=== PATIENT | male | born 1960 | race Caucasian/White ===

== ENCOUNTER 2018-10-03 16:18 | Inpatient (IN) ==
[2018-10-03] MEDS ORDERED: OXYCODONE Oral CONC 10 MG/0.5 ML ORAL.SYG SL PRN (22:08)
[2018-10-03] MEDS ORDERED: Naloxone 0.4 MG/ML INJ IVP PRN (22:08)
[2018-10-03] MEDS ORDERED: Ondansetron 4 MG/2 ML VIAL IVP PRN (22:08)
[2018-10-03] MEDS ORDERED: Dextrose Gel 15 GM/37.5 ML TUBE PO PRN ×2 (22:10)
[2018-10-03] MEDS ORDERED: D5% in Water 1,000 ML IVC PRN (22:10)
[2018-10-03] MEDS ORDERED: *HR* Dextrose 50 % in Water (Syg) 50 ML SYRINGE IVP PRN (22:10)
[2018-10-03] MEDS ORDERED: Nicotine 21 MG PATCH.TD24 TD SCH (22:15)
[2018-10-03] MEDS: 0.9 % Sodium Chloride 1,000 ML IVC SCH (22:49)
[2018-10-03] MEDS: OXYCODONE Oral CONC 10 MG/0.5 ML ORAL.SYG SL PRN (22:49)
[2018-10-03] MEDS: Insulin LISPRO 300 UNITS/3 ML VIAL SQ SCH (23:11)
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
[2018-10-04 01:14] LABS: Hematocrit 33.6 % (37.5-50.1); Hemoglobin 11.2 g/dL (12.9-16.9); Mean Corpuscular HGB Conc 33.3 g/dL (31.6-35.5); Mean Corpuscular Hemoglobin 30.9 pg (28.0-33.3); Mean Corpuscular Volume 92.8 fL (83.0-100.0); Mean Platelet Volume 9.4 fL (9.4-12.4); Platelet Count 268 K/mcL (140-400); Red Blood Count 3.62 M/mcL (4.19-5.50); Red Cell Distribution Width 11.6 % (11.5-14.5)
[2018-10-04 01:24] LABS: INR 1.3; Prothrombin Time 14.6 Seconds (9.4-12.1)
[2018-10-04 01:27] LABS: Activated Partial Thrombo Time 29.3 Seconds (26.0-36.0)
[2018-10-04 01:34] LABS: BUN/Creatinine Ratio 26 (6-26); Blood Urea Nitrogen 30 mg/dL (6-20); Calcium 8.1 mg/dL (8.6-10.3); Carbon Dioxide 26 mEq/L (23-29); Chloride 101 mEq/L (98-107); Glucose 173 mg/dL (70-105); Osmolality,Calculated 286 (280-300); Potassium 3.8 mEq/L (3.5-5.1); Sodium 133 mEq/L (136-145); eGFR For Non-African Americans > 60 (> 60)
[2018-10-04] MEDS: OXYCODONE Oral CONC 10 MG/0.5 ML ORAL.SYG SL PRN ×3 (02:49→20:27)
[2018-10-04] MEDS: Insulin LISPRO 300 UNITS/3 ML VIAL SQ SCH ×2 (05:31→12:10)
[2018-10-04] MEDS ORDERED: cefTRIAXone 1,000 MG in Water for inj. (sterile) 20 ML 10 ML IVP SCH (09:00)
[2018-10-04] MEDS: 0.9 % Sodium Chloride 1,000 ML IVC SCH (11:04)
[2018-10-04] MEDS: Cefepime HCl 2,000 MG in Water for inj. (sterile) 20 ML 20 ML IVP SCH (11:32)
[2018-10-04] MEDS: MetroNIDAZOLE 500 MG/100 ML 500 MG/100 ML BAG IVPB SCH ×3 (11:33→23:40)
[2018-10-04] MEDS ORDERED: Insulin LISPRO 300 UNITS/3 ML VIAL SQ SCH (12:42)
--- NOTE | 2018-10-04 12:43 | Internal Med Progress Note ---
Hospitalist Progress Note - Encounter Date of Encounter: 10/04/18 Time of Encounter: 12:40 - Subjective Interval History: Patient seen and examined at bedside. Patient reports significant pain in his right hand. He states he did have some redness previously traveling up his arm but this is resolved. Denies any fevers or chills. - Exam Vitals: Temp Pulse Resp BP Pulse Ox 98.2 F 77 15 102/57 92 10/04/18 11:07 10/04/18 11:07 10/04/18 11:07 10/04/18 11:07 10/04/18 11:07 Exam: Gen.: Alert and oriented 3, no acute distress Heart: Regular in rhythm, no murmurs, rubs, gallops Musculoskeletal: Right hand with large wound with underlying fluctuance and purulent drainage at the hyperthenar eminence. Mild erythema extending up to the fourth and fifth digits. Pain with active and passive range of motion. No erythema proximal to the wrist joint. - Assessment and Plan (1) Cellulitis of right hand Current Visit: Yes Status: Acute Assessment and Plan: Patient has significant cellulitis of the right hand with possible underlying abscess. I am concerned about tendon involvement. Secondary to penetrating wound with pieces of metal. Patient reports that his tetanus is up-to-date with the last 5 years. Currently on vancomycin and Rocephin, will discontinue Rocephin and add cefepime and metronidazole for pseudomonal and anaerobic coverage. Orthopedic consult pending, patient may or surgical intervention. (2) Diabetes Current Visit: Yes Status: Acute Assessment and Plan: Blood sugar mildly elevated above goal. Increase to monitor dose sliding scale every 6 hours while nothing by mouth. We will restart home but once the patient is eating. (3) DVT prophylaxis Current Visit: Yes Status: Acute Assessment and Plan: EPCDs - Time Spent with Patient Total time spent is greater than 50% in coordination of care (as documented) at patient's floor/unit and/or counseling patient: Internal Medicine: Result - Labs CBC & Chem 7: 10/04/18 00:52 10/04/18 00:52 Labs: Short CBC 10/04/18 Range/Units 00:52 WBC 11.4 H (4.3-11.1) K/mcL Hgb 11.2 L (12.9-16.9) g/dL Hct 33.6 L (37.5-50.1) % Plt Count 268 (140-400) K/mcL BMP 10/04/18 00:52 Sodium 133 L Potassium 3.8 Chloride 101 Carbon Dioxide 26 BUN 30 H Creatinine 1.14 Glucose 173 H Calcium 8.1 L - ABG Interpretation ABG results: PT/INR, D-dimer PT 14.6 Seconds (9.4-12.1) H 10/04/18 00:52 - Impressions Impressions Hand X-Ray 10/03/18 22:14 IMPRESSION: Soft tissue swelling and gas along the dorsal and ulnar aspect of the hand. No evidence of osteomyelitis involving the underlying 5th metacarpal which demonstrates evidence of prior (healed) injury. Radiopaque structure obscures the distal pinky and proximal ring finger. Mild osteoarthrosis. 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
[2018-10-04] MEDS ORDERED: Isovue-370 500 ML BOTTLE IVP ONE (14:58)
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
[2018-10-04] MEDS ORDERED: *HR* LORazepam 2 MG/ML VIAL IVP ONE (16:59)
[2018-10-04] MEDS ORDERED: *HR* Midazolam HCl 2 MG/2 ML VIAL ONE (17:33)
[2018-10-04] MEDS ORDERED: *HR* Propofol 200 MG/20 ML VIAL IVP ONE ×2 (17:33→17:39)
[2018-10-04] MEDS ORDERED: Lidocaine -MPF 2% 2 ML VIAL ONE ×2 (17:33→17:34)
[2018-10-04] MEDS ORDERED: *HR* FentaNYL (PF) 100 MCG/2 ML VIAL ONE (17:33)
[2018-10-04] MEDS ORDERED: Bupivacaine/EPI 1:200k 0.5%PF 10 ML VIAL ONE (17:38)
--- NOTE | 2018-10-04 17:48 | Anesthesia Evaluation PreOp ---
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: Other (hx drug abuse (most cocaine)) Other Medical History: Diabetes Type I Anesthesia History: No Prior Anesthetic Complications (except waking up in the middle of surgery) Alcohol Use: occasionally Drug use: cocaine, marijuana Medications and Allergies Acetaminophen [Tylenol] 650 mg PO QID PRN 10/04/18 [History] Albuterol Neb [Proventil Neb] 2.5 mg IH TID PRN 10/04/18 [History] Albuterol Sulfate [Ventolin Hfa] 2 puff IH QID PRN 10/04/18 [History] Amitriptyline HCl 100 mg PO HS 10/04/18 [History] Aspirin [Lo-Dose Aspirin EC] 81 mg PO DAILY 10/04/18 [History] Clindamycin [Cleocin] 300 mg PO QID 10/04/18 [History] Dapagliflozin Propanediol [Farxiga] 10 mg PO DAILY 10/04/18 [History] Gabapentin 800 mg PO TID 10/04/18 [History] Insulin Glargine [Lantus] 20 unit SQ BID 10/04/18 [History] Naproxen [Naprosyn] 250 mg PO TID PRN 10/04/18 [History] Tamsulosin HCl [Flomax] 0.4 mg PO HS 10/04/18 [History] Allergy/AdvReac Type Severity Reaction Status Date / Time Penicillins Allergy Anaphylaxis Verified 10/04/18 10:28 - Meds/Allergy Pre-op Review Medications Reviewed: Yes Allergies Reviewed: Yes Beta Blockers on Current Med List: No Anesthesia Results - Labs 10/04/18 00:52 10/04/18 00:52 Anesthesia Exam Weight: 70 kg NPO (# of Hours): > 8 hrs - HEENT Pupil (Motor): Pupils equal, EOMI Oral Opening: Greater than 3 - PIT FURNACE MELTER LOC: Oriented - Cardiac Rhythm: Regular - Pulmonary Breath Sounds: bilateral Clear Respiratory Effort: Symmetrical Anesthesia Assess/Plan ASA Score: 3 Level of consciousness: Cooperative Anesthetic Plan: General Monitoring Plan: Standard Monitors Recovery Plan: PACU
[2018-10-04] MEDS ORDERED: *HR* PHENYLEPHRINE 1,000 MCG/10 ML SYRINGE IVP ONE (17:57)
[2018-10-04] MEDS ORDERED: EPHEDrine 50 MG/ML VIAL ONE (18:06)
--- NOTE | 2018-10-04 18:35 | Orthopedic Operative Note ---
Date of procedure: 10/04/18 Procedure: OPERATIVE REPORT SURGEON: Henry Tate MD PREOPERATIVE DIAGNOSIS: Right hand abscess POSTOPERATIVE DIAGNOSIS: Right hand abscess PROCEDURE: Incision, drainage, irrigation, and debridement of the right hand ANESTHESIA: Gen. anesthesia SPECIMENS: Deep swabs taken for culture; soft tissue taken for culture PREOPERATIVE NOTE The surgical plan was reviewed with the patient. The risks, benefits, alternatives, and potential complications of this procedure were discussed with the patient including injury to veins, arteries, nerves, tendons, ligaments, and bone. Also discussed were the risks of infection, bleeding, pain, blood clots, the possible need for a blood transfusion, the possible need for further procedures, heart attack, stroke, and . Additional risks include the need for further debridements. All of this was explained in simple terms, and the patient verbalized understanding and wished to proceed. Consent was given to proceed with surgery. PROCEDURE: The patient was seen in the preoperative holding area where the identify and the consent were confirmed. The right hand was marked. Final questions were answered. The patient was brought back to the operating room and placed supine on the operating room table. A huddle was performed with the patient and all vital surgical team members confirming patient identity, the correct procedure, and the correct operative site. Gen. anesthesia was administered. The operative extremity was prepped and draped in the usual sterile fashion. A surgical time out was performed immediately preceding the incision with all personnel in the operating room to confirm patient identity, the correct operative site and extremity, correct radiographic studies, availability of appropriate surgical equipment, and agreement on the planned procedure. The tourniquet was inflated without exsanguination. Attention was first directed to the hyperthenar eminence region where there was the old puncture wound which was spread open decompressing grossly purulent material. This was swabbed for cultures. The wound was then opened proximally and distally by several centimeters and spread open. There was a significant amount of surrounding necrotic fat which was sharply debrided and sent for culture. The infection tracked down to the hyperthenar eminence which was opened but there was no further purulent material and relatively healthy-appearing musculature. Necrotic skin edges were debrided. Attention was then directed to the dorsum of the hand were a longitudinal incision was made over the fourth ray dorsally and the skin and subcutaneous tissue spread open decompressing a second pocket of grossly purulent material as indicated on the CT scan. Surrounding necrotic fat was also sharply debrided. Both wounds were irrigated with a total of 6 L of saline. The wound beds looked clean after debridement and irrigation. There packed open with quarter-inch iodoform packing. A soft, sterile dressing was applied. The instrument, sponge, and needle counts were correct after wound closure. POST OPERATIVE PLAN: Daily local wound care with dressing changes and possible second look I&D on Tuesday if not improving clinically. Was there an mobile unit assistant present: No Estimated blood loss (cc): 2
[2018-10-04] MEDS ORDERED: D5% in Water 1,000 ML IVC PRN (19:20)
[2018-10-04] MEDS ORDERED: Ondansetron 4 MG/2 ML VIAL IVP PRN (19:20)
[2018-10-04] MEDS ORDERED: Dextrose Gel 15 GM/37.5 ML TUBE PO PRN ×2 (19:20)
[2018-10-04] MEDS ORDERED: OXYCODONE Oral CONC 10 MG/0.5 ML ORAL.SYG SL PRN (19:20)
[2018-10-04] MEDS ORDERED: *HR* Dextrose 50 % in Water (Syg) 50 ML SYRINGE IVP PRN (19:20)
[2018-10-04] MEDS ORDERED: Naloxone 0.4 MG/ML INJ IVP PRN (19:20)
[2018-10-04] MEDS: Gabapentin 400 MG CAPSULE PO SCH (20:27)
[2018-10-04] MEDS: Nicotine 21 MG PATCH.TD24 TD SCH (20:28)
[2018-10-04] MEDS ORDERED: Gabapentin 400 MG CAPSULE PO SCH (21:00)
--- NOTE | 2018-10-04 23:26 | Anesthesia Evaluation Post Op ---
Date of Encounter: 10/04/18 Time of Encounter: 19:00 - Vital Signs Vital Signs: Vital Signs Temp Pulse Resp BP Pulse Ox 10/04/18 18:58 98.7 F 92 18 104/61 98 10/04/18 18:48 91 17 100/59 93 10/04/18 18:38 90 18 91/54 94 10/04/18 18:28 100.2 F H 87 18 96/54 98 10/04/18 14:32 98.9 F 89 15 136/83 98 10/04/18 11:07 98.2 F 77 15 102/57 92 10/04/18 06:51 98.8 F 90 15 102/64 91 10/04/18 05:27 99.9 F H 96 15 109/64 93 10/03/18 23:30 99.3 F 86 15 141/74 93 Intake and Output 10/04/18 10/04/18 10/04/18 07:59 15:59 23:59 Intake Total 1000 / 1100 100 / 1100 Output Total 0 / 2 0 / 2 2 / 2 Balance 1000 / 1098 100 / 1098 -2 / 1098 Intake: IV Fluids 1000 / 1100 100 / 1100 0.9 % Sodium Chloride 1,000 ML 1000 / 1000 @ 125 mls/hr IVC .Q8H [facility] Rx#: [id number] Flagyl Premix 500 MG/100 ML 500 100 / 100 mg In 100 ml @ 100 mls/hr IVPB Q8HR [facility] Rx#:[id number] Oral 0 / 0 0 / 0 Output: Urine 0 / 0 0 / 0 Estimated Blood Loss 2 / 2 Other: Meal BREAKFAST NPO NPO Percent of Meal Consumed 0% Weight 70.3 kg Blood Glucose* 228 237 102 Patient Weight 10/04/18 23:59 Weight 70.3 kg - Lungs Lungs: Clear Ascult./Percussion - Airway Airway: Non-obstructed - Cardiovascular Regular Rate - Mental Status Mental Status: Alert & Oriented, Answers Appropriately - Nausea Vomiting Nausea Vomiting: Not Present - Hydration Hydration: Tolerates oral liquids, Has not voided - Discharge PostOp Status: Transfer Patient to floor Anes Supervising Prov Stmt: Pt seen/evaluated, VSS And has met criteria for discharge to floor. - MD Irena
[2018-10-05] MEDS: Insulin LISPRO 300 UNITS/3 ML VIAL SQ SCH ×4 (04:00→18:29)
[2018-10-05] MEDS: Cefepime HCl 2,000 MG in Water for inj. (sterile) 20 ML 20 ML IVP SCH ×3 (05:05→18:43)
[2018-10-05] MEDS: OXYCODONE Oral CONC 10 MG/0.5 ML ORAL.SYG SL PRN ×3 (05:06→21:05)
--- NOTE | 2018-10-05 07:46 | Orthopedics Progress Note ---
Date of Encounter: 10/05/18 Time of Encounter: 07:43 - Assessment and Plan (1) Cellulitis of right hand Current Visit: Yes Status: Acute Subjective Interval history: S: Patient resting in bed comfortably. Says his hand on the right feels significantly better than yesterday after decompression of the abscess O: Low-grade temps overnight but currently afebrile on the vital signs are stable Wound beds look good without any purulent drainage. They are repacked open Slight improvement of the swelling Improved erythema Decreased motion of the digits due to pain inhibition and swelling Sensation is at his baseline Cultures pending AM labs pending A: I&D of the right hand, postoperative day 1 P: Twice daily dressing and packing changes Antibiotics per the primary team Follow cultures Elevation Objective Vital signs: Vital Signs Temp Pulse Resp BP Pulse Ox 10/05/18 06:42 99.0 F 84 15 102/65 96 10/05/18 03:57 100.4 F H 87 15 140/71 94 10/04/18 23:00 82 109/68 10/04/18 22:00 81 108/66 10/04/18 21:00 81 110/69 10/04/18 20:30 85 101/64 10/04/18 20:00 86 103/65 10/04/18 19:45 88 104/68 10/04/18 19:25 88 18 102/66 100 10/04/18 18:58 98.7 F 92 18 104/61 98 10/04/18 18:48 91 17 100/59 93 10/04/18 18:38 90 18 91/54 94 10/04/18 18:28 100.2 F H 87 18 96/54 98 10/04/18 14:32 98.9 F 89 15 136/83 98 10/04/18 11:07 98.2 F 77 15 102/57 92 Intake and Output 10/04/18 10/04/18 10/05/18 15:59 23:59 07:59 Intake Total 100 / 1100 0 / 0 Output Total 0 / 2 2 / 2 900 / 900 Balance 100 / 1098 -2 / 1098 -900 / -900 Intake: IV Fluids 100 / 1100 Flagyl Premix 500 MG/100 ML 500 100 / 100 mg In 100 ml @ 100 mls/hr IVPB Q8HR [facility] Rx#:[id number] Oral 0 / 0 0 / 0 Output: Urine 0 / 0 900 / 900 Estimated Blood Loss 2 / 2 Other: Meal BREAKFAST NPO NPO Percent of Meal Consumed 0% Blood Glucose* 237 102 128 - Labs CBC & BMP: 10/04/18 00:52 10/04/18 00:52 Labs: Abnormal lab results WBC 11.4 K/mcL (4.3-11.1) H 10/04/18 00:52 RBC 3.62 M/mcL (4.19-5.50) L 10/04/18 00:52 Hgb 11.2 g/dL (12.9-16.9) L 10/04/18 00:52 Hct 33.6 % (37.5-50.1) L 10/04/18 00:52 PT 14.6 Seconds (9.4-12.1) H 10/04/18 00:52 Sodium 133 mEq/L (136-145) L 10/04/18 00:52 BUN 30 mg/dL (6-20) H 10/04/18 00:52 Glucose 173 mg/dL (70-105) H 10/04/18 00:52 POC Glucose 102 mg/dL (70-99) H 10/04/18 18:38 Calcium 8.1 mg/dL (8.6-10.3) L 10/04/18 00:52 Consult Discharge Plan - Plan Referrals: NONE,PCP [Primary Care Provider] -
[2018-10-05 08:58] LABS: Basophils % 0.4 %; Eosinophils # 0.1 K/mcL (0.0-0.6); Eosinophils % 1.1 %; Hematocrit 34.2 % (37.5-50.1); Hemoglobin 11.2 g/dL (12.9-16.9); Immature Granulocytes % 0.4 % (0-4); Lymphocytes # 1.3 K/mcL (0.6-4.6); Lymphocytes % 12.6 %; Mean Corpuscular HGB Conc 32.7 g/dL (31.6-35.5); Mean Corpuscular Hemoglobin 31.2 pg (28.0-33.3); Mean Corpuscular Volume 95.3 fL (83.0-100.0); Mean Platelet Volume 9.2 fL (9.4-12.4); Monocytes # 0.7 K/mcL (0.0-1.3); Monocytes % 6.5 %; Neutrophils # 8.2 K/mcL (1.6-8.9); Platelet Count 258 K/mcL (140-400); Red Blood Count 3.59 M/mcL (4.19-5.50); Red Cell Distribution Width 11.8 % (11.5-14.5)
[2018-10-05 09:09] LABS: BUN/Creatinine Ratio 18 (6-26); Blood Urea Nitrogen 13 mg/dL (6-20); Calcium 8.3 mg/dL (8.6-10.3); Carbon Dioxide 23 mEq/L (23-29); Chloride 102 mEq/L (98-107); Glucose 105 mg/dL (70-105); Magnesium 1.9 mg/dL (1.6-2.6); Osmolality,Calculated 276 (280-300); Potassium 4.4 mEq/L (3.5-5.1); Sodium 133 mEq/L (136-145); eGFR For Non-African Americans > 60 (> 60)
[2018-10-05] MEDS: MetroNIDAZOLE 500 MG/100 ML 500 MG/100 ML BAG IVPB SCH ×3 (10:24→23:26)
[2018-10-05] MEDS: Gabapentin 400 MG CAPSULE PO SCH ×3 (10:24→21:05)
--- NOTE | 2018-10-05 11:16 | Internal Med Progress Note ---
Hospitalist Progress Note - Encounter Date of Encounter: 10/05/18 Time of Encounter: 11:13 - Subjective Interval History: Patient seen and examined at bedside. Patient states he feels slightly better today. He still reports significant pain in his right hand but feels like this is improved after surgery. Denies any fevers or chills. - Exam Vitals: Temp Pulse Resp BP Pulse Ox 98.0 F 82 15 96/54 93 10/05/18 10:32 10/05/18 10:32 10/05/18 10:32 10/05/18 10:32 10/05/18 10:32 Exam: Gen.: Alert and oriented 3, no acute distress Heart: Regular in rhythm, no murmurs, rubs, gallops Musculoskeletal: Right hand has large bulky dressing in place that is clean dry and intact. He has tenderness with active and passive range of motion of the fourth and fifth digit of the right hand. - Assessment and Plan (1) Cellulitis of right hand Current Visit: Yes Status: Acute Assessment and Plan: Postop day 1 status post surgical debridement of right hand cellulitis/abscess. Cultures are pending. Continue broad-spectrum antibiotics with vancomycin, cefepime, metronidazole. We will await culture results and de-escalate antibiotics based on culture results. Appreciate orthopedics assistance and patient may require further surgical debridement this hospitalization. (2) Diabetes Current Visit: Yes Status: Acute Assessment and Plan: Blood sugars under good control. The patient is eating we will transition to Lantus with mealtime sliding scale coverage. Continue monitor blood sugars. (3) DVT prophylaxis Current Visit: Yes Status: Acute Assessment and Plan: EPCDs - Time Spent with Patient Total time spent is greater than 50% in coordination of care (as documented) at patient's floor/unit and/or counseling patient: Internal Medicine: Result - Labs CBC & Chem 7: 10/05/18 08:02 10/05/18 08:02 Labs: Short CBC 10/05/18 Range/Units 08:02 WBC 10.4 (4.3-11.1) K/mcL Hgb 11.2 L (12.9-16.9) g/dL Hct 34.2 L (37.5-50.1) % Plt Count 258 (140-400) K/mcL Neutrophils # 8.2 (1.6-8.9) K/mcL BMP 10/05/18 08:02 Sodium 133 L Potassium 4.4 Chloride 102 Carbon Dioxide 23 BUN 13 Creatinine 0.72 Glucose 105 Calcium 8.3 L - ABG Interpretation ABG results: PT/INR, D-dimer PT 14.6 Seconds (9.4-12.1) H 10/04/18 00:52 - Impressions Impressions Hand CT 10/04/18 14:58 IMPRESSION: 1. Large rim enhancing fluid collection centered along the ulnar aspect of the hand along the length of the 5th metacarpal and extending along the dorsal aspect of the 5th MCP joint which contains a large amount of gas and is consistent with abscess. This extends to the volar skin surface and measures 1.5 x 3.0 x 4.8 cm. A 2nd small circumscribed collection dorsal to the 4th metacarpal head is also present measuring 0.5 x 0.6 x 1.0 cm compatible with 2nd small abscess. Extensive soft tissue edema. 2. No acute fracture identified and no CT evidence for osteomyelitis at this time. D/ / Barry Pina MD / Barry Pina MD Interpreting Provider: Barry Pina MD Consult Discharge Plan - Plan Referrals: NONE,PCP [Primary Care Provider] - ___ (2) Diabetes Qualifiers: Diabetes mellitus type: type 2 Diabetes mellitus detention insulin use: without adjunct faculty for medical terminology use Diabetes mellitus complication status: with hyperglycemia Qualified Code(s): E11.65 - Type 2 diabetes mellitus with hyperglycemia
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
[2018-10-05] MEDS ORDERED: Insulin DETEMIR 100 UNIT/ML X5UNITS SQ SCH (21:00)
[2018-10-05] MEDS ORDERED: Insulin LISPRO 300 UNITS/3 ML VIAL SQ SCH (21:00)
[2018-10-05] MEDS: Nicotine 21 MG PATCH.TD24 TD SCH (21:06)
[2018-10-06] MEDS: Cefepime HCl 2,000 MG in Water for inj. (sterile) 20 ML 20 ML IVP SCH (05:55)
--- NOTE | 2018-10-06 07:41 | Orthopedics Progress Note ---
Date of Encounter: 10/06/18 Time of Encounter: 07:37 - Assessment and Plan (1) Cellulitis of right hand Current Visit: Yes Status: Acute Subjective Interval history: S: Patient resting in bed comfortably. Continued pain on the ulnar side of the right hand, at this point more focused on the webspace volarly and dorsally between the ring and small fingers O: Afebrile on the vital signs are stable I&D site wounds look good without any purulence Persistent significant swelling and erythema Significant tenderness over the volar and dorsal webspace between the ring and small fingers Grossly flexes and extends the digits with limitation due to pain Fingertips are sensate at his baseline and well-perfused Labs pending Preliminary culture results show gram-negative species A: Hand infection, right, postoperative day 2 after I&D P: At this point my recommendation is second look I&D, particularly focused on the webspace between the ring and small fingers given the significant tenderness and swelling in this area. We will proceed today to the operating room for washout. Continue elevation of the right upper extremity Continue IV antibiotics per the primary team and the infectious disease teams. Objective Vital signs: Vital Signs Temp Pulse Resp BP Pulse Ox 10/06/18 04:44 98.9 F 88 19 122/74 90 10/06/18 00:19 99.3 F 86 16 120/74 90 10/05/18 21:09 93 10/05/18 20:30 99.2 F 89 18 109/68 93 10/05/18 14:03 98.1 F 89 15 106/69 93 10/05/18 10:32 98.0 F 82 15 96/54 93 10/05/18 09:00 93 Intake and Output 10/05/18 10/05/18 10/06/18 15:59 23:59 07:59 Intake Total 580 / 1950 1000 / 1950 370 / 370 Output Total 500 / 1400 0 / 1400 Balance 80 / 550 1000 / 550 370 / 370 Intake: IV Fluids 100 / 1470 1000 / 1470 370 / 370 Maxipime 2,000 MG In Water for 40 / 60 20 / 20 inj. (sterile) 20 ML @ 300 mls/ hr IVP Q12HR [facility] Rx#:[id number] Rocephin 1,000 MG In Water for 10 / 10 inj. (sterile) 10 ML @ 600 mls/ hr IVP DAILY [facility] Rx#:[id number] Flagyl Premix 500 MG/100 ML 500 100 / 400 200 / 400 100 / 100 mg In 100 ml @ 100 mls/hr IVPB Q8HR [facility] Rx#:[id number] Vancocin 1,000 MG In 0.9 % 500 / 750 250 / 250 Sodium Chloride 250 ML @ 167 mls/hr IVPB Q12H [facility] Rx#: [id number] Vancocin 1,500 MG In 0.9 % 250 / 250 Sodium Chloride 250 ML @ 166.67 mls/hr IVPB ONCE ONE Rx#: [id number] Oral 480 / 480 0 / 480 Output: Urine 500 / 1400 0 / 1400 Other: Meal Breakfast Percent of Meal Consumed 100% Blood Glucose* 208 187 - Labs CBC & BMP: 10/05/18 08:02 10/05/18 08:02 Labs: Abnormal lab results WBC 11.4 K/mcL (4.3-11.1) H 10/04/18 00:52 RBC 3.59 M/mcL (4.19-5.50) L 10/05/18 08:02 Hgb 11.2 g/dL (12.9-16.9) L 10/05/18 08:02 Hct 34.2 % (37.5-50.1) L 10/05/18 08:02 MPV 9.2 fL (9.4-12.4) L 10/05/18 08:02 PT 14.6 Seconds (9.4-12.1) H 10/04/18 00:52 Sodium 133 mEq/L (136-145) L 10/05/18 08:02 BUN 30 mg/dL (6-20) H 10/04/18 00:52 Glucose 173 mg/dL (70-105) H 10/04/18 00:52 POC Glucose 187 mg/dL (70-99) H 10/05/18 20:27 276 (280-300) L 10/05/18 08:02 Calcium 8.3 mg/dL (8.6-10.3) L 10/05/18 08:02 Vancomycin Trough 11 mcg/mL (5-10) H 10/05/18 11:13 Consult Discharge Plan - Plan Referrals: NONE,PCP [Primary Care Provider] -
[2018-10-06 08:16] LABS: Basophils % 0.5 %; Eosinophils # 0.1 K/mcL (0.0-0.6); Eosinophils % 1.7 %; Hematocrit 35.8 % (37.5-50.1); Hemoglobin 11.8 g/dL (12.9-16.9); Immature Granulocytes % 0.5 % (0-4); Lymphocytes # 1.4 K/mcL (0.6-4.6); Lymphocytes % 22.7 %; Mean Corpuscular Hemoglobin 31.2 pg (28.0-33.3); Mean Corpuscular Volume 94.7 fL (83.0-100.0); Mean Platelet Volume 8.9 fL (9.4-12.4); Monocytes # 0.5 K/mcL (0.0-1.3); Monocytes % 7.9 %; Neutrophils # 4.2 K/mcL (1.6-8.9); Platelet Count 302 K/mcL (140-400); Red Blood Count 3.78 M/mcL (4.19-5.50); Red Cell Distribution Width 11.6 % (11.5-14.5); Segmented Neutrophils % 66.7 %
[2018-10-06] MEDS: Insulin LISPRO 300 UNITS/3 ML VIAL SQ SCH ×2 (08:30→18:14)
[2018-10-06 08:31] LABS: Blood Urea Nitrogen 16 mg/dL (6-20); Calcium 8.8 mg/dL (8.6-10.3); Carbon Dioxide 28 mEq/L (23-29); Chloride 98 mEq/L (98-107); Glucose 228 mg/dL (70-105); Magnesium 1.9 mg/dL (1.6-2.6); Osmolality,Calculated 282 (280-300); Potassium 4.3 mEq/L (3.5-5.1); Sodium 132 mEq/L (136-145)
[2018-10-06 09:08] LABS: BUN/Creatinine Ratio 20 (6-26); eGFR For Non-African Americans > 60 (> 60)
[2018-10-06] MEDS: Gabapentin 400 MG CAPSULE PO SCH ×3 (10:12→21:05)
--- NOTE | 2018-10-06 10:22 | Anesthesia Evaluation PreOp ---
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 Any Significant HX Other Medical History: Diabetes Type I Anesthesia History: No Prior Anesthetic Complications, Past Anesthesia (I &D R hand) Alcohol Use: occasionally Drug use: cocaine, marijuana Medications and Allergies Acetaminophen [Tylenol] 650 mg PO QID PRN 10/04/18 [History] Albuterol Neb [Proventil Neb] 2.5 mg IH TID PRN 10/04/18 [History] Albuterol Sulfate [Ventolin Hfa] 2 puff IH QID PRN 10/04/18 [History] Amitriptyline HCl 100 mg PO HS 10/04/18 [History] Aspirin [Lo-Dose Aspirin EC] 81 mg PO DAILY 10/04/18 [History] Clindamycin [Cleocin] 300 mg PO QID 10/04/18 [History] Dapagliflozin Propanediol [Farxiga] 10 mg PO DAILY 10/04/18 [History] Gabapentin 800 mg PO TID 10/04/18 [History] Insulin Glargine [Lantus] 20 unit SQ BID 10/04/18 [History] Naproxen [Naprosyn] 250 mg PO TID PRN 10/04/18 [History] Tamsulosin HCl [Flomax] 0.4 mg PO HS 10/04/18 [History] Allergy/AdvReac Type Severity Reaction Status Date / Time Penicillins Allergy Anaphylaxis Verified 10/04/18 10:28 - Meds/Allergy Pre-op Review Medications Reviewed: Yes Allergies Reviewed: Yes Beta Blockers on Current Med List: No Anesthesia Results - Labs 10/06/18 07:59 10/06/18 07:59 Anesthesia Exam Vital Signs/O2 Sat, Most Current Temp Pulse Resp BP Pulse Ox 98.6 F 89 16 107/61 90 10/06/18 08:22 10/06/18 08:22 10/06/18 08:22 10/06/18 08:22 10/06/18 08:22 Weight: 70kg NPO (# of Hours): >8 - HEENT Pupil (Motor): Pupils equal, EOMI Mallampati: II Teeth: Edentulous Oral Opening: Greater than 3 - SHOT PEEN OPERATOR LOC: Oriented SHOT PEEN OPERATOR Motor: Normal RUE, Normal LUE, Normal RLE, Normal LLE, Normal Face SHOT PEEN OPERATOR Sensory: Normal: RUE, LUE, RLE, LLE, Face - Cardiac Rhythm: Regular - Pulmonary Breath Sounds: bilateral Clear Respiratory Effort: Symmetrical Anesthesia Assess/Plan ASA Score: 3 Level of consciousness: Cooperative Anesthetic Plan: General Monitoring Plan: Standard Monitors Recovery Plan: PACU
[2018-10-06] MEDS ORDERED: Lidocaine/EPI 1:200k 1% PF 10 ML VIAL ONE (10:38)
[2018-10-06] MEDS ORDERED: *HR* Midazolam HCl 2 MG/2 ML VIAL ONE (10:43)
[2018-10-06] MEDS ORDERED: *HR* Propofol 200 MG/20 ML VIAL IVP ONE (10:43)
[2018-10-06] MEDS ORDERED: *HR* FentaNYL (PF) 100 MCG/2 ML VIAL ONE (10:43)
[2018-10-06] MEDS ORDERED: Lidocaine -MPF 2% 2 ML VIAL ONE (10:43)
[2018-10-06] MEDS ORDERED: KETAMINE HCL 50 MG/ML SYRINGE ONE (10:47)
[2018-10-06] MEDS ORDERED: Ondansetron 4 MG/2 ML VIAL ONE (10:51)
[2018-10-06] MEDS ORDERED: *HR* Meperidine 25 MG/ML SYRINGE IVP PRN ×2 (10:57→13:02)
[2018-10-06] MEDS ORDERED: Ondansetron 4 MG/2 ML VIAL IVP ONE ×2 (10:57→13:02)
[2018-10-06] MEDS ORDERED: *HR* OxyCODONE Immed Rel 5 MG TABLET PO PRN ×2 (10:57→13:02)
[2018-10-06] MEDS ORDERED: *HR* Promethazine 25 MG/ML VIAL IVP PRN ×2 (10:57→13:02)
[2018-10-06] MEDS ORDERED: Ringers Solution, Lactated 1,000 ML IVC SCH ×2 (11:00→13:02)
[2018-10-06] MEDS ORDERED: Albuterol 2.5 MG/3 ML NEBULIZER ONE (11:10)
[2018-10-06] MEDS: MetroNIDAZOLE 500 MG/100 ML 500 MG/100 ML BAG IVPB SCH (11:16)
[2018-10-06] MEDS: Albuterol 2.5 MG/3 ML NEBULIZER IH ONE ×2 (11:17→17:46)
[2018-10-06] MEDS ORDERED: *HR* PHENYLEPHRINE 1,000 MCG/10 ML SYRINGE IVP ONE (11:45)
--- NOTE | 2018-10-06 12:11 | Internal Med Progress Note ---
Hospitalist Progress Note - Encounter Date of Encounter: 10/06/18 Time of Encounter: 12:09 - Subjective Interval History: Patient seen and examined at bedside. Patient states that he feels okay today. He reports continued pain in his right hand but feels like it slightly better. Denies fevers or chills. - Exam Vitals: Temp Pulse Resp BP Pulse Ox 98.6 F 89 16 107/61 93 10/06/18 08:22 10/06/18 08:22 10/06/18 11:18 10/06/18 08:22 10/06/18 11:18 Exam: Gen.: Alert and oriented 3, no acute distress Heart: Regular in rhythm, no murmurs, rubs, gallops Musculoskeletal: Right hand has large bulky dressing in place that is clean dry and intact. He has tenderness with active and passive range of motion of the fourth and fifth digit of the right hand, slightly improved from yesterday. - Assessment and Plan (1) Cellulitis of right hand Current Visit: Yes Status: Acute Assessment and Plan: Postop day 2 status post initial surgical debridement of right hand cellulitis/abscess. Patient is going back to the ER today for further debridement. Initial wound cultures are positive for Klebsiella oxytoca and Citrobacter braakii, initial surgical cultures were also positive for 2 gram- negative rods however final ID is pending. Continue broad-spectrum antibiotics with vancomycin, cefepime, metronidazole for now. Have consulted infectious disease for further antibiotic recommendations. Appreciate orthopedics assistance. (2) Diabetes Current Visit: Yes Status: Acute Assessment and Plan: Blood sugars mildly elevated. Will not adjust insulin at this time as the patient is nothing by mouth for surgical intervention. Continue monitor blood sugars. (3) DVT prophylaxis Current Visit: Yes Status: Acute Assessment and Plan: EPCDs - Time Spent with Patient Total time spent is greater than 50% in coordination of care (as documented) at patient's floor/unit and/or counseling patient: Internal Medicine: Result - Labs CBC & Chem 7: 10/06/18 07:59 10/06/18 07:59 Labs: Short CBC 10/06/18 Range/Units 07:59 WBC 6.3 (4.3-11.1) K/mcL Hgb 11.8 L (12.9-16.9) g/dL Hct 35.8 L (37.5-50.1) % Plt Count 302 (140-400) K/mcL Neutrophils # 4.2 (1.6-8.9) K/mcL BMP 10/06/18 07:59 Sodium 132 L Potassium 4.3 Chloride 98 Carbon Dioxide 28 BUN 16 Creatinine 0.82 Glucose 228 H Calcium 8.8 - ABG Interpretation ABG results: PT/INR, D-dimer PT 14.6 Seconds (9.4-12.1) H 10/04/18 00:52 Consult Discharge Plan - Plan Referrals: NONE,PCP [Primary Care Provider] - (2) Diabetes Qualifiers: Diabetes mellitus type: type 2 Diabetes mellitus long winder tender insulin use: without long winder tender use Diabetes mellitus complication status: with hyperglycemia Qualified Code(s): E11.65 - Type 2 diabetes mellitus with hyperglycemia
--- NOTE | 2018-10-06 12:54 | Anesthesia Evaluation Post Op ---
Date of Encounter: 10/06/18 Time of Encounter: 12:53 - Vital Signs Vital Signs: Vital Signs/O2 Sat, Most Current Temp Pulse Resp BP Pulse Ox 98.4 F 82 16 116/66 95 10/06/18 12:36 10/06/18 12:46 10/06/18 12:46 10/06/18 12:46 10/06/18 12:46 - Lungs Lungs: Clear Ascult./Percussion - Airway Airway: Non-obstructed - Cardiovascular Regular Rate - Mental Status Mental Status: Alert & Oriented, Answers Appropriately - Pain Pain Scale: 0 Pain Scale used: Numeric (1 - 10) - Nausea Vomiting Nausea Vomiting: Not Present - Hydration Hydration: Ice chips, Has not voided - Discharge PostOp Status: Transfer Patient to floor
[2018-10-06] MEDS ORDERED: *HR* Dextrose 50 % in Water (Syg) 50 ML SYRINGE IVP PRN (13:02)
[2018-10-06] MEDS ORDERED: OXYCODONE Oral CONC 10 MG/0.5 ML ORAL.SYG SL PRN (13:02)
[2018-10-06] MEDS ORDERED: Dextrose Gel 15 GM/37.5 ML TUBE PO PRN ×2 (13:02)
[2018-10-06] MEDS ORDERED: Ondansetron 4 MG/2 ML VIAL IVP PRN (13:02)
[2018-10-06] MEDS ORDERED: D5% in Water 1,000 ML IVC PRN (13:02)
[2018-10-06] MEDS ORDERED: Naloxone 0.4 MG/ML INJ IVP PRN (13:02)
--- NOTE | 2018-10-06 13:58 | Infectious Disease Progress No ---
ID Progress Note Date of Encounter: 10/06/18 Time of Encounter: 13:55 - Subjective Subjective: Patient seen and examined. No acute events noted overnight. Status post repeat I & D and washout this morning. Remains very drowsy and ROS unobtainable. No new issues per nursing. - Objective CBC & Chem 7: 10/09/18 03:49 10/09/18 03:49 - Exam Vitals: Temp Pulse Resp BP Pulse Ox 98.4 F 82 16 116/66 95 10/06/18 12:36 10/06/18 12:46 10/06/18 12:46 10/06/18 12:46 10/06/18 12:46 Exam: Head: Atraumatic, normal inspection, normocephalic. Eye: EOMI, PERRLA, no scleral icterus noted. ENT: Mucous membranes moist. No odontogenic infection noted. Neck: Normal inspection, no meningismus. Respiratory: Clear to auscultation. No rales, respiratory distress, rhonchi, or wheezes noted. Cardiovascular: Regular rate and rhythm, S1 and S2 audible. No murmurs, rubs, or gallops. GI: Soft, nondistended, normal bowel sounds. Extremities:No joint swelling, pedal edema, or tenderness noted. Post-op dressing noted to the right hand. Edema of the exposed fingers noted Cap refill brisk. Neurological: Drowsy, awakens to verbal stimuli but falls back to sleep. Follows commands. Psychiatric: normal affect, normal mood. Skin: Dry, intact, warm. Normal color. No rashes. - Assessment and Plan (1) Sepsis Current Visit: Yes Status: Acute The patient had two SIRS criteria on admission. Likely secondary to right hand cellulitis and abscess. Improved. WBC normal. Afebrile. No tachycardia or tachypnea. Blood cultures drawn 10/04/18 are NGTD x 2 sets. Qualifiers: Sepsis type: sepsis due to unspecified organism Qualified Code(s): A41.9 - Sepsis, unspecified organism SNOMED Code(s): 63632845 (2) Abscess of right hand Current Visit: Yes Status: Acute Location: Right hand. Causative organism: K. oxytoca and C. braakii. Secondary to puncture wound after a fall. Failed outpatient oral antibiotics (Clindamycin). Tetanus vaccine UTD per patient report. CT hand revealed a large rim-enhancing fluid collection centered along the ulnar aspect of the hand along the length of the fifth metacarpal and extending along the dorsal aspect of the fifth MCP joint which contained a large amount of gas and is consistent with abscess. This extends to the volar skin surface and measures 1.5 x 3 x 4.8 cm. A second small circumscribed collection dorsal to the fourth metacarpal head is also present compatible with a second small abscess. Status post I&D by Dr. Collado 10/04/2018; Intra-Op purulence, necrotic tissue was noted Pre-op swab cultures and intra-op cultures positive as above. Currently on Vanc, cefepime, and flagyl. SNOMED Code(s): 31171618391813065 (3) Cellulitis of right hand Current Visit: Yes Status: Acute Location: Right hand. Causative organism: K. oxytoca and C. braakii. Secondary to puncture injury. Currently on Vanc, cefepime, and flagyl. SNOMED Code(s): 31997224 (4) Fall Current Visit: Yes Status: Acute Qualifiers: Encounter type: subsequent encounter Qualified Code(s): W19.XXXD - Unspecified fall, subsequent encounter SNOMED Code(s): 0449769, 036617951 (5) PTSD (post-traumatic stress disorder) Current Visit: Yes Status: Acute SNOMED Code(s): 74625426 (6) Tobacco abuse Current Visit: Yes Status: Acute Patient smokes 3-4 packs a day. Declined nicotine patch. SNOMED Code(s): 120729001 (7) Allergy to multiple antibiotics Current Visit: Yes Status: Acute Allergy to penicillin. Patient told me when his very young/a young child he had anaphylaxis. Tolerating cefepime just fine. SNOMED Code(s): 670279692681458 (8) Diabetes Current Visit: Yes Status: Acute Recommend aggressive glucose monitoring and control to promote wound healing and prevent re-infection. 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 Wound care and activity per the ortho team. Discontinue Vanc and Cefepime. Start Rocephin 2 grams IV daily. Continue flagyl 500mg TID, but transition to PO. Duration of treatment depends on the clinical picture. Monitor renal function and dose-adjust antibiotics. Consult Discharge Plan - Plan Referrals: NONE,PCP [Primary Care Provider] - - Attending Attestation I have personally performed a face to face evaluation on this patient. I have reviewed and agree with the care plan. History and Exam by me shows: Assessment and Plan: 1. Sepsis 2. Abscess of the R hand; Cx + K oxytoca and Citrobacter 3. PTSD 4. Tobacco abuse Recommendations: Await intra-op cultures to finalize. Wound care and activity per the ortho team. Discontinue Vanc and Cefepime. Start Rocephin 2 grams IV daily. Continue flagyl 500mg TID, but transition to PO. Duration of treatment depends on the clinical picture. Monitor renal function and dose-adjust antibiotics.
--- NOTE | 2018-10-06 14:43 | Orthopedic Operative Note ---
Date of procedure: 10/06/18 Procedure: OPERATIVE REPORT SURGEON: Henry Tate MD PREOPERATIVE DIAGNOSIS: Right hand infection POSTOPERATIVE DIAGNOSIS: Right hand infection with collar-button abscess between the ring and small finger rays PROCEDURE: Second look incision, drainage, irrigation, and debridement of the right hand with drainage of collar-button abscess ANESTHESIA: Gen. anesthesia SPECIMENS: Cultures were obtained PREOPERATIVE NOTE The surgical plan was reviewed with the patient. The risks, benefits, al ternatives, and potential complications of this procedure were discussed with the patient including injury to veins, arteries, nerves, tendons, ligaments, and bone. Also discussed were the risks of infection, bleeding, pain, blood clots, the possible need for a blood transfusion, the possible need for further procedures, heart attack, stroke, and . Additional risks include persistent symptoms and the need for further debridements. All of this was explained in simple terms, and the patient verbalized understanding and wished to proceed. Consent was given to proceed with surgery. PROCEDURE: The patient was seen in the preoperative holding area where the identify and the consent were confirmed. The right hand was marked. Final questions were answered. The patient was brought back to the operating room and placed supine on the operating room table. A huddle was performed with the patient and all vital surgical team members confirming patient identity, the correct procedure, and the correct operative site. Gen. anesthesia was administered. The operative extremity was prepped and draped in the usual sterile fashion. A surgical time out was performed immediately preceding the incision with all personnel in the operating room to confirm patient identity, the correct operative site and extremity, correct radiographic studies, availability of appropriate surgical equipment, and agreement on the planned procedure. Tourniquet was inflated without exsanguination. The areas of previous I&D were explored. The volar wound had tenderness exudate in the wound bed which was sharply debrided. More distally the wound was spread open and a small amount of grossly purulent material was obtained. The incision was carried distally in Dilcia fashion over the volar webspace between the ring and small fingers and into the proximal portion of the small finger. This did decompress new purulent material within the webspace. This was copiously irrigated after cultures were obtained. The flexor tendon sheath of the small finger was identified, taking care to protect the neurovascular bundles and there is no purulence within the tendon sheath. There was a moderate amount of necrotic fat within this area of the wound bed which was sharply excised. After copious irrigation and attention was directed dorsally where the wound was spread open. Dissection proceeded de eper between the dorsal, distal ring and small finger metacarpals in the area of the webspace to communicate volarly. This area was also further irrigated. No significant purulence. Moderate amount of necrotic fat was sharply debrided. A total of 6 L of saline was used for the irrigation portion and the center portion of the volar wound was closed with nylon stitches allowing the proximal portion to be left open for drainage and the distal portion of the left open for drainage. A Anselmo drain was placed from volar to dorsal through the collar- button abscess. A soft, sterile dressing was applied. The instrument, sponge, and needle counts were correct after wound closure. POST OPERATIVE PLAN: Continue IV antibiotics through the weekend. Elevation and daily dressing changes. Was there an energy assistant present: No Estimated blood loss (cc): 5
[2018-10-06] MEDS ORDERED: MetroNIDAZOLE 500 MG/100 ML 500 MG/100 ML BAG IVPB SCH (16:00)
[2018-10-06] MEDS: cefTRIAXone 2,000 MG in Water for inj. (sterile) 20 ML 20 ML IVP SCH (17:45)
[2018-10-06] MEDS ORDERED: Cefepime HCl 2,000 MG in Water for inj. (sterile) 20 ML 20 ML IVP SCH (18:00)
[2018-10-06] MEDS: metroNIDAZOLE 500 MG TABLET PO SCH ×2 (18:13→21:05)
[2018-10-06] MEDS ORDERED: Insulin LISPRO 300 UNITS/3 ML VIAL SQ SCH (21:00)
[2018-10-06] MEDS ORDERED: Insulin DETEMIR 100 UNIT/ML X5UNITS SQ SCH (21:00)
[2018-10-06] MEDS: Nicotine 21 MG PATCH.TD24 TD SCH (21:06)
[2018-10-07 02:45] LABS: Basophils % 0.5 %; Eosinophils # 0.1 K/mcL (0.0-0.6); Eosinophils % 1.8 %; Hematocrit 35.8 % (37.5-50.1); Hemoglobin 11.9 g/dL (12.9-16.9); Immature Granulocytes % 0.5 % (0-4); Lymphocytes # 1.5 K/mcL (0.6-4.6); Lymphocytes % 22.7 %; Mean Corpuscular HGB Conc 33.2 g/dL (31.6-35.5); Mean Corpuscular Hemoglobin 31.3 pg (28.0-33.3); Mean Corpuscular Volume 94.2 fL (83.0-100.0); Mean Platelet Volume 9.1 fL (9.4-12.4); Monocytes # 0.6 K/mcL (0.0-1.3); Monocytes % 8.5 %; Neutrophils # 4.3 K/mcL (1.6-8.9); Platelet Count 332 K/mcL (140-400); Red Cell Distribution Width 11.7 % (11.5-14.5)
[2018-10-07 03:03] LABS: BUN/Creatinine Ratio 16 (6-26); Blood Urea Nitrogen 15 mg/dL (6-20); Calcium 8.9 mg/dL (8.6-10.3); Carbon Dioxide 27 mEq/L (23-29); Chloride 98 mEq/L (98-107); Glucose 149 mg/dL (70-105); Magnesium 1.9 mg/dL (1.6-2.6); Osmolality,Calculated 280 (280-300); Potassium 4.3 mEq/L (3.5-5.1); Sodium 133 mEq/L (136-145); eGFR For Non-African Americans > 60 (> 60)
[2018-10-07] MEDS: metroNIDAZOLE 500 MG TABLET PO SCH ×3 (08:34→20:38)
[2018-10-07] MEDS: Gabapentin 400 MG CAPSULE PO SCH ×3 (08:34→20:38)
[2018-10-07] MEDS: Insulin LISPRO 300 UNITS/3 ML VIAL SQ SCH ×3 (08:34→20:38)
--- NOTE | 2018-10-07 11:14 | Orthopedics Progress Note ---
Date of Encounter: 10/07/18 Time of Encounter: 11:12 Subjective Interval history: S: Patient resting in bed comfortably. Pain tolerable O: Afebrile on the vital signs are stable I&D site wounds look good without any purulence Fingertips are sensate at his baseline and well-perfused A: Hand infection, right, s/p multiple I&D P: Continue elevation of the right upper extremity with daily dressing changes. Will pull mary tomorrow. Continue IV antibiotics per the primary team and the infectious disease teams. Objective Vital signs: Vital Signs Temp Pulse Resp BP Pulse Ox 10/07/18 07:12 98.1 F 86 16 115/67 97 10/07/18 03:32 98.6 F 91 15 124/79 95 10/06/18 23:03 99.3 F 86 16 138/75 97 10/06/18 18:27 98.2 F 89 16 150/90 93 10/06/18 15:50 98.3 F 76 15 130/73 98 10/06/18 14:50 98.7 F 79 15 132/80 96 10/06/18 13:50 98.3 F 78 15 126/82 95 10/06/18 13:20 98.1 F 77 14 122/74 95 10/06/18 12:46 82 16 116/66 95 10/06/18 12:36 98.4 F 80 14 115/70 98 10/06/18 12:26 84 18 112/66 95 10/06/18 12:16 80 16 95/55 100 10/06/18 12:06 99.5 F 85 16 92/49 100 10/06/18 11:18 16 93 Intake and Output 10/06/18 10/07/18 10/07/18 23:59 07:59 15:59 Output Total 800 / 805 700 / 700 Balance -800 / -335 -700 / -700 Output: Urine 800 / 800 700 / 700 Other: # Voids 1 Weight 78.6 kg Blood Glucose* 240 144 Patient Weight 10/07/18 23:59 Weight 78.6 kg - Labs CBC & BMP: 10/07/18 00:59 10/07/18 00:59 Labs: Abnormal lab results WBC 11.4 K/mcL (4.3-11.1) H 10/04/18 00:52 RBC 3.80 M/mcL (4.19-5.50) L 10/07/18 00:59 Hgb 11.9 g/dL (12.9-16.9) L 10/07/18 00:59 Hct 35.8 % (37.5-50.1) L 10/07/18 00:59 MPV 9.1 fL (9.4-12.4) L 10/07/18 00:59 PT 14.6 Seconds (9.4-12.1) H 10/04/18 00:52 Sodium 133 mEq/L (136-145) L 10/07/18 00:59 BUN 30 mg/dL (6-20) H 10/04/18 00:52 Glucose 149 mg/dL (70-105) H 10/07/18 00:59 POC Glucose 144 mg/dL (70-99) H 10/07/18 07:09 276 (280-300) L 10/05/18 08:02 Calcium 8.3 mg/dL (8.6-10.3) L 10/05/18 08:02 Vancomycin Trough 11 mcg/mL (5-10) H 10/05/18 11:13 Consult Discharge Plan - Plan Referrals: NONE,PCP [Primary Care Provider] -
--- NOTE | 2018-10-07 14:51 | Internal Med Progress Note ---
Hospitalist Progress Note - Encounter Date of Encounter: 10/07/18 Time of Encounter: 14:48 - Subjective Interval History: right hand pain consitpaiton no chest pain but heartache due to losing his dog no dyspnea, abd pain, nausea, vomiting - Exam Vitals: Temp Pulse Resp BP Pulse Ox 98.6 F 95 17 132/73 94 10/07/18 11:27 10/07/18 11:27 10/07/18 11:27 10/07/18 11:27 10/07/18 11:27 Exam: Gen.: Alert and oriented 3, no acute distress no scleral icterus Heart: Regular in rhythm, no murmurs, rubs, gallops CTABL, no wheezes or rales Musculoskeletal: Right hand has large bulky dressing in place that is clean dry and intact. He has tenderness with active and passive range of motion of fingers no ankle edema alert, oriented, no dysarhtria or gross motor deficits - Assessment and Plan (1) Cellulitis of right hand Current Visit: Yes Status: Acute (2) DVT prophylaxis Current Visit: Yes Status: Acute (3) Diabetes Current Visit: Yes Status: Acute - Summary of Assessment and Plan Summary of Assessment and Plan: Per H&P: """Mr. Beaulieu is a 57 year old male Patient presented to the [facility] with swelling and redness of his right hand. He says that he fell while he was walking his dog, his dog's leash wrapped around his legs while he was coming down a set of stairs, and his feet were pulled out from under him and he fell hitting his head. He says he did lose consciousness at that time, and awoke to his dog licking his face. This episode was 3 days ago. He did go to the [facility], was evaluated including labs and CT scan. Patient says that his workup was normal. During this fall his right hand also landed on a sharp piece of metal. When he woke up he noticed this metal in his hand and he pulled it out. At the [facility], they discussed with the patient possibility of tetanus shot, but since he has had a recent tetanus shot he did not need another one. He was started on clindamycin and sent home. Since that time, the patient says that his right hand has become more swollen, and he has had redness that is stretched to his armpit. He has attempted to see multiple other providers, including the [place] [facility] and multiple urgent cares. Because of long wait times he has left these establishments prior to being evaluated. He eventually went to his PCP at the [facility] who is he says lanced the lesion on the palmar aspect of his right hand and change his antibiotics to Bactrim. He has not started this antibiotic yet however. They advised him to go to the hospital where he needs to see a hand surgeon. He presented to the [facility] but they do not have hand surgery. He was then referred to [facility], Dr. Chisholm of orthopedic surgery was notified and will consult on the patient in the morning. He was started on ceftriaxone prior to transfer. Upon my evaluation, patient is resting comfortably in hospital bed in no acute distress. He says that the pain in his hand has improved, and the redness is also improved. He has a headache which she has had since he fell. He says that he is a pack a day smoker, which is improved from 4 packs per day. He denies history of alcohol use but does smoke marijuana. He denies chest pain, abdominal pain, shortness of breath, diarrhea, constipation, nausea and vomiti ng. He did vomit a few days ago after he hit his head. He also had blurry vision at that time but this is improved. He has a history of diabetes, and has neuropathy in his hands and feet. He has also been told that he has a narrowing in his upper spine which causes pain and numbness as well. He has a history of drop foot on his right leg secondary to an injury many years ago. He uses a walker to ambulate usually. He also may have a new diagnosis of multiple sclerosis, and he has been seeing a doctor for this outpatient. He has a lumbar puncture scheduled for October 24. He has a family history of Hodgkin's lymphoma, heart disease and diabetes on his mother's side of the family. He does not know his father or his medical history. Patient is a full code. """" (1) Cellulitis / abscess of right hand with SIRS - Orthopedics appreciated: s/p I&D 10/04 and 10/06 - Wound and OR cultures: K. oxytoca and C. braakii., ID appreciated: cont ceftriaxone and metronidazole (2) Diabetes increase basal + sliding scale insulin by 20-25% total daily dose to optimize glycemic control (3) Constipation bowel regimen (4) DVT prophylaxis SCDs Lab draw hol tomorrow - Time Spent with Patient Total time spent is greater than 50% in coordination of care (as documented) at patient's floor/unit and/or counseling patient: Internal Medicine: Result - Labs CBC & Chem 7: 10/07/18 00:59 10/07/18 00:59 Labs: Short CBC 10/07/18 Range/Units 00:59 WBC 6.6 (4.3-11.1) K/mcL Hgb 11.9 L (12.9-16.9) g/dL Hct 35.8 L (37.5-50.1) % Plt Count 332 (140-400) K/mcL Neutrophils # 4.3 (1.6-8.9) K/mcL BMP 10/07/18 00:59 Sodium 133 L Potassium 4.3 Chloride 98 Carbon Dioxide 27 BUN 15 Creatinine 0.93 Glucose 149 H Calcium 8.9 - ABG Interpretation ABG results: PT/INR, D-dimer PT 14.6 Seconds (9.4-12.1) H 10/04/18 00:52 Consult Discharge Plan - Plan Referrals: NONE,PCP [Primary Care Provider] - (3) Diabetes Qualifiers: Diabetes mellitus type: type 2 Diabetes mellitus snf insulin use: without emt intermediate use Diabetes mellitus complication status: with hyperglycemia Qualified Code(s): E11.65 - Type 2 diabetes mellitus with hyperglycemia
[2018-10-07] MEDS: cefTRIAXone 2,000 MG in Water for inj. (sterile) 20 ML 20 ML IVP SCH (15:34)
[2018-10-07] MEDS: OXYCODONE Oral CONC 10 MG/0.5 ML ORAL.SYG SL PRN (18:33)
[2018-10-07] MEDS: Sennosides/Docusate Sodium TABLET PO SCH (20:38)
[2018-10-07] MEDS: Insulin DETEMIR 100 UNIT/ML X5UNITS SQ SCH (20:38)
[2018-10-07] MEDS: Nicotine 21 MG PATCH.TD24 TD SCH (21:18)
--- NOTE | 2018-10-08 08:30 | Orthopedics Progress Note ---
Date of Encounter: 10/08/18 Time of Encounter: 08:29 Subjective Interval history: S: Patient resting in bed comfortably. Pain tolerable O: Afebrile on the vital signs are stable I&D site wounds look good without any purulence Fingertips are sensate at his baseline and well-perfused A: Hand infection, right, s/p multiple I&D P: Continue elevation of the right upper extremity with daily dressing changes. Anselmo pulled today Continue IV antibiotics per the primary team and the infectious disease teams. Objective Vital signs: Vital Signs Temp Pulse Resp BP Pulse Ox 10/08/18 03:41 98.2 F 83 16 124/77 93 10/07/18 19:13 98.9 F 95 16 115/67 96 10/07/18 15:09 98.5 F 78 17 108/75 95 10/07/18 11:27 98.6 F 95 17 132/73 94 Intake and Output 10/07/18 10/08/18 10/08/18 23:59 07:59 15:59 Intake Total 240 / 480 Output Total 0 / 0 Balance 240 / -1070 0 / 0 Intake: Oral 240 / 480 Output: Urine 0 / 0 Other: # Voids 1 Weight 77.9 kg Blood Glucose* 258 Patient Weight 10/08/18 23:59 Weight 77.9 kg - Labs CBC & BMP: 10/07/18 00:59 10/07/18 00:59 Labs: Abnormal lab results WBC 11.4 K/mcL (4.3-11.1) H 10/04/18 00:52 RBC 3.80 M/mcL (4.19-5.50) L 10/07/18 00:59 Hgb 11.9 g/dL (12.9-16.9) L 10/07/18 00:59 Hct 35.8 % (37.5-50.1) L 10/07/18 00:59 MPV 9.1 fL (9.4-12.4) L 10/07/18 00:59 PT 14.6 Seconds (9.4-12.1) H 10/04/18 00:52 Sodium 133 mEq/L (136-145) L 10/07/18 00:59 BUN 30 mg/dL (6-20) H 10/04/18 00:52 Glucose 149 mg/dL (70-105) H 10/07/18 00:59 POC Glucose 258 mg/dL (70-99) H 10/07/18 20:33 276 (280-300) L 10/05/18 08:02 Calcium 8.3 mg/dL (8.6-10.3) L 10/05/18 08:02 Vancomycin Trough 4 mcg/mL (5-10) L 10/07/18 13:16 Consult Discharge Plan - Plan Referrals: NONE,PCP [Primary Care Provider] -
[2018-10-08] MEDS: Insulin LISPRO 300 UNITS/3 ML VIAL SQ SCH ×4 (08:38→22:07)
[2018-10-08] MEDS: metroNIDAZOLE 500 MG TABLET PO SCH ×3 (08:39→22:06)
[2018-10-08] MEDS: Sennosides/Docusate Sodium TABLET PO SCH ×2 (08:39→22:06)
[2018-10-08] MEDS: Gabapentin 400 MG CAPSULE PO SCH ×3 (08:39→22:06)
[2018-10-08] MEDS: OXYCODONE Oral CONC 10 MG/0.5 ML ORAL.SYG SL PRN ×4 (08:40→23:46)
--- NOTE | 2018-10-08 12:59 | Internal Med Progress Note ---
Hospitalist Progress Note - Encounter Date of Encounter: 10/08/18 Time of Encounter: 12:57 - Subjective Interval History: right hand pain congestion, cough with some phlegm no chest pain but heartache due to losing his dog no dyspnea, abd pain, nausea, vomiting - Exam Vitals: Temp Pulse Resp BP Pulse Ox 98.4 F 89 17 99/64 93 10/08/18 12:26 10/08/18 12:26 10/08/18 12:26 10/08/18 12:10/08/18 12:26 Exam: Gen.: Alert and oriented 3, no acute distress no scleral icterus Heart: Regular in rhythm, no murmurs, rubs, gallops decreased breath sounds diffusely today, no wheezes or rales Musculoskeletal: Right hand has large bulky dressing in place that is clean dry and intact no ankle edema alert, oriented, no dysarhtria or gross motor deficits - Assessment and Plan (1) Cellulitis of right hand Current Visit: Yes Status: Acute (2) DVT prophylaxis Current Visit: Yes Status: Acute (3) Diabetes Current Visit: Yes Status: Acute - Summary of Assessment and Plan Summary of Assessment and Plan: Per H&P: """Mr. Beaulieu is a 57 year old male Patient presented to the [facility] with swelling and redness of his right hand. He says that he fell while he was walking his dog, his dog's leash wrapped around his legs while he was coming down a set of stairs, and his feet were pulled out from under him and he fell hitting his head. He says he did lose consciousness at that time, and awoke to his dog licking his face. This episode was 3 days ago. He did go to the [facility], was evaluated including labs and CT scan. Patient says that his workup was normal. During this fall his right hand also landed on a sharp piece of metal. When he woke up he noticed this metal in his hand and he pulled it out. At the [facility], they discussed with the patient possibility of tetanus shot, but since he has had a recent tetanus shot he did not need another one. He was started on clindamycin and sent home. Since that time, the patient says that his right hand has become more swollen, and he has had redness that is stretched to his armpit. He has attempted to see multiple other providers, including the [place] [facility] and multiple urgent cares. Because of long wait times he has left these establishments prior to being evaluated. He eventually went to his PCP at the [facility] who is he says lanced the lesion on the palmar aspect of his right hand and change his antibiotics to Bactrim. He has not started this antibiotic yet however. They advised him to go to the hospital where he needs to see a hand surgeon. He presented to the [facility] but they do not have hand surgery. He was then referred to [facility], Dr. Chisholm of orthopedic surgery was notified and will consult on the patient in the morning. He was started on ceftriaxone prior to transfer. Upon my evaluation, patient is resting comfortably in hospital bed in no acute d istress. He says that the pain in his hand has improved, and the redness is also improved. He has a headache which she has had since he fell. He says that he is a pack a day smoker, which is improved from 4 packs per day. He denies history of alcohol use but does smoke marijuana. He denies chest pain, abdominal pain, shortness of breath, diarrhea, constipation, nausea and vomiting. He did vomit a few days ago after he hit his head. He also had blurry vision at that time but this is improved. He has a history of diabetes, and has neuropathy in his hands and feet. He has also been told that he has a narrowing in his upper spine which causes pain and numbness as well. He has a history of drop foot on his right leg secondary to an injury many years ago. He uses a walker to ambulate usually. He also may have a new diagnosis of multiple sclerosis, and he has been seeing a doctor for this outpatient. He has a lumbar puncture scheduled for October 24. He has a family history of Hodgkin's lymphoma, heart disease and diabetes on his mother's side of the family. He does not know his father or his medical history. Patient is a full code. """" (1) SSTI / abscess of right hand with SIRS - Orthopedics appreciated: s/p I&D 10/04 and 10/06 - Wound and OR cultures: K. oxytoca and C. braakii., ID appreciated: cont ceftriaxone and metronidazole - Ortho appreciated: Continue elevation of the right upper extremity with daily dressing changes. (2) Diabetes - basal + sliding scale insulin increased by by 20% of total daily dose on 10/07 to optimize glycemic control in the setting of hand threatening infection - FS glucose = 133 this afternoon - Continue same dose, check 0200 glucose level to ensure no hypoglycemia - closely monitor (3) Constipation bowel regimen (4) COPD/congestion - prn duonebs and antitussives (4) DVT prophylaxis SCDs - Time Spent with Patient Total time spent is greater than 50% in coordination of care (as documented) at patient's floor/unit and/or counseling patient: Internal Medicine: Result - Labs CBC & Chem 7: 10/07/18 00:59 10/07/18 00:59 - ABG Interpretation ABG results: PT/INR, D-dimer PT 14.6 Seconds (9.4-12.1) H 10/04/18 00:52 Consult Discharge Plan - Plan Referrals: NONE,PCP [Primary Care Provider] - (3) Diabetes Qualifiers: Diabetes mellitus type: type 2 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
[2018-10-08] MEDS ORDERED: Albuterol 2.5 MG/3 ML NEBULIZER IH PRN (14:07)
[2018-10-08] MEDS ORDERED: GuaiFENesin Liq 200 MG/10 ML UDC PO PRN (14:09)
[2018-10-08] MEDS: cefTRIAXone 2,000 MG in Water for inj. (sterile) 20 ML 20 ML IVP SCH (14:59)
[2018-10-08] MEDS: Insulin DETEMIR 100 UNIT/ML X5UNITS SQ SCH (22:06)
[2018-10-08] MEDS: Nicotine 21 MG PATCH.TD24 TD SCH (22:20)
[2018-10-08] MEDS ORDERED: Ketorolac 15 MG/ML VIAL IVP ONE ×2 (22:41→22:55)
[2018-10-09 04:31] LABS: Hematocrit 36.4 % (37.5-50.1); Mean Corpuscular Hemoglobin 31.6 pg (28.0-33.3); Mean Corpuscular Volume 95.8 fL (83.0-100.0); Mean Platelet Volume 8.8 fL (9.4-12.4); Platelet Count 371 K/mcL (140-400); Red Cell Distribution Width 11.7 % (11.5-14.5)
[2018-10-09 04:47] LABS: BUN/Creatinine Ratio 27 (6-26); Blood Urea Nitrogen 28 mg/dL (6-20); Calcium 9.5 mg/dL (8.6-10.3); Carbon Dioxide 33 mEq/L (23-29); Chloride 95 mEq/L (98-107); Glucose 205 mg/dL (70-105); Osmolality,Calculated 289 (280-300); Potassium 4.3 mEq/L (3.5-5.1); Sodium 134 mEq/L (136-145); eGFR For Non-African Americans > 60 (> 60)
[2018-10-09] MEDS: OXYCODONE Oral CONC 10 MG/0.5 ML ORAL.SYG SL PRN ×3 (06:50→21:20)
--- NOTE | 2018-10-09 08:06 | Orthopedics Progress Note ---
Date of Encounter: 10/09/18 Time of Encounter: 08:04 - Assessment and Plan (1) Cellulitis of right hand Current Visit: Yes Status: Acute Subjective Interval history: S: Patient resting in bed comfortably. Expected but improving postoperative pain of the right hand O: Afebrile on the vital signs are stable Right hand evaluated and the swelling is significantly improved since Tuesday. Near complete resolution of the erythema Improved motion of the digits that they are stiff as expected He can grossly flex and extend them. The wound bases are granulating nicely without any purulence The fingertips are all sensate and well-perfused. Cultures show polymicrobial infection A: Right hand infection post I&D 2 P: Antibiotics per infectious disease. The patient has improved clinically and is stable orthopedically No plans for further operative debridement Daily local wound care with wet-to-dry dressings at this point. I did instruct this to the patient who says he will be able to do the changes himself. Follow-up in one week for clinical reevaluation or sooner if needed. Objective Vital signs: Vital Signs Temp Pulse Resp BP Pulse Ox 10/09/18 05:02 97.5 F L 94 16 111/73 90 10/08/18 23:51 98.5 F 90 15 93/53 91 10/08/18 21:07 18 90 10/08/18 19:29 98.7 F 97 16 110/77 92 10/08/18 15:30 98.6 F 93 16 113/70 90 10/08/18 12:26 98.4 F 89 17 99/64 93 10/08/18 08:26 98.3 F 94 17 119/75 92 Intake and Output 10/08/18 10/09/18 10/09/18 23:59 07:59 15:59 Intake Total 680 / 1880 Balance 680 / 1880 Intake: Oral 680 / 1880 Other: Meal Dinner Percent of Meal Consumed 100% # Voids 1 Weight 68 kg Blood Glucose* 199 Patient Weight 10/09/18 23:59 Weight 68 kg - Labs CBC & BMP: 10/09/18 03:49 10/09/18 03:49 Labs: Abnormal lab results WBC 11.4 K/mcL (4.3-11.1) H 10/04/18 00:52 RBC 3.80 M/mcL (4.19-5.50) L 10/09/18 03:49 Hgb 12.0 g/dL (12.9-16.9) L 10/09/18 03:49 Hct 36.4 % (37.5-50.1) L 10/09/18 03:49 MPV 8.8 fL (9.4-12.4) L 10/09/18 03:49 PT 14.6 Seconds (9.4-12.1) H 10/04/18 00:52 Sodium 134 mEq/L (136-145) L 10/09/18 03:49 Chloride 95 mEq/L (98-107) L 10/09/18 03:49 Carbon Dioxide 33 mEq/L (23-29) H 10/09/18 03:49 BUN 28 mg/dL (6-20) H 10/09/18 03:49 27 (6-26) H 10/09/18 03:49 Glucose 205 mg/dL (70-105) H 10/09/18 03:49 POC Glucose 199 mg/dL (70-99) H 10/08/18 20:19 276 (280-300) L 10/05/18 08:02 Calcium 8.3 mg/dL (8.6-10.3) L 10/05/18 08:02 Vancomycin Trough 4 mcg/mL (5-10) L 10/07/18 13:16 Consult Discharge Plan - Plan Referrals: NONE,PCP [Primary Care Provider] -
[2018-10-09] MEDS: Sennosides/Docusate Sodium TABLET PO SCH ×2 (08:40→21:13)
[2018-10-09] MEDS: Gabapentin 400 MG CAPSULE PO SCH ×3 (08:40→21:12)
[2018-10-09] MEDS: metroNIDAZOLE 500 MG TABLET PO SCH ×3 (08:40→21:13)
[2018-10-09] MEDS: Insulin LISPRO 300 UNITS/3 ML VIAL SQ SCH ×4 (08:41→21:14)
--- NOTE | 2018-10-09 13:29 | Infectious Disease Progress No ---
ID Progress Note Date of Encounter: 10/09/18 Time of Encounter: 13:27 - Subjective Subjective: Patient seen and examined. No acute events noted overnight. Patient is a little flustered and somewhat angry as he had MRSA and he wants to know where he got his MRSA from. Denies any headache no chest pain no shortness of breath no nausea no vomiting or diarrhea and no urinary symptoms Vital signs noted Labs reviewed Cultures noted - Objective CBC & Chem 7: 10/09/18 03:49 10/09/18 03:49 - Exam Vitals: Temp Pulse Resp BP Pulse Ox 98.2 F 82 18 117/78 93 10/09/18 12:25 10/09/18 12:25 10/09/18 12:25 10/09/18 12:25 10/09/18 12:25 Exam: GENERAL: Comfortable. Laying in bed NAD HEENT: EREN, EOMI LUNGS: Chest expanding symmetrically, diminished breath sounds at the bases some fine expiratory wheezing CV: RRR, S1 S2 ABDOMEN: Soft, nontender, + bowel sounds EXT: Adequate perfusion. No edema, right hand surgically wrapped NEURO: A&OX3; no focal deficit - Assessment and Plan (1) Sepsis Current Visit: Yes Status: Acute The patient had two SIRS criteria on admission. Likely secondary to right hand cellulitis and abscess. Improved. WBC normal. Afebrile. No tachycardia or tachypnea. Blood cultures drawn 10/04/18 are NGTD x 2 sets. Qualifiers: Sepsis type: sepsis due to unspecified organism Qualified Code(s): A41.9 - Sepsis, unspecified organism SNOMED Code(s): 60724015 (2) Abscess of right hand Current Visit: Yes Status: Acute Location: Right hand. Causative organism: K. oxytoca and C. braakii. Morganella Morgagni R Augmentin, Unasyn and imipenem, Enterococcus faecalis ampicillin sensitive, MRSA S: Bactrim , doxycycline Secondary to puncture wound after a fall. Failed outpatient oral antibiotics (Clindamycin). Tetanus vaccine UTD per patient report. CT hand revealed a large rim-enhancing fluid collection centered along the ulnar aspect of the hand along the length of the fifth metacarpal and extending along the dorsal aspect of the fifth MCP joint which contained a large amount of gas and is consistent with abscess. This extends to the volar skin surface and measures 1.5 x 3 x 4.8 cm. A second small circumscribed collection dorsal to the fourth metacarpal head is also present compatible with a second small abscess. Status post I&D by Dr. Collado 10/04/2018; Intra-Op purulence, necrotic tissue was noted Pre-op swab cultures and intra-op cultures positive as above. Currently on Vanc, cefepime, and flagyl. SNOMED Code(s): 47917197003384992 (3) Cellulitis of right hand Current Visit: Yes Status: Acute Location: Right hand. Causative organism: K. oxytoca and C. braakii. Secondary to puncture injury. Currently on Vanc, cefepime, and flagyl. SNOMED Code(s): 25588745 (4) Fall Current Visit: Yes Status: Acute With a wound on the right hand and a wound in the back of his head. Qualifiers: Encounter type: subsequent encounter Qualified Code(s): W19.XXXD - Unspecified fall, subsequent encounter SNOMED Code(s): 2408509, 703339539 (5) PTSD (post-traumatic stress disorder) Current Visit: Yes Status: Acute SNOMED Code(s): 87666143 (6) Tobacco abuse Current Visit: Yes Status: Acute Patient smokes 3-4 packs a day. Declined nicotine patch. SNOMED Code(s): 831057197 (7) Allergy to multiple antibiotics Current Visit: Yes Status: Acute Allergy to penicillin. Patient told me when his very young/a young child he had anaphylaxis. Tolerating cefepime just fine. SNOMED Code(s): 903699837207363 (8) Diabetes Current Visit: Yes Status: Acute Recommend aggressive glucose monitoring and control to promote wound healing and prevent re-infection. Qualifiers: Diabetes mellitus type: type 2 Diabetes mellitus mcfp insulin use: without mcfp use Diabetes mellitus complication status: with hyperglycemia Qualified Code(s): E11.65 - Type 2 diabetes mellitus with hyperglycemia SNOMED Code(s): 57149358 - Recommendations Recommendations: Continue vancomycin Continue ceftriaxone Continue Flagyl Duration of treatment depends on the clinical picture; need to discuss with the orthopedic team Might be difficult to find an oral antibiotic that would cover all the following organisms. Especially with the fact that the patient has a penicillin allergy. We might have to do IV antibiotics. Monitor labs and for drug toxicity Goal vancomycin trough 10-15 We will need to check weekly CBC, BMP, ESR, CRP and vancomycin trough Patient will need a PICC line placement Patient will need to follow-up with us in clinic in 2 weeks Consult Discharge Plan - Plan Referrals: NONE,PCP [Primary Care Provider] -
[2018-10-09] MEDS: cefTRIAXone 2,000 MG in Water for inj. (sterile) 20 ML 20 ML IVP SCH (16:02)
--- NOTE | 2018-10-09 16:20 | Internal Med Progress Note ---
Hospitalist Progress Note - Encounter Date of Encounter: 10/09/18 Time of Encounter: 12:50 - Subjective Interval History: No acute event overnight. Resting comfortably on bed slight pain and hand. Denies fever chills vomiting headache chest pain short of breath abdominal pain diarrhea - Exam Vitals: Temp Pulse Resp BP Pulse Ox 98.2 F 82 18 117/78 93 10/09/18 12:25 10/09/18 12:25 10/09/18 12:25 10/09/18 12:25 10/09/18 12:25 Exam: Gen.: Alert and oriented 3, no acute distress Heart: Regular in rhythm, no murmurs, rubs, gallops Lung decreased breath sounds diffusely today, no wheezes or rales Musculoskeletal: Right hand has dressing in place that is clean dry and intact. Grossly flex and extend digits of affected hand. No visible erythema or purulence. Fingertips with preserved sensation Neuro alert, oriented, no dysarhtria or gross motor deficits - Assessment and Plan (1) Cellulitis of right hand Current Visit: Yes Status: Acute Assessment and Plan: Postop day 3 status post initial surgical debridement of right hand cellulitis/abscess. Initial wound cultures are positive for Klebsiella oxytoca and Citrobacter braakii, but eventually grew MRSA. Therefore restarted vancomycin today along with Rocephin and metronidazole. Updated ID team for further plan about continuation of antibiotic. Will discharge patient after getting recommendations from ID team. Patient may need IV antibiotic therefore will require PICC line. ID team will also discuss with ortho to make discharge plan. Possible discharge tomorrow after getting clearance from ortho and ID. (2) Diabetes Current Visit: Yes Status: Acute Assessment and Plan: Accu-Chek, SSI, diabetic diet. Will increase insulin 20 unit daily at bedtime as high blood glucose level. (3) DVT prophylaxis Current Visit: Yes Status: Acute Assessment and Plan: EPCDs - Time Spent with Patient Total time spent is greater than 50% in coordination of care (as documented) at patient's floor/unit and/or counseling patient: Internal Medicine: Result - Labs CBC & Chem 7: 10/09/18 03:49 10/09/18 03:49 Labs: Short CBC 10/09/18 Range/Units 03:49 WBC 5.8 (4.3-11.1) K/mcL Hgb 12.0 L (12.9-16.9) g/dL Hct 36.4 L (37.5-50.1) % Plt Count 371 (140-400) K/mcL BMP 10/09/18 03:49 Sodium 134 L Potassium 4.3 Chloride 95 L Carbon Dioxide 33 H BUN 28 H Creatinine 1.05 Glucose 205 H Calcium 9.5 - ABG Interpretation ABG results: PT/INR, D-dimer PT 14.6 Seconds (9.4-12.1) H 10/04/18 00:52 Consult Discharge Plan - Plan Referrals: NONE,PCP [Primary Care Provider] - (2) Diabetes Qualifiers: Diabetes mellitus type: type 2 Diabetes mellitus oysterman insulin use: without snf use Diabetes mellitus complication status: with hyperglycemia Qualified Code(s): E11.65 - Type 2 diabetes mellitus with hyperglycemia
[2018-10-09] MEDS: Insulin DETEMIR 100 UNIT/ML X5UNITS SQ SCH (21:12)
[2018-10-09] MEDS: Nicotine 21 MG PATCH.TD24 TD SCH (21:13)
[2018-10-10] MEDS: OXYCODONE Oral CONC 10 MG/0.5 ML ORAL.SYG SL PRN ×3 (01:35→20:45)
--- NOTE | 2018-10-10 08:26 | Discharge Summary ---
- NOTES TO OUTPATIENT PROVIDER Notes to Outpatient Provider: f/u with PCP in 3-5 days-check weekly CBC, BMP, ESR, CRP and vancomycin trough. Follow final culture report. Follow with ID in 2 weeks. Follow with ortho 1 week-Daily local wound care with wet-to-dry dressings at this point. Home health care-PICC line care and IV antibiotic Orders not resulted at time of discharge: Pending orders 10/04/18 18:05 AFB Culture, Tissue [TB] Routine AFB Smear [TB] Routine Culture,Anaerobic [RM] Routine Culture,Anaerobic [RM] Routine Fungal Culture [MYC] Routine Fungal Culture [MYC] Routine 10/06/18 11:57 Culture,Anaerobic [RM] Routine Fungal Culture [MYC] Routine Date of Encounter: 10/10/18 Time of Encounter: 08:22 - Discharge Diagnosis (1) Cellulitis of right hand Priority: Primary Status: Acute Assessment and Plan: Postop day 3 status post initial surgical debridement of right hand cellulitis/abscess. Initial wound cultures are positive for Klebsiella oxytoca and Citrobacter braakii, but eventually grew MRSA. Therefore restarted vancomycin today along with Rocephin and metronidazole. Patient is okay to discharge from [id number] appointment in 1 week Okay to discharge from ID specialist on Rocephin, vancomycin, Flagyl for 2 [id number] outpatient. Needs to be seen by ID before running out of antibiotic supply (2) Diabetes Priority: Primary Status: Acute Assessment and Plan: Continue home medicine Qualifiers: Diabetes mellitus type: type 2 Diabetes mellitus mcfp insulin use: without long term acute care registered nurse use Diabetes mellitus complication status: with hyperglycemia Qualified Code(s): E11.65 - Type 2 diabetes mellitus with hyperglycemia (3) Tobacco abuse Priority: Primary Status: Acute Assessment and Plan: nicotine patch ordered (4) Sepsis Priority: Primary Status: Acute Assessment and Plan: Most likely secondary to abscess with cellulitis and right hand. Improved. Qualifiers: Sepsis type: sepsis due to unspecified organism Qualified Code(s): A41.9 - Sepsis, unspecified organism (5) Abscess of right hand Priority: Primary Status: Acute Assessment and Plan: Secondary to puncture wound after a fall. Failed outpatient oral antibiotics (Clindamycin). Tetanus vaccine UTD per patient report. CT hand revealed a large rim-enhancing fluid collection centered along the ulnar aspect of the hand along the length of the fifth metacarpal and extending along the dorsal aspect of the fifth MCP joint which contained a large amount of gas and is consistent with abscess. This extends to the volar skin surface and measures 1.5 x 3 x 4.8 cm. A second small circumscribed collection dorsal to the fourth metacarpal head is also present compatible with a second small abscess. Status post I&D by Dr. Collado 10/04/2018; Intra-Op purulence, necrotic tissue was noted Hospital course: Mr. Beaulieu is a 57 year old male got admitted with right hand cellulitis. Wound culture positive for multiple organisms. Also and ID was consulted. Please see detail in diagnosis section of discharge summary. At the time of discharge patient clinically hemodynamically stable ambulating tolerating oral diet. Pain is well controlled on current medication. Will discharge patient on Percocet 5/325 12 tablets given and further management as per PCP. Follow-up instruction as mentioned. PICC line insertion before discharge Discharge discussed with: patient, nurse, social work Time spent discussing smoking cessation with patient: 3 to 10 minutes - Time Spent with Patient Total time spent providing and/or coordinating discharge services: Time spent: Less than 30 minutes - Discharge Medications Prescriptions: New metroNIDAZOLE [Flagyl] 500 mg PO TID #42 tablet Nicotine Patch [Nicoderm] 21 mg TD Q24H #30 patch.td24 cefTRIAXone [Rocephin] 2,000 mg IVPB Q12HR #14 vial Vancomycin/0.9 % Sod Chloride [Vancomycin 1 G/100Ml-0.9% NaCl] 1 gm IV Q12HR #28 plast..bag Oxycodone HCl/Acetaminophen [Percocet 5-325 mg Tablet] 1 each PO Q8HR PRN 4 Days #12 tablet PRN Reason: Pain Continued Naproxen [Naprosyn] 250 mg PO TID PRN PRN Reason: Pain Insulin Glargine [Lantus] 20 unit SQ BID Gabapentin 800 mg PO TID Dapagliflozin Propanediol [Farxiga] 10 mg PO DAILY Aspirin [Lo-Dose Aspirin EC] 81 mg PO DAILY Albuterol Sulfate [Ventolin Hfa] 2 puff IH QID PRN PRN Reason: Shortness Of Breath Albuterol Neb [Proventil Neb] 2.5 mg IH TID PRN PRN Reason: Shortness Of Breath Acetaminophen [Tylenol] 650 mg PO QID PRN PRN Reason: Pain Tamsulosin HCl [Flomax] 0.4 mg PO HS Amitriptyline HCl 100 mg PO HS Discontinued Clindamycin [Cleocin] 300 mg PO QID Home Medications: Acetaminophen [Tylenol] 650 mg PO QID PRN 10/04/18 [History] Albuterol Neb [Proventil Neb] 2.5 mg IH TID PRN 10/04/18 [History] Albuterol Sulfate [Ventolin Hfa] 2 puff IH QID PRN 10/04/18 [History] Amitriptyline HCl 100 mg PO HS 10/04/18 [History] Aspirin [Lo-Dose Aspirin EC] 81 mg PO DAILY 10/04/18 [History] Dapagliflozin Propanediol [Farxiga] 10 mg PO DAILY 10/04/18 [History] Gabapentin 800 mg PO TID 10/04/18 [History] Insulin Glargine [Lantus] 20 unit SQ BID 10/04/18 [History] Naproxen [Naprosyn] 250 mg PO TID PRN 10/04/18 [History] Tamsulosin HCl [Flomax] 0.4 mg PO HS 10/04/18 [History] Nicotine Patch [Nicoderm] 21 mg TD Q24H #30 patch.td24 10/10/18 [Rx] Oxycodone HCl/Acetaminophen [Percocet 5-325 mg Tablet] 1 each PO Q8HR PRN 4 Days #12 tablet 10/10/18 [Rx] Vancomycin/0.9 % Sod Chloride [Vancomycin 1 G/100Ml-0.9% NaCl] 1 gm IV Q12HR #28 plast..bag 10/10/18 [Rx] cefTRIAXone [Rocephin] 2,000 mg IVPB Q12HR #14 vial 10/10/18 [Rx] metroNIDAZOLE [Flagyl] 500 mg PO TID #42 tablet 10/10/18 [Rx] Allergies/Adverse Reactions: Allergy/AdvReac Type Severity Reaction Status Date / Time Penicillins Allergy Anaphylaxis Verified 10/04/18 10:28 Date of admission: 10/04/18 15:17 Primary care physician: PCP NONE Consults: 10/04/18 00:12 Consult to Orthopedic Surgery [CONS] Routine Consulting Provider: Kavon Chisholm Reason for Consult: Cellulitis right hand, called from [facility] prior to transfer Call Completed: Yes 10/05/18 13:40 Consult to Infectious Diseases [CONS] Routine Consulting Provider: Infectious Disease [place] Reason for Consult: hand cellulitis/abcess Call Completed: Yes - Constitutional Vitals: Temp Pulse Resp BP Pulse Ox 98.9 F 88 16 117/76 94 10/10/18 04:09 10/10/18 04:09 10/10/18 04:09 10/10/18 04:09 10/10/18 04:09 General appearance: Present: cooperative, A&O X 3, pleasant, no acute distress, answers questions appropriately Exam: GENERAL: Comfortable. Laying in bed NAD HEENT: EREN, EOMI LUNGS: Chest expanding symmetrically, diminished breath sounds at the bases some fine expiratory wheezing CV: RRR, S1 S2 ABDOMEN: Soft, nontender, + bowel sounds EXT: Adequate perfusion. No edema, right hand surgically wrapped NEURO: A&OX3; no focal deficit - Patient Status Disposition: Home Health Service Condition: Fair Overall status at discharge: patient is progressing back to baseline - Discharge Instructions Follow Up With: Glenna Maier INFORMATION SECURITY ARCHITECT [Advanced Practice Nurse] - 10/26/18 1:45 pm NONE,PCP [Primary Care Provider] - - Diet and Activity Activity: increase activity as tolerated Diet: diabetic diet, low fat, low cholesterol, low salt diet
[2018-10-10] MEDS ORDERED: Insulin DETEMIR 100 UNIT/ML X5UNITS SQ ONE (08:41)
[2018-10-10] MEDS: metroNIDAZOLE 500 MG TABLET PO SCH ×3 (09:13→20:43)
[2018-10-10] MEDS: Gabapentin 400 MG CAPSULE PO SCH ×3 (09:13→20:43)
[2018-10-10] MEDS: Insulin LISPRO 300 UNITS/3 ML VIAL SQ SCH ×4 (09:13→20:40)
[2018-10-10] MEDS: Sennosides/Docusate Sodium TABLET PO SCH ×2 (09:13→20:43)
--- NOTE | 2018-10-10 11:16 | Infectious Disease Progress No ---
ID Progress Note Date of Encounter: 10/10/18 Time of Encounter: 10:25 - Subjective Subjective: Patient seen and examined. No acute events noted overnight. Per nursing, patient is declining placement of PICC line until he speaks with multiple members of his care team. During my exam today, the patient complains of pain and swelling in the right hand. He denies any fevers or chills or rigors. Denies headache or neck pain. Reports shortness of breath and a dry cough. Denies chest pain. Denies nausea, vomiting, diarrhea. He states he has not had a bowel movement in 3 weeks initially, but then tells me that he did have a bowel movement on the day of admission some not sure how reliable of a historian he is. Denies abdominal pain or urinary complaints. Complains of chronic pain in the right leg. Denies oral thrush or skin rashes. - Objective CBC & Chem 7: 10/11/18 08:46 10/11/18 08:46 - Exam Vitals: Temp Pulse Resp BP Pulse Ox 97.7 F 86 16 116/74 92 10/10/18 08:23 10/10/18 08:23 10/10/18 08:23 10/10/18 08:23 10/10/18 08:23 Exam: Head: Atraumatic, normal inspection, normocephalic. Eye: EOMI, PERRLA, no scleral icterus noted. ENT: Mucous membranes moist. No odontogenic infection noted. Neck: Normal inspection, no meningismus. Respiratory: Clear to auscultation. No rales, respiratory distress, rhonchi, or wheezes noted. Cardiovascular: Regular rate and rhythm, S1 and S2 audible. No murmurs, rubs, or gallops. GI: Soft, nondistended, normal bowel sounds. Extremities:No joint swelling, pedal edema, or tenderness noted. Post-op dressing noted to the right hand. Edema of the exposed fingers noted. Cap refill brisk. Range of motion intact. Neurological: Awake, alert, oriented 3. Moves all extremities 4. Psychiatric: normal affect, normal mood. Appears anxious. Skin: Dry, intact, warm. Normal color. No rashes. - Assessment and Plan (1) Sepsis Status: Acute The patient had two SIRS criteria on admission. Likely secondary to right hand cellulitis and abscess. Improved. WBC normal. Afebrile. No tachycardia or tachypnea. Blood cultures drawn 10/04/18 are negative x 2 sets. Qualifiers: Sepsis type: sepsis due to unspecified organism Qualified Code(s): A41.9 - Sepsis, unspecified organism SNOMED Code(s): 78935260 (2) Abscess of right hand Status: Acute Location: Right hand. Causative organism: K. oxytoca, C. braakii, Morganella Morgagni (R: Augmentin, Unasyn and imipenem), Enterococcus faecalis (ampicillin sensitive), MRSA (S: Bactrim, doxycycline). Secondary to puncture wound after a fall. Failed outpatient oral antibiotics (Clindamycin). Tetanus vaccine UTD per patient report. CT hand revealed a large rim-enhancing fluid collection centered along the ulnar aspect of the hand along the length of the fifth metacarpal and extending along the dorsal aspect of the fifth MCP joint which contained a large amount of gas and is consistent with abscess. This extends to the volar skin surface and measures 1.5 x 3 x 4.8 cm. A second small circumscribed collection dorsal to the fourth metacarpal head is also present compatible with a second small abscess. Status post I&D by Dr. Collado 10/04/2018; Intra-Op purulence, necrotic tissue was noted. Pre-op swab cultures and intra-op cultures positive as above. Status post second look incision, drainage, irrigation, and debridement of the right hand with drainage of collar button abscess 10/06/[address] Collado. Currently on Vanc, Rocephin, and flagyl. SNOMED Code(s): 40188453409308560 (3) Cellulitis of right hand Status: Acute Location: Right hand. Causative organism: Polymicrobial. Secondary to puncture injury. Currently on Vanc, Rocephin, and flagyl. SNOMED Code(s): 27968763 (4) Fall Status: Acute With a wound on the right hand and a wound in the back of his head. Qualifiers: Encounter type: subsequent encounter Qualified Code(s): W19.XXXD - Unspecified fall, subsequent encounter SNOMED Code(s): 7943942, 758152090 (5) PTSD (post-traumatic stress disorder) Status: Acute SNOMED Code(s): 37897838 (6) Tobacco abuse Status: Acute Patient smokes 3-4 packs a day. Declined nicotine patch. SNOMED Code(s): 623495748 (7) Allergy to multiple antibiotics Status: Acute Allergy to penicillin. Patient told me when his very young/a young child he had anaphylaxis. Tolerating cefepime and Rocephin just fine. SNOMED Code(s): 637382194702970 (8) Diabetes Status: Acute Recommend aggressive glucose monitoring and control to promote wound healing and prevent re-infection. Qualifiers: Diabetes mellitus type: type 2 Diabetes mellitus penitentiary insulin use: without rn long term care use Diabetes mellitus complication status: with hyperglycemia Qualified Code(s): E11.65 - Type 2 diabetes mellitus with hyperglycemia SNOMED Code(s): 32949620 (9) Constipation Status: Acute No bowel movement documented since admission. Bowel regimen per the primary team. Qualifiers: Constipation type: unspecified constipation type Qualified Code(s): K59.00 - Constipation, unspecified SNOMED Code(s): 49686164 - Recommendations Recommendations: Wound care and activity per the ortho team. Continue vancomycin IV. Pharmacy to dose. Goal trough approximately 15. Continue Rocephin 2 grams IV daily. Continue flagyl 500mg by mouth 3 times a day. Continue until and anaerobic cultures finalize. Duration of treatment depends on the clinical picture. Will likely need 2-4 weeks of IV antibiotics. Due to the patient's penicillin allergy, we will need to use IV vancomycin to cover for the enterococcus. Monitor renal function and dose-adjust antibiotics. Consult vascular access team for PICC line placement prior to discharge. The patient is refusing placement of his PICC line until he talks to the server administrator on-call. Will need weekly CBC, BUN/creatinine, ESR, CRP, and Vanco trough. We will need weekly PICC line care per protocol. Follow up with ID 10/26/18 at 1345. Consult Discharge Plan - Plan Instructions: Cellulitis (GEN) Referrals: Glenna Maier CNP [Advanced Practice Nurse] - 10/26/18 1:45 pm Henry Tate MD [Partnered Physician] - 10/18/18 1:30 pm Prescriptions: metroNIDAZOLE [Flagyl] 500 mg PO TID #42 tablet Nicotine Patch [Nicoderm] 21 mg TD Q24H #30 patch.td24 Oxycodone HCl/Acetaminophen [Percocet 5-325 mg Tablet] 1 each PO Q8HR PRN 4 Days #12 tablet PRN Reason: Pain cefTRIAXone [Rocephin] 2,000 mg IVPB Q12HR #14 vial Vancomycin/0.9 % Sod Chloride [Vancomycin 1 G/100Ml-0.9% NaCl] 1 gm IV Q12HR #28 plast..bag - Attending Attestation I have personally performed a face to face evaluation on this patient. I have reviewed and agree with the care plan. History and Exam by me shows: Assessment and Plan: 1. Sepsis 2. Abscess of the R hand; Cx + K oxytoca and Citrobacter 3. PTSD 4. Tobacco abuse Recommendations Continue vancomycin Continue ceftriaxone Continue Flagyl Duration of treatment depends on the clinical picture; need to discuss with the orthopedic team Might be difficult to find an oral antibiotic that would cover all the following organisms. Especially with the fact that the patient has a penicillin allergy. We might have to do IV antibiotics. Monitor labs and for drug toxicity Goal vancomycin trough 10-15 We will need to check weekly CBC, BMP, ESR, CRP and vancomycin trough Patient will need a PICC line placement Patient will need to follow-up with us in clinic in 2 weeks
--- NOTE | 2018-10-10 11:26 | Physician Discharge Referral ---
Home Health/Hosp Referral Info Transfer to: Home Health - Diagnosis (1) Cellulitis of right hand Priority: Primary Status: Acute (2) Diabetes Priority: Secondary Status: Acute (3) Tobacco abuse Priority: Primary Status: Acute (4) Sepsis Priority: Primary Status: Acute (5) Abscess of right hand Priority: Primary Status: Acute - Respiratory Orders Smoking Cessation: Smoking cessation has been advised. For more information, call the [place] Tobacco Quit Line at 1-793-WNOD-NOW. - Services Needed Following services are medically necessary services: Nursing, Home Infusion Other Treatments: Cleanse wound with warm soapy water and rinse with clean water. Place wet to dry dressing in both the volar and dorsal wounds. Re-wrap with gauze and an edilma wrap - Transfer Medications Prescriptions: metroNIDAZOLE [Flagyl] 500 mg PO TID #42 tablet Nicotine Patch [Nicoderm] 21 mg TD Q24H #30 patch.td24 Oxycodone HCl/Acetaminophen [Percocet 5-325 mg Tablet] 1 each PO Q8HR PRN 4 Days #12 tablet PRN Reason: Pain cefTRIAXone [Rocephin] 2,000 mg IVPB Q12HR #14 vial Vancomycin/0.9 % Sod Chloride [Vancomycin 1 G/100Ml-0.9% NaCl] 1 gm IV Q12HR #28 plast..bag Home Medications: Acetaminophen [Tylenol] 650 mg PO QID PRN 10/04/18 [History] Albuterol Neb [Proventil Neb] 2.5 mg IH TID PRN 10/04/18 [History] Albuterol Sulfate [Ventolin Hfa] 2 puff IH QID PRN 10/04/18 [History] Amitriptyline HCl 100 mg PO HS 10/04/18 [History] Aspirin [Lo-Dose Aspirin EC] 81 mg PO DAILY 10/04/18 [History] Dapagliflozin Propanediol [Farxiga] 10 mg PO DAILY 10/04/18 [History] Gabapentin 800 mg PO TID 10/04/18 [History] Insulin Glargine [Lantus] 20 unit SQ BID 10/04/18 [History] Naproxen [Naprosyn] 250 mg PO TID PRN 10/04/18 [History] Tamsulosin HCl [Flomax] 0.4 mg PO HS 10/04/18 [History] Nicotine Patch [Nicoderm] 21 mg TD Q24H #30 patch.td24 10/10/18 [Rx] Oxycodone HCl/Acetaminophen [Percocet 5-325 mg Tablet] 1 each PO Q8HR PRN 4 Days #12 tablet 10/10/18 [Rx] Vancomycin/0.9 % Sod Chloride [Vancomycin 1 G/100Ml-0.9% NaCl] 1 gm IV Q12HR #28 plast..bag 10/10/18 [Rx] cefTRIAXone [Rocephin] 2,000 mg IVPB Q12HR #14 vial 10/10/18 [Rx] metroNIDAZOLE [Flagyl] 500 mg PO TID #42 tablet 10/10/18 [Rx] Allergies/Adverse Reactions: Allergy/AdvReac Type Severity Reaction Status Date / Time Penicillins Allergy Anaphylaxis Verified 10/04/18 10:28 Certification: Further, I certify that my clinical findings support that this patient is homebound (i.e. absences from home require considerable and taxing effort and are for medical reasons or restoration services or infrequently or short duration when for other reasons) because: Homebound Reason: Patient requires assistance of a person or device to safely leave home Attestation: My signature below is to certify that this patient is under my care and that I, or nurse practitioner, or a physician's teachers' assistant working with me, has a [id number] encounter with this patient.
[2018-10-10] MEDS ORDERED: Lidocaine -MPF 1% 5 ML AMPUL INFILT ONE (14:12)
[2018-10-10] MEDS: cefTRIAXone 2,000 MG in Water for inj. (sterile) 20 ML 20 ML IVP SCH (17:17)
--- NOTE | 2018-10-10 18:03 | Event Note ---
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 process worker is working on a referral therefore possible discharge tomorrow.
[2018-10-10] MEDS: Insulin DETEMIR 100 UNIT/ML X5UNITS SQ SCH (20:39)
[2018-10-10] MEDS: Nicotine 21 MG PATCH.TD24 TD SCH (20:44)
--- NOTE | 2018-10-11 08:40 | Orthopedics Progress Note ---
Date of Encounter: 10/11/18 Time of Encounter: 07:00 - Assessment and Plan (1) Cellulitis of right hand Current Visit: Yes Status: Acute Subjective Interval history: S: Patient resting in bed comfortably. Expected but improving postoperative pain of the right hand O: Afebrile on the vital signs are stable Right hand evaluated and the swelling is significantly improved Improved motion of the digits that they are stiff as expected He can grossly flex and extend them. The wound bases are granulating nicely without any purulence The fingertips are all sensate and well-perfused. Cultures show polymicrobial infection A: Right hand infection post I&D 2 P: Antibiotics per infectious disease. The patient has improved clinically and is stable orthopedically No plans for further operative debridement Daily local wound care with wet-to-dry dressings at this point. Follow-up in one week for clinical reevaluation or sooner if needed. Objective Vital signs: Vital Signs Temp Pulse Resp BP Pulse Ox 10/11/18 06:46 97.6 F 81 16 138/82 93 10/11/18 02:00 98.4 F 90 16 112/68 96 10/10/18 20:29 98.6 F 94 16 101/68 94 10/10/18 11:18 98.7 F 64 16 106/69 98 Intake and Output 10/10/18 10/11/18 10/11/18 23:59 07:59 15:59 Intake Total 510 / 1240 Output Total 0 / 350 Balance 510 / 890 Intake: IV Fluids 270 / 520 Rocephin 2,000 MG In Water for inj. (sterile) 20 ML @ 600 mls/ hr IVP Q24H [facility] Rx#:[id number] Vancocin 1,000 MG In 0.9 % 250 / 500 Sodium Chloride 250 ML @ 167 mls/hr IVPB Q12H [facility] Rx#: [id number] Oral 240 / 720 Output: Urine 0 / 350 Other: Meal Dinner Percent of Meal Consumed 80% # Voids 1 1 Blood Glucose* 187 219 - Labs CBC & BMP: 10/09/18 03:49 10/09/18 03:49 Labs: Abnormal lab results WBC 11.4 K/mcL (4.3-11.1) H 10/04/18 00:52 RBC 3.80 M/mcL (4.19-5.50) L 10/09/18 03:49 Hgb 12.0 g/dL (12.9-16.9) L 10/09/18 03:49 Hct 36.4 % (37.5-50.1) L 10/09/18 03:49 MPV 8.8 fL (9.4-12.4) L 10/09/18 03:49 PT 14.6 Seconds (9.4-12.1) H 10/04/18 00:52 Sodium 134 mEq/L (136-145) L 10/09/18 03:49 Chloride 95 mEq/L (98-107) L 10/09/18 03:49 Carbon Dioxide 33 mEq/L (23-29) H 10/09/18 03:49 BUN 28 mg/dL (6-20) H 10/09/18 03:49 27 (6-26) H 10/09/18 03:49 Glucose 205 mg/dL (70-105) H 10/09/18 03:49 POC Glucose 219 mg/dL (70-99) H 10/11/18 07:53 276 (280-300) L 10/05/18 08:02 Calcium 8.3 mg/dL (8.6-10.3) L 10/05/18 08:02 Vancomycin Trough 12 mcg/mL (5-10) H 10/10/18 22:30 Consult Discharge Plan - Plan Referrals: Glenna Maier, CUST[facility] MILLER [Advanced Practice Nurse] - 10/26/18 1:45 pm NONE,PCP [Primary Care Provider] - Prescriptions: metroNIDAZOLE [Flagyl] 500 mg PO TID #42 tablet Nicotine Patch [Nicoderm] 21 mg TD Q24H #30 patch.td24 Oxycodone HCl/Acetaminophen [Percocet 5-325 mg Tablet] 1 each PO Q8HR PRN 4 Days #12 tablet PRN Reason: Pain cefTRIAXone [Rocephin] 2,000 mg IVPB Q12HR #14 vial Vancomycin/0.9 % Sod Chloride [Vancomycin 1 G/100Ml-0.9% NaCl] 1 gm IV Q12HR #28 plast..bag
[2018-10-11 08:59] LABS: Basophils # 0.1 K/mcL (0.0-0.2); Basophils % 1.2 %; Eosinophils # 0.1 K/mcL (0.0-0.6); Eosinophils % 2.8 %; Hematocrit 39.1 % (37.5-50.1); Hemoglobin 12.9 g/dL (12.9-16.9); Immature Granulocytes % 0.6 % (0-4); Lymphocytes # 1.4 K/mcL (0.6-4.6); Lymphocytes % 28.6 %; Mean Corpuscular Hemoglobin 31.2 pg (28.0-33.3); Mean Corpuscular Volume 94.7 fL (83.0-100.0); Mean Platelet Volume 8.5 fL (9.4-12.4); Monocytes # 0.5 K/mcL (0.0-1.3); Monocytes % 9.3 %; Neutrophils # 2.9 K/mcL (1.6-8.9); Platelet Count 377 K/mcL (140-400); Red Blood Count 4.13 M/mcL (4.19-5.50); Red Cell Distribution Width 11.7 % (11.5-14.5); Segmented Neutrophils % 57.5 %
[2018-10-11 09:17] LABS: BUN/Creatinine Ratio 21 (6-26); Blood Urea Nitrogen 15 mg/dL (6-20); C-Reactive Protein 27 mg/L (Less than 10); Carbon Dioxide 29 mEq/L (23-29); Chloride 99 mEq/L (98-107); Glucose 263 mg/dL (70-105); Osmolality,Calculated 288 (280-300); Potassium 4.4 mEq/L (3.5-5.1); Sodium 134 mEq/L (136-145); eGFR For Non-African Americans > 60 (> 60)
[2018-10-11] MEDS: Sennosides/Docusate Sodium TABLET PO SCH (09:40)
[2018-10-11] MEDS: Gabapentin 400 MG CAPSULE PO SCH ×2 (09:40→14:55)
[2018-10-11] MEDS: metroNIDAZOLE 500 MG TABLET PO SCH ×2 (09:40→14:55)
[2018-10-11] MEDS: Insulin LISPRO 300 UNITS/3 ML VIAL SQ SCH ×2 (09:41→14:55)
--- NOTE | 2018-10-11 09:57 | Infectious Disease Progress No ---
ID Progress Note Date of Encounter: 10/11/18 Time of Encounter: 09:10 - Subjective Subjective: Patient seen and examined. No acute events noted overnight. During my exam today, the patient complains of pain and swelling in the right hand and multiple other sites that is chronic and at baseline. He denies any fevers or chills or rigors. Denies headache or neck pain. Denies shortness of breath or cough this morning. Denies chest pain. Denies nausea, vomiting, diarrhea. He states he has not had a bowel movement in 2 weeks. Last BM documented was 09/28/18. Denies abdominal pain or urinary complaints. Denies oral thrush or skin rashes. Pending ECF placement. - Objective CBC & Chem 7: 10/11/18 08:46 10/11/18 08:46 - Exam Vitals: Temp Pulse Resp BP Pulse Ox 97.6 F 81 16 138/82 93 10/11/18 06:46 10/11/18 06:46 10/11/18 06:46 10/11/18 06:46 10/11/18 06:46 Exam: Head: Atraumatic, normal inspection, normocephalic. Eye: EOMI, PERRLA, no scleral icterus noted. ENT: Mucous membranes moist. No odontogenic infection noted. Neck: Normal inspection, no meningismus. Respiratory: Clear to auscultation. No rales, respiratory distress, rhonchi, or wheezes noted. Cardiovascular: Regular rate and rhythm, S1 and S2 audible. No murmurs, rubs, or gallops. GI: Soft, nondistended, normal bowel sounds. Extremities:No joint swelling, pedal edema, or tenderness noted. Post-op dressing noted to the right hand. Edema of the exposed fingers noted, but improved. Cap refill brisk. Range of motion intact. Neurological: Awake, alert, oriented 3. Moves all extremities 4. Psychiatric: normal affect, normal mood. Skin: Dry, intact, warm. Normal color. No rashes. - Assessment and Plan (1) Sepsis Status: Acute The patient had two SIRS criteria on admission. Likely secondary to right hand cellulitis and abscess. Improved. WBC normal. Afebrile. No tachycardia or tachypnea. Blood cultures drawn 10/04/18 are negative x 2 sets. Qualifiers: Sepsis type: sepsis due to unspecified organism Qualified Code(s): A41.9 - Sepsis, unspecified organism SNOMED Code(s): 52313218 (2) Abscess of right hand Status: Acute Location: Right hand. Causative organism: K. oxytoca, C. braakii, Morganella Morgagni (R: Augmentin, Unasyn and imipenem), Enterococcus faecalis (ampicillin sensitive), MRSA (S: Bactrim, doxycycline). Secondary to puncture wound after a fall. Failed outpatient oral antibiotics (Clindamycin). Tetanus vaccine UTD per patient report. CT hand revealed a large rim-enhancing fluid collection centered along the ulnar aspect of the hand along the length of the fifth metacarpal and extending along the dorsal aspect of the fifth MCP joint which contained a large amount of gas and is consistent with abscess. This extends to the volar skin surface and measures 1.5 x 3 x 4.8 cm. A second small circumscribed collection dorsal to the fourth metacarpal head is also present compatible with a second small abscess. Status post I&D by Dr. Collado 10/04/2018; Intra-Op purulence, necrotic tissue was noted. Pre-op swab cultures and intra-op cultures positive as above. Status post second look incision, drainage, irrigation, and debridement of the right hand with drainage of collar button abscess 10/06/[address] Collado. Currently on Vanc, Rocephin, and flagyl. SNOMED Code(s): 27213185719550200 (3) Cellulitis of right hand Status: Acute Location: Right hand. Causative organism: Polymicrobial. Secondary to puncture injury. Currently on Vanc, Rocephin, and flagyl. SNOMED Code(s): 53724635 (4) Fall Status: Acute With a wound on the right hand and a wound in the back of his head. Qualifiers: Encounter type: subsequent encounter Qualified Code(s): W19.XXXD - Unspecified fall, subsequent encounter SNOMED Code(s): 2763958, 455397729 (5) PTSD (post-traumatic stress disorder) Status: Acute SNOMED Code(s): 18050157 (6) Tobacco abuse Status: Acute Patient smokes 3-4 packs a day. Declined nicotine patch. SNOMED Code(s): 385071882 (7) Allergy to multiple antibiotics Status: Acute Allergy to penicillin. Patient told me when his very young/a young child he had anaphylaxis. Tolerating cefepime and Rocephin just fine. SNOMED Code(s): 955530164138827 (8) Diabetes Status: Acute Recommend aggressive glucose monitoring and control to promote wound healing and prevent re-infection. Qualifiers: Diabetes mellitus type: type 2 Diabetes mellitus fpc insulin use: without fpc use Diabetes mellitus complication status: with hyperglycemia Qualified Code(s): E11.65 - Type 2 diabetes mellitus with hyperglycemia SNOMED Code(s): 99434064 (9) Constipation Status: Acute No bowel movement documented since admission. Bowel regimen per the primary team. Qualifiers: Constipation type: unspecified constipation type Qualified Code(s): K59.00 - Constipation, unspecified SNOMED Code(s): 14597169 - Recommendations Recommendations: Wound care and activity per the ortho team. Continue vancomycin IV. Pharmacy to dose. Goal trough approximately 15. Continue Rocephin 2 grams IV daily. Continue flagyl 500mg by mouth 3 times a day. Continue until anaerobic cultures finalize. Duration of treatment depends on the clinical picture. Will likely need 2-4 weeks of IV antibiotics. Due to the patient's penicillin allergy, we will need to use IV vancomycin to cover for the enterococcus. Monitor renal function and dose-adjust antibiotics. Will need weekly CBC, BUN/creatinine, ESR, CRP, and Vanco trough. We will need weekly PICC line care per protocol. Follow up with ID 10/26/18 at 1345. Consult Discharge Plan - Plan Instructions: Cellulitis (GEN) Referrals: Glenna Maier CNP [Advanced Practice Nurse] - 10/26/18 1:45 pm Henry Tate MD [Partnered Physician] - 10/18/18 1:30 pm Prescriptions: metroNIDAZOLE [Flagyl] 500 mg PO TID #42 tablet Nicotine Patch [Nicoderm] 21 mg TD Q24H #30 patch.td24 Oxycodone HCl/Acetaminophen [Percocet 5-325 mg Tablet] 1 each PO Q8HR PRN 4 Days #12 tablet PRN Reason: Pain cefTRIAXone [Rocephin] 2,000 mg IVPB Q12HR #14 vial Vancomycin/0.9 % Sod Chloride [Vancomycin 1 G/100Ml-0.9% NaCl] 1 gm IV Q12HR #28 plast..bag - Attending Attestation I have personally performed a face to face evaluation on this patient. I have reviewed and agree with the care plan. History and Exam by me shows: Assessment and Plan: 1. Sepsis 2. Abscess of the R hand; Cx + K oxytoca and Citrobacter, MRSA, AmpS enterococus and Morganella 3. PTSD 4. Tobacco abuse Recommendations: Continue vancomycin IV. Pharmacy to dose. Goal trough approximately 15. Continue Rocephin 2 grams IV daily. Continue flagyl 500mg by mouth 3 times a day. Continue until anaerobic cultures finalize. Duration of treatment depends on the clinical picture. Will likely need 2-4 weeks of IV antibiotics. Due to the patient's penicillin allergy, we will need to use IV vancomycin to cover for the enterococcus. Monitor renal function and dose-adjust antibiotics. Will need weekly CBC, BUN/creatinine, ESR, CRP, and Vanco trough. We will need weekly PICC line care per protocol. Follow up with ID 10/26/18 at 1345.
--- NOTE | 2018-10-11 12:19 | Internal Med Progress Note ---
Hospitalist Progress Note - Encounter Date of Encounter: 10/11/18 Time of Encounter: 17:00 - Subjective Interval History: No acute events overnight - Exam Vitals: Temp Pulse Resp BP Pulse Ox 97.6 F 81 16 138/82 93 10/11/18 06:46 10/11/18 06:46 10/11/18 06:46 10/11/18 06:46 10/11/18 06:46 Exam: GENERAL: Comfortable. Laying in bed NAD HEENT: EREN, EOMI LUNGS: Chest expanding symmetrically, diminished breath sounds at the bases some fine expiratory wheezing CV: RRR, S1 S2 ABDOMEN: Soft, nontender, + bowel sounds EXT: Adequate perfusion. No edema, right hand surgically wrapped NEURO: A&OX3; no focal deficit - Assessment and Plan (1) Cellulitis of right hand Current Visit: Yes Status: Acute Assessment and Plan: Postop day 3 status post initial surgical debridement of right hand cellulitis/abscess. Initial wound cultures are positive for Klebsiella oxytoca and Citrobacter braakii, but eventually grew MRSA. Therefore restarted vancomycin today along with Rocephin and metronidazole. Patient is okay to discharge from [id number] appointment in 1 week Okay to discharge from ID specialist on Rocephin, vancomycin, Flagyl for 2 [id number] outpatient. Needs to be seen by ID before running out of antibiotic supply Seen and okay to discharge to [facility] today (2) Diabetes Current Visit: Yes Status: Acute Assessment and Plan: Continue home medicine (3) Abscess of right hand Current Visit: Yes Status: Acute Assessment and Plan: Secondary to puncture wound after a fall. Failed outpatient oral antibiotics (Clindamycin). Tetanus vaccine UTD per patient report. CT hand revealed a large rim-enhancing fluid collection centered along the ulnar aspect of the hand along the length of the fifth metacarpal and extending along the dorsal aspect of the fifth MCP joint which contained a large amount of gas and is consistent with abscess. This extends to the volar skin surface and measures 1.5 x 3 x 4.8 cm. A second small circumscribed collection dorsal to the fourth metacarpal head is also present compatible with a second small abscess. Status post I&D by Dr. Collado 10/04/2018; Intra-Op purulence, necrotic tissue was noted (4) Sepsis Current Visit: Yes Status: Acute Assessment and Plan: Most likely secondary to abscess with cellulitis and right hand. Improved. (5) Tobacco abuse Current Visit: Yes Status: Acute Assessment and Plan: nicotine patch ordered - Time Spent with Patient Total time spent is greater than 50% in coordination of care (as documented) at patient's floor/unit and/or counseling patient: Internal Medicine: Result - Labs CBC & Chem 7: 10/11/18 08:46 10/11/18 08:46 Labs: Short CBC 10/11/18 Range/Units 08:46 WBC 5.0 (4.3-11.1) K/mcL Hgb 12.9 (12.9-16.9) g/dL Hct 39.1 (37.5-50.1) % Plt Count 377 (140-400) K/mcL Neutrophils # 2.9 (1.6-8.9) K/mcL BMP 10/11/18 08:46 Sodium 134 L Potassium 4.4 Chloride 99 Carbon Dioxide 29 BUN 15 Creatinine 0.72 Glucose 263 H Calcium 9.0 - ABG Interpretation ABG results: PT/INR, D-dimer PT 14.6 Seconds (9.4-12.1) H 10/04/18 00:52 Consult Discharge Plan - Plan Instructions: Cellulitis (GEN) Referrals: Glenna Maier CNP [Advanced Practice Nurse] - 10/26/18 1:45 pm Henry Tate MD [Partnered Physician] - 10/18/18 1:30 pm Prescriptions: metroNIDAZOLE [Flagyl] 500 mg PO TID #42 tablet Nicotine Patch [Nicoderm] 21 mg TD Q24H #30 patch.td24 Oxycodone HCl/Acetaminophen [Percocet 5-325 mg Tablet] 1 each PO Q8HR PRN 4 Days #12 tablet PRN Reason: Pain cefTRIAXone [Rocephin] 2,000 mg IVPB Q12HR #14 vial Vancomycin/0.9 % Sod Chloride [Vancomycin 1 G/100Ml-0.9% NaCl] 1 gm IV Q12HR #28 plast..bag _ (2) Diabetes Qualifiers: Diabetes mellitus type: type 2 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
[2018-10-11 12:36] VITALS: BP 134/82
--- NOTE | 2018-10-11 12:41 | Physician Discharge Referral ---
- Diagnosis (1) Cellulitis of right hand Priority: Primary Status: Acute (2) Diabetes Priority: Primary Status: Acute (3) Abscess of right hand Priority: Primary Status: Acute (4) Sepsis Priority: Primary Status: Acute (5) Tobacco abuse Priority: Primary Status: Acute - Transfer Medications Prescriptions: metroNIDAZOLE [Flagyl] 500 mg PO TID #42 tablet Nicotine Patch [Nicoderm] 21 mg TD Q24H #30 patch.td24 Oxycodone HCl/Acetaminophen [Percocet 5-325 mg Tablet] 1 each PO Q8HR PRN 4 Days #12 tablet PRN Reason: Pain cefTRIAXone [Rocephin] 2,000 mg IVPB Q12HR #14 vial Vancomycin/0.9 % Sod Chloride [Vancomycin 1 G/100Ml-0.9% NaCl] 1 gm IV Q12HR #28 plast..bag Home Medications: Acetaminophen [Tylenol] 650 mg PO QID PRN 10/04/18 [History] Albuterol Neb [Proventil Neb] 2.5 mg IH TID PRN 10/04/18 [History] Albuterol Sulfate [Ventolin Hfa] 2 puff IH QID PRN 10/04/18 [History] Amitriptyline HCl 100 mg PO HS 10/04/18 [History] Aspirin [Lo-Dose Aspirin EC] 81 mg PO DAILY 10/04/18 [History] Dapagliflozin Propanediol [Farxiga] 10 mg PO DAILY 10/04/18 [History] Gabapentin 800 mg PO TID 10/04/18 [History] Insulin Glargine [Lantus] 20 unit SQ BID 10/04/18 [History] Naproxen [Naprosyn] 250 mg PO TID PRN 10/04/18 [History] Tamsulosin HCl [Flomax] 0.4 mg PO HS 10/04/18 [History] Nicotine Patch [Nicoderm] 21 mg TD Q24H #30 patch.td24 10/10/18 [Rx] Oxycodone HCl/Acetaminophen [Percocet 5-325 mg Tablet] 1 each PO Q8HR PRN 4 Days #12 tablet 10/10/18 [Rx] Vancomycin/0.9 % Sod Chloride [Vancomycin 1 G/100Ml-0.9% NaCl] 1 gm IV Q12HR #28 plast..bag 10/10/18 [Rx] cefTRIAXone [Rocephin] 2,000 mg IVPB Q12HR #14 vial 10/10/18 [Rx] metroNIDAZOLE [Flagyl] 500 mg PO TID #42 tablet 10/10/18 [Rx] Allergies/Adverse Reactions: Allergy/AdvReac Type Severity Reaction Status Date / Time Penicillins Allergy Anaphylaxis Verified 10/04/18 10:28 - Respiratory Orders Smoking Cessation: Smoking cessation has been advised. For more information, call the [place] Tobacco Quit Line at 5-629-VUZD-NOW. - Diet Orders Cardiac CERTIFICATION: I certify that the transfer of the above named patient to an Extended Care Facility is necessary for the continuing treatment of the diagnosis listed. The above information is true and accurate reflection of patient's current condition. Confidential - Redisclosure prohibited without a patient's written consent.
[2018-10-11] MEDS: cefTRIAXone 2,000 MG in Water for inj. (sterile) 20 ML 20 ML IVP SCH (14:54)
[2018-10-11] MEDS: OXYCODONE Oral CONC 10 MG/0.5 ML ORAL.SYG SL PRN (17:54)
== END 2018-10-11 18:07 | DRG 854 ==
LOC: 3ANU → SUATTDRO 19:46
PROVIDERS: ADMIT Student in an Organized Health Care Education/Training Program; ATTEND Internal Medicine

== ENCOUNTER 2018-12-01 03:08 | Inpatient (IN) ==
[2018-12-01] MEDS ORDERED: Naloxone 0.4 MG/ML INJ IVP PRN ×2 (08:50→21:01)
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
[2018-12-01] MEDS ORDERED: Isovue-370 500 ML BOTTLE IVP ONE (09:47)
[2018-12-01] MEDS ORDERED: Acetaminophen 325 MG TABLET PO PRN ×2 (09:48→21:01)
[2018-12-01] MEDS ORDERED: Albuterol 2.5 MG/3 ML NEBULIZER IH PRN ×2 (09:48→21:01)
[2018-12-01] MEDS ORDERED: D5% in Water 1,000 ML IVC PRN ×2 (09:49→21:01)
[2018-12-01] MEDS ORDERED: *HR* Dextrose 50 % in Water (Syg) 50 ML SYRINGE IVP PRN ×2 (09:49→21:01)
[2018-12-01] MEDS ORDERED: Dextrose Gel 15 GM/37.5 ML TUBE PO PRN ×4 (09:49→21:01)
[2018-12-01 09:54] LABS: Hematocrit 35.6 % (37.5-50.1); Hemoglobin 11.9 g/dL (12.9-16.9); Mean Corpuscular HGB Conc 33.4 g/dL (31.6-35.5); Mean Corpuscular Hemoglobin 31.3 pg (28.0-33.3); Mean Corpuscular Volume 93.7 fL (83.0-100.0); Mean Platelet Volume 9.6 fL (9.4-12.4); Platelet Count 155 K/mcL (140-400); Red Cell Distribution Width 12.3 % (11.5-14.5); White Blood Count 7.5 K/mcL (4.3-11.1)
[2018-12-01] MEDS ORDERED: Vancomycin 0 MG in 0.9 % Sodium Chloride 250 ML IVPB SCH (10:00)
[2018-12-01 10:12] LABS: BUN/Creatinine Ratio 24 (6-26); Blood Urea Nitrogen 19 mg/dL (6-20); Calcium 8.7 mg/dL (8.6-10.3); Carbon Dioxide 25 mEq/L (23-29); Chloride 102 mEq/L (98-107); Glucose 106 mg/dL (70-105); Osmolality,Calculated 281 (280-300); Sodium 134 mEq/L (136-145); eGFR For African Americans > 60 (> 60); eGFR For Non-African Americans > 60 (> 60)
[2018-12-01 10:28] LABS: Lymphocytes # 1.7 K/mcL (0.6-4.6); Monocytes # 0.5 K/mcL (0.0-1.3); Neutrophils # 5.3 K/mcL (1.6-8.9); Platelet Estimate Normal (Normal)
[2018-12-01] MEDS: Ringers Solution, Lactated 1,000 ML IVC SCH ×2 (11:04→23:43)
[2018-12-01] MEDS: Cefepime HCl 2,000 MG in 0.9 % Sodium Chloride Mini Bag 100 ML IVPB SCH (11:07)
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
[2018-12-01] MEDS: Insulin LISPRO 300 UNITS/3 ML VIAL SQ SCH ×2 (12:49→16:19)
[2018-12-01 12:57] LABS: C-Reactive Protein > 300 mg/L (Less than 10)
[2018-12-01] MEDS ORDERED: MetroNIDAZOLE 500 MG/100 ML 500 MG/100 ML BAG IVPB SCH (16:00)
[2018-12-01] MEDS: Gabapentin 400 MG CAPSULE PO SCH (16:05)
[2018-12-01] MEDS ORDERED: Lidocaine -MPF 2% 2 ML VIAL ONE (16:57)
[2018-12-01] MEDS ORDERED: *HR* FentaNYL (PF) 100 MCG/2 ML VIAL ONE (16:57)
[2018-12-01] MEDS ORDERED: *HR* Midazolam HCl 2 MG/2 ML VIAL ONE (16:58)
[2018-12-01] MEDS ORDERED: *HR* Propofol 200 MG/20 ML VIAL IVP ONE (16:58)
[2018-12-01] MEDS ORDERED: Albuterol 2.5 MG/3 ML NEBULIZER IH ONE (17:08)
[2018-12-01] MEDS ORDERED: Acetaminophen IV 1,000 MG/100 ML INFUS..BTL IVPB ONE (17:09)
--- NOTE | 2018-12-01 17:15 | Anesthesia Evaluation PreOp ---
Date of Encounter: 12/01/18 Time of Encounter: 17:15 - Past History Planned Operation: Incision Drainage Rt UE Cardiac History: Hyperlipidemia Pulmonary History: Asthma, COPD DUMP ATTENDANT History: Denies Any Significant HX Other Medical History: Diabetes Type II, Other (Arthritis) Anesthesia History: No Prior Anesthetic Complications Alcohol Use: occasionally Drug use: marijuana Medications and Allergies Acetaminophen [Tylenol] 650 mg PO QID PRN 10/04/18 [History] Albuterol Neb [Proventil Neb] 2.5 mg IH TID PRN 10/04/18 [History] Albuterol Sulfate [Ventolin Hfa] 2 puff IH QID PRN 10/04/18 [History] Amitriptyline HCl 100 mg PO HS 10/04/18 [History] Aspirin [Lo-Dose Aspirin EC] 81 mg PO DAILY 10/04/18 [History] Dapagliflozin Propanediol [Farxiga] 10 mg PO DAILY 10/04/18 [History] Gabapentin 800 mg PO TID 10/04/18 [History] Insulin Glargine [Lantus] 15 unit SQ BID 10/04/18 [History] Allergy/AdvReac Type Severity Reaction Status Date / Time Penicillins Allergy Anaphylaxis Verified 10/04/18 10:28 - Meds/Allergy Pre-op Review Medications Reviewed: Yes Allergies Reviewed: Yes Beta Blockers on Current Med List: No Anesthesia Results - Labs 12/01/18 09:42 12/01/18 09:42 - Imaging EKG: report reviewed Anesthesia Exam O2 Sat Height 1.73 m Weight 70.1 kg O2 Sat by Pulse Oximetry 96 O2 Sat by Pulse Oximetry 97 O2 Sat by Pulse Oximetry 94 O2 Sat by Pulse Oximetry 94 O2 Sat by Pulse Oximetry 94 Vital Signs Temp Pulse Resp BP Pulse Ox 100.5 F H 93 18 106/66 94 12/01/18 05:23 12/01/18 05:23 12/01/18 05:23 12/01/18 05:23 12/01/18 05:23 Height: 5'8 Weight: 154 lbs NPO (# of Hours): MN Pain Scale: 0 - HEENT Pupil (Motor): Pupils equal, EOMI Oral Opening: Greater than 3 - DUMP ATTENDANT LOC: Oriented DUMP ATTENDANT Motor: Normal RUE, Normal LUE, Normal RLE, Normal LLE, Normal Face DUMP ATTENDANT Sensory: Normal: RUE, LUE, RLE, LLE, Face - Cardiac Rhythm: Regular Murmur: None JVD: No Carotid Bruit: No - Pulmonary Breath Sounds: bilateral Clear Respiratory Effort: Symmetrical Anesthesia Assess/Plan ASA Score: 2 Level of consciousness: Cooperative, Oriented Anesthetic Plan: General Autologous Blood: No Monitoring Plan: Standard Monitors Recovery Plan: PACU (Discussed GA, agrees to proceed)
[2018-12-01] MEDS ORDERED: Famotidine 20 MG/2 ML VIAL ONE (17:38)
[2018-12-01] MEDS ORDERED: Acetaminophen IV 1,000 MG/100 ML INFUS..BTL ONE (17:38)
[2018-12-01] MEDS ORDERED: Pregabalin 75 MG CAPSULE ONE (17:41)
[2018-12-01] MEDS ORDERED: Bupivacaine/EPI 1:200k 0.5%PF 10 ML VIAL ONE (17:55)
[2018-12-01] MEDS ORDERED: *HR* Magnesium Sulfate 1 GM/2 ML VIAL ONE (18:05)
[2018-12-01] MEDS ORDERED: Ondansetron 4 MG/2 ML VIAL ONE (18:13)
[2018-12-01] MEDS ORDERED: Dexamethasone 4 MG/ML VIAL ONE (18:13)
--- NOTE | 2018-12-01 19:02 | Orthopedic Operative Note ---
Date of procedure: 12/01/18 Procedure: OPERATIVE REPORT SURGEON: Henry Tate MD PREOPERATIVE DIAGNOSIS: Right upper shoulder cellulitis POSTOPERATIVE DIAGNOSIS: Same PROCEDURE: Incision, drainage, revision, and removal of the right upper extremity. ANESTHESIA: Gen. anesthesia SPECIMENS: Forearm swabs sent for culture PREOPERATIVE NOTE The surgical plan was reviewed with the patient. The risks, benefits, alternatives, and potential complications of this procedure were discussed with the patient including injury to veins, arteries, nerves, tendons, ligaments, and bone. Also discussed were the risks of infection, bleeding, pain, blood clots, the possible need for a blood transfusion, the possible need for further procedures, heart attack, stroke, and . Additional risks include persistent infection and the need for further debridements. All of this was explained in simple terms, and the patient verbalized understanding and wished to proceed. Consent was given to proceed with surgery. PROCEDURE: The patient was seen in the preoperative holding area where the identify and the consent were confirmed. The right upper extremity was marked. Final questions were answered. The patient was brought back to the operating room and placed supine on the operating room table. A huddle was performed with the patient and all vital surgical team members confirming patient identity, the correct procedure, and the correct operative site. General anesthesia was administered. The operative extremity was prepped and draped in the usual sterile fashion. A surgical time out was performed immediately preceding the incision with all personnel in the operating room to confirm patient identity, the correct operative site and extremity, correct radiographic studies, availability of appropriate surgical equipment, and agreement on the planned procedure. The tourniquet was inflated without examination. Due to the multifocal nature, separate incisions were made. Attention was first directed to the mid volar forearm where there is a circular area of erythema and induration which was incised longitudinally and dissection proceeded through the skin and the subcutaneous tissue. There was no gross purulence, however there was watery drainage from cellulitis. The fascia was identified and appeared healthy in appearance. It was incised and the deep volar forearm compartment was identified and there was no purulence within this space. The wound was copiously irrigated and loosely closed over a [place] drain. Attention was then directed to the volar wrist area and carpal tunnel region there is a significant patch of redness. A longitudinal incision was made over the carpal tunnel and extending proximally into the volar forearm crossing the wrist at an angle. Dissection proceeded carefully through the subcutaneous tissue did not have any purulence. The deep fascia was opened from proximal to distal into the carpal tunnel completely decompressing the carpal tunnel and volar distal forearm region. There is no gross purulence in the deep soft tissues in this area. The wound was copiously irrigated and closed over 2 [place] drains. The hand was identified next and the old infection site was saucerized at both locations, at the proximal distal portions of the old I&D site. There is no purulence in this area and the area was nearly fully epithelialized from the prior infection. Finally attention was directed to the ring finger which was read and erythematous dorsally and a longitudinal incision was made over the proximal interphalangeal joint region, the area of the most significant redness. Dissection proceeded carefully through the subcutaneous tissue and there is no identifiable purulence in this area. The joint itself was not swollen when examined at this point. The incision was loosely closed. A soft, sterile dressing was applied and the tourniquet was deflated. The instrument, sponge, and needle counts were correct after wound closure. POST OPERATIVE PLAN: Continue IV antibiotics under the direction of the hospitalist and follow-up the intraoperative cultures. Was there an assistant professor of forestry present: No Estimated blood loss (cc): 1
[2018-12-01] MEDS ORDERED: *HR* Promethazine 25 MG/ML VIAL IVP PRN (19:21)
[2018-12-01] MEDS ORDERED: *HR* HYDROmorphone (PF) 1 MG/ML SYRINGE IVP PRN (19:21)
[2018-12-01] MEDS ORDERED: *HR* OxyCODONE Immed Rel 5 MG TABLET PO PRN (19:21)
[2018-12-01] MEDS ORDERED: *HR* Labetalol 20 MG/4 ML SYRINGE IVP PRN (19:21)
[2018-12-01] MEDS ORDERED: *HR* HYDROmorphone 2 MG TABLET PO PRN (19:21)
[2018-12-01] MEDS: *HR* HYDROmorphone (PF) 1 MG/ML SYRINGE IVP PRN ×4 (19:36→20:09)
--- NOTE | 2018-12-01 20:48 | Anesthesia Evaluation Post Op ---
Date of Encounter: 12/01/18 Time of Encounter: 20:34 - Vital Signs Vital Signs: Vital Signs Temp Pulse Resp BP Pulse Ox 12/01/18 20:10 97.9 F 73 14 108/68 100 12/01/18 20:00 74 12 104/69 100 12/01/18 19:50 73 14 112/73 98 12/01/18 19:40 97.7 F 75 18 117/78 99 12/01/18 19:30 73 18 120/82 98 12/01/18 19:20 73 16 110/72 95 12/01/18 19:10 97.2 F L 70 16 118/71 97 12/01/18 14:38 98.7 F 84 16 109/71 96 12/01/18 12:50 98.9 F 87 16 124/81 97 12/01/18 06:55 100.3 F H 91 16 115/69 94 12/01/18 05:23 100.5 F H 93 18 106/66 94 Intake and Output 12/01/18 12/01/18 12/01/18 07:59 15:59 23:59 Intake Total 200 / 200 Output Total 550 / 555 5 / 555 Balance -550 / -355 195 / -355 Intake: IV Fluids 200 / 200 Ofirmev 1,000 mg/100 ml 1,000 100 / 100 mg In 100 ml @ 400 mls/hr IVPB ONCE ONE Rx#:[id number] Flagyl Premix 500 MG/100 ML 500 100 / 100 mg In 100 ml @ 100 mls/hr IVPB Q8HR [facility] Rx#:[id number] Output: Urine 550 / 550 Estimated Blood Loss 5 / 5 Other: Weight 70.1 kg Blood Glucose* 91 90 Patient Weight 12/01/18 23:59 Weight 70.1 kg - Lungs Lungs: Clear Ascult./Percussion - Airway Airway: Non-obstructed - Cardiovascular Regular Rate - Mental Status Mental Status: Asleep with brisk response to light stimulation - Pain Pain Scale: 8 ( ) Pain Scale used: Numeric (1 - 10) - Nausea Vomiting Nausea Vomiting: Not Present - Hydration Hydration: Ice chips, Has not voided - Discharge PostOp Status: Transfer Patient to floor Anes Supervising Prov Stmt: PT seen/evaluated, VSS and has met criteria for discharge to home. Denise Osborn MD
[2018-12-01] MEDS ORDERED: Insulin LISPRO 300 UNITS/3 ML VIAL SQ SCH (21:00)
[2018-12-01] MEDS: Cefepime HCl 2,000 MG in Water for inj. (sterile) 20 ML IVP SCH (22:22)
[2018-12-01] MEDS: MetroNIDAZOLE 500 MG/100 ML 500 MG/100 ML BAG IVPB SCH (23:43)
[2018-12-02 02:01] LABS: Basophils % 0.2 %; Hematocrit 35.6 % (37.5-50.1); Hemoglobin 11.6 g/dL (12.9-16.9); Immature Granulocytes % 1.1 % (0-4); Lymphocytes # 0.5 K/mcL (0.6-4.6); Lymphocytes % 8.8 %; Mean Corpuscular HGB Conc 32.6 g/dL (31.6-35.5); Mean Corpuscular Hemoglobin 31.3 pg (28.0-33.3); Monocytes # 0.2 K/mcL (0.0-1.3); Monocytes % 3.2 %; Neutrophils # 4.6 K/mcL (1.6-8.9); Platelet Count 149 K/mcL (140-400); Red Blood Count 3.71 M/mcL (4.19-5.50); Red Cell Distribution Width 12.4 % (11.5-14.5); Segmented Neutrophils % 86.7 %; White Blood Count 5.3 K/mcL (4.3-11.1)
[2018-12-02 02:43] LABS: BUN/Creatinine Ratio 24 (6-26); Blood Urea Nitrogen 21 mg/dL (6-20); Calcium 8.3 mg/dL (8.6-10.3); Carbon Dioxide 21 mEq/L (23-29); Chloride 103 mEq/L (98-107); Glucose 286 mg/dL (70-105); Osmolality,Calculated 289 (280-300); Potassium 5.2 mEq/L (3.5-5.1); Sodium 133 mEq/L (136-145); eGFR For African Americans > 60 (> 60); eGFR For Non-African Americans > 60 (> 60)
[2018-12-02 06:16] LABS: Barbiturate Screen,Urine Negative ng/mL (Cutoff=200)
[2018-12-02] MEDS: *HR* HYDROcodone/Acet 5/325 mg TABLET PO PRN (06:20)
[2018-12-02 06:21] LABS: Amphetamine Screen,Urine Negative ng/mL (Cutoff=1000); Benzodiazepines Screen,Urine Negative ng/mL (Cutoff=300)
[2018-12-02 06:22] LABS: Cannabinoid Screen,Urine Positive ng/mL (Cutoff = 50); Cocaine Screen,Urine Negative ng/mL (Cutoff= 300); Opiate Screen,Urine Positive ng/mL (Cutoff=300); Phencyclidine Screen,Urine Negative ng/mL (Cutoff=25)
[2018-12-02] MEDS ORDERED: Insulin LISPRO 300 UNITS/3 ML VIAL SQ SCH ×3 (07:30→21:00)
[2018-12-02] MEDS: Ringers Solution, Lactated 1,000 ML IVC SCH ×3 (07:42→14:21)
[2018-12-02] MEDS: Cefepime HCl 2,000 MG in 0.9 % Sodium Chloride Mini Bag 100 ML IVPB SCH (07:42)
[2018-12-02] MEDS: Gabapentin 400 MG CAPSULE PO SCH ×4 (07:43→21:48)
[2018-12-02] MEDS ORDERED: Insulin Human Regular 10 UNIT in 0.9 % Sodium Chloride 10 ML IV ONE (08:19)
[2018-12-02] MEDS: MetroNIDAZOLE 500 MG/100 ML 500 MG/100 ML BAG IVPB SCH ×2 (08:51→15:22)
[2018-12-02] MEDS: Aspirin Enteric Coated 81 MG Tablet PO SCH (08:51)
[2018-12-02] MEDS ORDERED: Aspirin Enteric Coated 81 MG Tablet PO SCH (09:00)
[2018-12-02] MEDS: Insulin DETEMIR 100 UNIT/ML X5UNITS SQ SCH ×2 (10:05→22:13)
--- NOTE | 2018-12-02 10:11 | Orthopedics Progress Note ---
Date of Encounter: 12/02/18 Time of Encounter: 10:09 Subjective Interval history: No overnight issues. Pain is controlled. No nausea/vomiting. No CP/SOB. Vitals reviewed Extremity exam: Dressing clean, dry and intact Proximal erythema diminished Distally neurovascularly intact to motor/sensory exam s/p right arm I&D Continue current management PO pain and nausea control IV atbx per hospitalist Daily dressing changes Drains out tomorrow Objective Vital signs: Vital Signs Temp Pulse Resp BP Pulse Ox 12/02/18 07:18 97.5 F L 79 17 103/66 93 12/02/18 05:14 96.9 F L 64 20 103/62 93 12/02/18 01:25 97.6 F 70 8 95/59 95 12/01/18 23:44 97.6 F 77 8 101/63 96 12/01/18 22:15 97.7 F 73 109/72 92 12/01/18 21:10 97.7 F 75 8 96/60 94 12/01/18 20:40 97.8 F 73 12 100/67 97 12/01/18 20:30 74 12 109/67 100 12/01/18 20:20 74 12 108/70 100 12/01/18 20:10 97.9 F 73 14 108/68 100 12/01/18 20:00 74 12 104/69 100 12/01/18 19:50 73 14 112/73 98 12/01/18 19:40 97.7 F 75 18 117/78 99 12/01/18 19:30 73 18 120/82 98 12/01/18 19:20 73 16 110/72 95 12/01/18 19:10 97.2 F L 70 16 118/71 97 12/01/18 14:38 98.7 F 84 16 109/71 96 12/01/18 12:50 98.9 F 87 16 124/81 97 Intake and Output 12/01/18 12/02/18 12/02/18 23:59 07:59 15:59 Intake Total 220 / 220 350 / 350 Output Total 825 / 825 Balance 215 / -335 -475 / -475 Intake: IV Fluids 220 / 220 350 / 350 Maxipime 2,000 MG In Water for 20 inj. (sterile) 20 ML @ 300 mls/ hr IVP Q12H [facility] Rx#:[id number] Ofirmev 1,000 mg/100 ml 1,000 100 / 100 mg In 100 ml @ 400 mls/hr IVPB ONCE ONE Rx#:[id number] Flagyl Premix 500 MG/100 ML 500 100 / 100 100 / 100 mg In 100 ml @ 100 mls/hr IVPB Q8HR [facility] Rx#:[id number] Vancocin 1,000 MG In 0.9 % 250 / 250 Sodium Chloride 250 ML @ 167 mls/hr IVPB Q12H [facility] Rx#: [id number] Oral 0 / 0 Output: Urine 825 / 825 Estimated Blood Loss 5 / 5 Other: Weight 71.43 kg Blood Glucose* 90 493 478 Patient Weight 12/02/18 23:59 Weight 71.43 kg - Labs CBC & BMP: 12/02/18 01:46 12/02/18 01:46 Labs: Abnormal lab results RBC 3.71 M/mcL (4.19-5.50) L 12/02/18 01:46 Hgb 11.6 g/dL (12.9-16.9) L 12/02/18 01:46 Hct 35.6 % (37.5-50.1) L 12/02/18 01:46 Band Neutrophils % 9.0 % (0-4) H 12/01/18 09:42 Lymphocytes # 0.5 K/mcL (0.6-4.6) L 12/02/18 01:46 ESR 77 mm/hr (0-10) H 12/01/18 09:42 Sodium 133 mEq/L (136-145) L 12/02/18 01:46 Potassium 5.2 mEq/L (3.5-5.1) H D 12/02/18 01:46 Carbon Dioxide 21 mEq/L (23-29) L 12/02/18 01:46 BUN 21 mg/dL (6-20) H 12/02/18 01:46 Glucose 286 mg/dL (70-105) H 12/02/18 01:46 POC Glucose 493 mg/dL (70-99) H* 12/02/18 07:13 Calcium 8.3 mg/dL (8.6-10.3) L 12/02/18 01:46 C-Reactive Protein > 300 mg/L (Less than 10) H 12/01/18 09:42 Urine Opiates Screen Positive ng/mL (Gbnbbw=143) H 12/02/18 06:04 U Marijuana (THC) Screen Positive ng/mL (Cutoff = 50) H 12/02/18 06:04 Consult Discharge Plan - Plan Referrals: Arie Black MD [Primary Care Provider] -
[2018-12-02] MEDS: Cefepime HCl 2,000 MG in Water for inj. (sterile) 20 ML IVP SCH ×2 (11:06→21:50)
[2018-12-02] MEDS: Insulin LISPRO 300 UNITS/3 ML VIAL SQ SCH ×4 (11:59→21:51)
--- NOTE | 2018-12-02 14:28 | Internal Med Progress Note ---
Hospitalist Progress Note - Encounter Date of Encounter: 12/02/18 Time of Encounter: 09:40 - Subjective Interval History: Patient underwent surgery yesterday with incision, drainage, revision of the right upper extremity. Patient is doing better now. Pain currently fairly controlled. Denies any fevers or chills overnight. No nausea or vomiting. His blood sugars were high this morning as he received multiple packets of peanut butter overnight because his blood sugar was in the 90s last night. Patient denies any nausea or vomiting or abdominal pain. He takes Lantus at home and he states that that works well for him. - Exam Vitals: Temp Pulse Resp BP Pulse Ox 98.4 F 60 17 102/62 96 12/02/18 11:31 12/02/18 11:31 12/02/18 11:31 12/02/18 11:31 12/02/18 11:31 Exam: General: Patient is alert, cooperative, mild distress and oriented 3 Respiratory: Good respiratory effort. Normal breath sounds. No wheezing or crackles. Cardiovascular: Regular rate and rhythm. s1 and s2 normal No clicks, rubs, gallops, or murmurs. No pedal edema Abdomen: Abdomen is soft, nontender. Bowel sounds are present Musculoskeletal: Spontaneously moving all extremities , right upper extremity bandaged up to the hand with bandages also present over right fourth digit. Skin: warm, dry, intact. Neuro: Alert oriented x 3 normal cranial nerves, no focal deficits - Assessment and Plan (1) Cellulitis of right upper extremity Current Visit: Yes Status: Acute (2) Diabetes Current Visit: Yes Status: Acute DVT Prophylaxis: Place patient on subcutaneous heparin - Summary of Assessment and Plan Summary of Assessment and Plan: Acute cellulitis and abscess involving the right upper extremity: Status post incision and drainage done yesterday. Continue current antibiotics. Wound cultures pending. Orthopedics following. Pain control. Limb elevation. Diabetes mellitus type 2: Blood sugars are uncontrolled today. We will increase insulin regimen. Add Levemir 15 units twice daily. Change sliding scale coverage to high correctional. We will also had nutritional coverage. Diabetic diet.. Peripheral neuropathy: Continue gabapentin. - Time Spent with Patient Total time spent is greater than 50% in coordination of care (as documented) at patient's floor/unit and/or counseling patient: Internal Medicine: Result - Labs CBC & Chem 7: 12/02/18 01:46 12/02/18 01:46 Labs: Short CBC 12/02/18 Range/Units 01:46 WBC 5.3 (4.3-11.1) K/mcL Hgb 11.6 L (12.9-16.9) g/dL Hct 35.6 L (37.5-50.1) % Plt Count 149 (140-400) K/mcL Neutrophils # 4.6 (1.6-8.9) K/mcL BMP 12/02/18 01:46 Sodium 133 L Potassium 5.2 H D Chloride 103 Carbon Dioxide 21 L BUN 21 H Creatinine 0.89 Glucose 286 H Calcium 8.3 L - Impressions Impressions Upper Extremity CT 12/01/18 09:47 IMPRESSION: Likely postsurgical changes of the ulnar aspect of the left hand. Extensive soft tissue edema of the hand, wrist, forearm and elbow suggesting cellulitis. No evidence of soft tissue gas or discrete drainable fluid collection to suggest abscess. No specific radiographic evidence of osteomyelitis. No evidence of joint effusion. 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 D/ / 12/01/2018 12:27:21 Kang Purvis MD / Vika Joe Interpreting Provider: Kang Purvis MD Consult Discharge Plan - Plan Referrals: Arie Black MD [Primary Care Provider] - (2) Diabetes Qualifiers: Diabetes mellitus type: type 2 Diabetes mellitus prison insulin use: with prison use Diabetes mellitus complication status: with neurologic complications Diabetes mellitus complication detail: with polyneuropathy Qualified Code(s): E11.42 - Type 2 diabetes mellitus with diabetic polyneuropathy; Z79.4 - terminal makeup operator (current) use of insulin
[2018-12-02] MEDS: *HR* Heparin 5,000 UNIT/ML VIAL SQ SCH (18:15)
[2018-12-02] MEDS: Lactobacillus 1 EACH CAP.SPRINK PO SCH (21:49)
[2018-12-03 01:16] LABS: Basophils % 0.1 %; Eosinophils # 0.1 K/mcL (0.0-0.6); Eosinophils % 0.7 %; Hemoglobin 10.3 g/dL (12.9-16.9); Immature Granulocytes % 0.9 % (0-4); Lymphocytes # 1.5 K/mcL (0.6-4.6); Lymphocytes % 19.6 %; Mean Corpuscular HGB Conc 33.2 g/dL (31.6-35.5); Mean Corpuscular Hemoglobin 31.2 pg (28.0-33.3); Mean Corpuscular Volume 93.9 fL (83.0-100.0); Monocytes # 0.6 K/mcL (0.0-1.3); Monocytes % 7.2 %; Neutrophils # 5.4 K/mcL (1.6-8.9); Platelet Count 195 K/mcL (140-400); Red Cell Distribution Width 12.6 % (11.5-14.5); Segmented Neutrophils % 71.5 %; White Blood Count 7.6 K/mcL (4.3-11.1)
[2018-12-03] MEDS: MetroNIDAZOLE 500 MG/100 ML 500 MG/100 ML BAG IVPB SCH ×3 (01:21→16:10)
[2018-12-03 01:36] LABS: BUN/Creatinine Ratio 26 (6-26); Blood Urea Nitrogen 24 mg/dL (6-20); Calcium 8.4 mg/dL (8.6-10.3); Carbon Dioxide 29 mEq/L (23-29); Chloride 101 mEq/L (98-107); Glucose 151 mg/dL (70-105); Osmolality,Calculated 289 (280-300); Potassium 4.2 mEq/L (3.5-5.1); Sodium 136 mEq/L (136-145); eGFR For African Americans > 60 (> 60); eGFR For Non-African Americans > 60 (> 60)
[2018-12-03 02:04] LABS: Platelet Estimate Normal (Normal)
[2018-12-03] MEDS: *HR* Heparin 5,000 UNIT/ML VIAL SQ SCH ×2 (05:12→18:26)
[2018-12-03] MEDS: Lactobacillus 1 EACH CAP.SPRINK PO SCH ×2 (08:29→22:13)
[2018-12-03] MEDS: Gabapentin 400 MG CAPSULE PO SCH ×3 (08:29→22:13)
[2018-12-03] MEDS: Aspirin Enteric Coated 81 MG Tablet PO SCH (08:29)
[2018-12-03] MEDS: Insulin DETEMIR 100 UNIT/ML X5UNITS SQ SCH ×2 (08:30→22:15)
[2018-12-03] MEDS: Insulin LISPRO 300 UNITS/3 ML VIAL SQ SCH ×7 (08:30→22:30)
--- NOTE | 2018-12-03 09:28 | Orthopedics Progress Note ---
Date of Encounter: 12/03/18 Time of Encounter: 09:26 Subjective Interval history: No overnight issues. Pain is controlled. No nausea/vomiting. No CP/SOB. Refusing IV access for atbx Vitals reviewed Extremity exam: Incisions clean without gross purulent drainage Proximal erythema diminished Distally neurovascularly intact to motor/sensory exam s/p right arm I&D Continue current management PO pain and nausea control atbx per hospitalist Daily dressing changes, mary drains pulled today Objective Vital signs: Vital Signs Temp Pulse Resp BP Pulse Ox 12/03/18 07:08 97.9 F 87 15 119/67 94 12/03/18 04:51 97.6 F 71 12 112/65 92 12/02/18 21:50 98.4 F 73 20 128/73 94 12/02/18 19:01 97.9 F 78 20 100/61 91 12/02/18 11:31 98.4 F 60 17 102/62 96 Intake and Output 12/02/18 12/03/18 12/03/18 23:59 07:59 15:59 Intake Total 630 / 1080 370 / 370 Output Total 825 / 2350 0 / 0 Balance -195 / -1270 370 / 370 Intake: IV Fluids 370 / 820 370 / 370 Maxipime 2,000 MG In Water for inj. (sterile) 20 ML @ 300 mls/ hr IVP Q12H [facility] Rx#:[id number] Flagyl Premix 500 MG/100 ML 500 100 / 300 100 / 100 mg In 100 ml @ 100 mls/hr IVPB Q8HR [facility] Rx#:[id number] Vancocin 1,000 MG In 0.9 % 250 / 500 250 / 250 Sodium Chloride 250 ML @ 167 mls/hr IVPB Q12H [facility] Rx#: [id number] Oral 260 / 260 0 / 0 Output: Urine 825 / 2350 0 / 0 Other: Meal Dinner Percent of Meal Consumed 60% Blood Glucose* 131 175 - Labs CBC & BMP: 12/03/18 00:21 12/03/18 00:21 Labs: Abnormal lab results RBC 3.30 M/mcL (4.19-5.50) L 12/03/18 00:21 Hgb 10.3 g/dL (12.9-16.9) L 12/03/18 00:21 Hct 31.0 % (37.5-50.1) L 12/03/18 00:21 Band Neutrophils % 9.0 % (0-4) H 12/01/18 09:42 Lymphocytes # 0.5 K/mcL (0.6-4.6) L 12/02/18 01:46 ESR 77 mm/hr (0-10) H 12/01/18 09:42 Sodium 133 mEq/L (136-145) L 12/02/18 01:46 Potassium 5.2 mEq/L (3.5-5.1) H D 12/02/18 01:46 Carbon Dioxide 21 mEq/L (23-29) L 12/02/18 01:46 BUN 24 mg/dL (6-20) H 12/03/18 00:21 Glucose 151 mg/dL (70-105) H 12/03/18 00:21 POC Glucose 326 mg/dL (70-99) H 12/02/18 15:54 Calcium 8.4 mg/dL (8.6-10.3) L 12/03/18 00:21 C-Reactive Protein > 300 mg/L (Less than 10) H 12/01/18 09:42 Vancomycin Trough 12 mcg/mL (5-10) H 12/03/18 00:21 Urine Opiates Screen Positive ng/mL (Jarjsz=090) H 12/02/18 06:04 U Marijuana (THC) Screen Positive ng/mL (Cutoff = 50) H 12/02/18 06:04 Consult Discharge Plan - Plan Referrals: Arie Black MD [Primary Care Provider] -
[2018-12-03] MEDS: Cefepime HCl 2,000 MG in Water for inj. (sterile) 20 ML IVP SCH ×2 (13:12→22:30)
--- NOTE | 2018-12-03 15:05 | Internal Med Progress Note ---
Hospitalist Progress Note - Encounter Date of Encounter: 12/03/18 Time of Encounter: 15:13 - Subjective Interval History: Evaluated patient earlier today. His IV had gone bad overnight and was removed. Continue IV was notable to be placed despite 4 attempts. I have recommended placing an extended peripheral IV but patient does not wish to have this done yet. Explained to him that he needs IV antibiotics to help treat his infection. He states he understands it and would just like a break and would agree to having this line placed later today. No fevers or chills reported overnight - Exam Vitals: Temp Pulse Resp BP Pulse Ox 98.0 F 78 14 120/68 94 12/03/18 12:20 12/03/18 12:20 12/03/18 12:20 12/03/18 12:20 12/03/18 12:20 Exam: General: Patient is alert, no acute distress, oriented x 3 Respiratory: Good respiratory effort. Normal breath sounds. No wheezing or crackles. Cardiovascular: Regular rate and rhythm. s1 and s2 normal No clicks, rubs, gallops, or murmurs. No pedal edema Abdomen: Abdomen is soft, nontender. Bowel sounds are present Musculoskeletal: Spontaneously moving all extremities Skin: Right forearm bandaged. Neuro: Alert oriented x 3 normal cranial nerves, no focal deficits - Assessment and Plan (1) Cellulitis of right upper extremity Current Visit: Yes Status: Acute (2) Diabetes Current Visit: Yes Status: Acute DVT Prophylaxis: Place patient on subcutaneous heparin - Summary of Assessment and Plan Summary of Assessment and Plan: Acute cellulitis and abscess involving the right upper extremity: Status post incision and drainage. Place extended peripheral IV and continue antibiotics. Wound cultures still pending. Diabetes mellitus type 2: Improved control. Continue current insulin regimen. Continue to monitor blood sugars. Continue diabetic diet. Peripheral neuropathy: Continue gabapentin. moderate risk for complications. - Time Spent with Patient Total time spent is greater than 50% in coordination of care (as documented) at patient's floor/unit and/or counseling patient: Internal Medicine: Result - Labs CBC & Chem 7: 12/03/18 00:21 12/03/18 00:21 Labs: Short CBC 12/03/18 Range/Units 00:21 WBC 7.6 (4.3-11.1) K/mcL Hgb 10.3 L (12.9-16.9) g/dL Hct 31.0 L (37.5-50.1) % Plt Count 195 (140-400) K/mcL Neutrophils # 5.4 (1.6-8.9) K/mcL BMP 12/03/18 00:21 Sodium 136 Potassium 4.2 Chloride 101 Carbon Dioxide 29 BUN 24 H Creatinine 0.93 Glucose 151 H Calcium 8.4 L Consult Discharge Plan - Plan Referrals: Arie Black MD [Primary Care Provider] - (2) Diabetes Qualifiers: Diabetes mellitus type: type 2 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
[2018-12-04] MEDS: MetroNIDAZOLE 500 MG/100 ML 500 MG/100 ML BAG IVPB SCH ×2 (00:13→09:20)
[2018-12-04] MEDS: *HR* Heparin 5,000 UNIT/ML VIAL SQ SCH ×2 (05:44→18:47)
[2018-12-04 06:04] LABS: Basophils % 0.6 %; Eosinophils # 0.1 K/mcL (0.0-0.6); Eosinophils % 1.4 %; Hemoglobin 11.4 g/dL (12.9-16.9); Immature Granulocytes % 1.1 % (0-4); Lymphocytes # 2.3 K/mcL (0.6-4.6); Lymphocytes % 32.8 %; Mean Corpuscular HGB Conc 32.6 g/dL (31.6-35.5); Mean Corpuscular Volume 95.1 fL (83.0-100.0); Mean Platelet Volume 9.5 fL (9.4-12.4); Monocytes # 0.6 K/mcL (0.0-1.3); Monocytes % 8.3 %; Platelet Count 225 K/mcL (140-400); Red Blood Count 3.68 M/mcL (4.19-5.50); Red Cell Distribution Width 12.8 % (11.5-14.5); Segmented Neutrophils % 55.8 %; White Blood Count 7.1 K/mcL (4.3-11.1)
[2018-12-04 06:23] LABS: BUN/Creatinine Ratio 23 (6-26); Blood Urea Nitrogen 20 mg/dL (6-20); Calcium 8.5 mg/dL (8.6-10.3); Carbon Dioxide 30 mEq/L (23-29); Chloride 97 mEq/L (98-107); Glucose 120 mg/dL (70-105); Osmolality,Calculated 282 (280-300); Potassium 4.2 mEq/L (3.5-5.1); Sodium 134 mEq/L (136-145); eGFR For African Americans > 60 (> 60); eGFR For Non-African Americans > 60 (> 60)
[2018-12-04 06:53] LABS: Platelet Estimate Normal (Normal)
--- NOTE | 2018-12-04 07:21 | Orthopedics Progress Note ---
Date of Encounter: 12/04/18 Time of Encounter: 07:18 - Assessment and Plan (1) Cellulitis of right upper extremity Current Visit: Yes Status: Acute Subjective Interval history: S: Events over the weekend noted. Improved pain to the right upper extremity overall. Pain currently and mostly localized to the volar/radial aspect of the wrist area. O: Afebrile on the vital signs are stable All wounds are healing nicely without any drainage. Improved swelling to the right upper extremity throughout including the ring finger The erythema has resolved and the elbow and proximal forearm region. Erythema has improved to the volar wrist area with some persistence Moderate erythema persistent to the dorsal ring finger He can weakly flex and extend the digits with limitations due to pain inhibition and also what appears to be lack of effort. The fingertips are all grossly sensate and well-perfused, and the radial artery pulse is 2+. Cultures from the OR are negative A: Overall clinical improvement after operative I&D and IV antibiotics P: Continue antibiotics per the primary team; No plans for further operative debridement at this point. Elevation of the right upper extremity Motion exercises to reduce the risk of stiffness Objective Vital signs: Vital Signs Temp Pulse Resp BP Pulse Ox 12/04/18 06:25 98.4 F 83 16 119/67 96 12/04/18 04:10 98.1 F 87 16 117/64 90 12/03/18 23:23 98.2 F 75 18 122/74 91 12/03/18 19:55 99.2 F 82 16 130/80 93 12/03/18 16:12 98.5 F 79 16 123/82 96 12/03/18 12:20 98.0 F 78 14 120/68 94 Intake and Output 12/03/18 12/03/18 12/04/18 15:59 23:59 07:59 Intake Total 240 / 1090 480 / 1090 Output Total 200 / 200 875 / 875 Balance 40 / 890 480 / 890 -875 / -875 Intake: Oral 240 / 720 480 / 720 Output: Urine 200 / 200 875 / 875 Other: Meal Breakfast Dinner Percent of Meal Consumed 100% 80% Weight 76.1 kg Blood Glucose* 174 142 Patient Weight 12/04/18 23:59 Weight 76.1 kg - Labs CBC & BMP: 12/04/18 05:35 12/04/18 05:35 Labs: Abnormal lab results RBC 3.68 M/mcL (4.19-5.50) L 12/04/18 05:35 Hgb 11.4 g/dL (12.9-16.9) L 12/04/18 05:35 Hct 35.0 % (37.5-50.1) L 12/04/18 05:35 Band Neutrophils % 9.0 % (0-4) H 12/01/18 09:42 Lymphocytes # 0.5 K/mcL (0.6-4.6) L 12/02/18 01:46 ESR 77 mm/hr (0-10) H 12/01/18 09:42 Sodium 134 mEq/L (136-145) L 12/04/18 05:35 Potassium 5.2 mEq/L (3.5-5.1) H D 12/02/18 01:46 Chloride 97 mEq/L (98-107) L 12/04/18 05:35 Carbon Dioxide 30 mEq/L (23-29) H 12/04/18 05:35 BUN 24 mg/dL (6-20) H 12/03/18 00:21 Glucose 120 mg/dL (70-105) H 12/04/18 05:35 POC Glucose 142 mg/dL (70-99) H 12/03/18 19:58 Calcium 8.5 mg/dL (8.6-10.3) L 12/04/18 05:35 C-Reactive Protein > 300 mg/L (Less than 10) H 12/01/18 09:42 Vancomycin Trough 12 mcg/mL (5-10) H 12/03/18 00:21 Urine Opiates Screen Positive ng/mL (Skkwfo=955) H 12/02/18 06:04 U Marijuana (THC) Screen Positive ng/mL (Cutoff = 50) H 12/02/18 06:04 Consult Discharge Plan - Plan Referrals: Arie Black MD [Primary Care Provider] -
[2018-12-04] MEDS: Insulin LISPRO 300 UNITS/3 ML VIAL SQ SCH ×7 (07:51→21:01)
[2018-12-04] MEDS: Aspirin Enteric Coated 81 MG Tablet PO SCH (09:19)
[2018-12-04] MEDS: Gabapentin 400 MG CAPSULE PO SCH ×3 (09:19→20:58)
[2018-12-04] MEDS: Lactobacillus 1 EACH CAP.SPRINK PO SCH ×2 (09:19→20:59)
[2018-12-04] MEDS: Cefepime HCl 2,000 MG in Water for inj. (sterile) 20 ML IVP SCH ×2 (09:20→20:57)
[2018-12-04] MEDS: Insulin DETEMIR 100 UNIT/ML X5UNITS SQ SCH ×2 (09:24→21:09)
[2018-12-04] MEDS: Acetaminophen IV 1,000 MG/100 ML INFUS..BTL IVPB SCH ×2 (12:20→18:47)
--- NOTE | 2018-12-04 13:55 | Internal Med Progress Note ---
Hospitalist Progress Note - Encounter Date of Encounter: 12/04/18 Time of Encounter: 13:53 - Subjective Interval History: Evaluated patient earlier today. Continues to have pain in his right upper extremity. Currently somnolent. He did receive pain medications this morning. No fever or chills reported - Exam Vitals: Temp Pulse Resp BP Pulse Ox 98 F 87 16 123/64 96 12/04/18 11:38 12/04/18 11:38 12/04/18 11:38 12/04/18 11:38 12/04/18 11:38 Exam: General: Patient is alert, no acute distress, oriented x 3 Respiratory: Good respiratory effort. Normal breath sounds. No wheezing or crackles. Cardiovascular: Regular rate and rhythm. s1 and s2 normal No clicks, rubs, gallops, or murmurs. No pedal edema Abdomen: Abdomen is soft, nontender. Bowel sounds are present Musculoskeletal: Spontaneously moving all extremities Skin: Right forearm bandaged. Erythema over his right 4th finger improving Neuro: Alert oriented x 3 normal cranial nerves, no focal deficits - Assessment and Plan (1) Cellulitis of right upper extremity Current Visit: Yes Status: Acute (2) Diabetes Current Visit: Yes Status: Acute DVT Prophylaxis: Place patient on subcutaneous heparin - Summary of Assessment and Plan Summary of Assessment and Plan: Acute cellulitis and abscess involving the right upper extremity: Status post incision and drainage. Continue current antibiotics. Wound cultures so far show no growth. We will consult infectious disease for antibiotic recommendations given that patient has had polymicrobial infections in the past. Diabetes mellitus type 2: Remains well controlled. Continue current insulin regimen. Peripheral neuropathy: Continue gabapentin. Moderate risk for complications. - Time Spent with Patient Total time spent is greater than 50% in coordination of care (as documented) at patient's floor/unit and/or counseling patient: Internal Medicine: Result - Labs CBC & Chem 7: 12/04/18 05:35 12/04/18 05:35 Labs: Short CBC 12/04/18 Range/Units 05:35 WBC 7.1 (4.3-11.1) K/mcL Hgb 11.4 L (12.9-16.9) g/dL Hct 35.0 L (37.5-50.1) % Plt Count 225 (140-400) K/mcL Neutrophils # 4.0 (1.6-8.9) K/mcL BMP 12/04/18 05:35 Sodium 134 L Potassium 4.2 Chloride 97 L Carbon Dioxide 30 H BUN 20 Creatinine 0.88 Glucose 120 H Calcium 8.5 L Consult Discharge Plan - Plan Referrals: Arie Black MD [Primary Care Provider] - (2) Diabetes Qualifiers: Diabetes mellitus type: type 2 Diabetes mellitus intermission coordinator insulin use: with fdc use Diabetes mellitus complication status: with neurologic complications Diabetes mellitus complication detail: with polyneuropathy Qual ified Code(s): E11.42 - Type 2 diabetes mellitus with diabetic polyneuropathy; Z79.4 - terminal manager (current) use of insulin
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
[2018-12-04] MEDS: metroNIDAZOLE 500 MG TABLET PO SCH (20:58)
[2018-12-05] MEDS: Acetaminophen IV 1,000 MG/100 ML INFUS..BTL IVPB SCH ×4 (01:03→18:50)
[2018-12-05] MEDS: *HR* Heparin 5,000 UNIT/ML VIAL SQ SCH ×2 (06:42→17:09)
--- NOTE | 2018-12-05 07:10 | Orthopedics Progress Note ---
Date of Encounter: 12/05/18 Time of Encounter: 07:08 - Assessment and Plan (1) Cellulitis of right upper extremity Current Visit: Yes Status: Acute Subjective Interval history: S: Improved pain to the right upper extremity overall since admission. Pain currently and mostly localized to the volar/radial aspect of the wrist area. O: Afebrile on the vital signs are stable All wounds are healing nicely without any drainage. Improved swelling to the right upper extremity throughout including the ring finger The erythema has resolved and the elbow and proximal forearm region. Erythema has improved to the volar wrist area with some persistence Erythema improving nicely to the ring finger. Improved flexion/extension to the digits. The fingertips are all grossly sensate and well-perfused, and the radial artery pulse is 2+. Cultures from the OR are negative A: Overall clinical improvement after operative I&D and IV antibiotics P: Continue antibiotics per the primary team; No plans for further operative debridement at this point. Elevation of the right upper extremity Motion exercises to reduce the risk of stiffness Objective Vital signs: Vital Signs Temp Pulse Resp BP Pulse Ox 12/04/18 23:50 97.8 F 67 15 114/68 94 12/04/18 19:04 98.8 F 81 16 113/74 94 12/04/18 16:18 97.5 F L 87 16 123/73 98 12/04/18 11:38 98 F 87 16 123/64 96 Intake and Output 12/04/18 12/04/18 12/05/18 15:59 23:59 07:59 Intake Total 610 / 710 100 / 710 100 / 100 Output Total 750 / 1625 Balance 610 / -915 -650 / -915 100 / 100 Intake: IV Fluids 370 / 470 100 / 470 100 / 100 Maxipime 2,000 MG In Water for 20 / 20 inj. (sterile) 20 ML @ 300 mls/ hr IVP Q12H [facility] Rx#:[id number] Ofirmev 1,000 mg/100 ml 1,000 100 / 200 100 / 200 100 / 100 mg In 100 ml @ 400 mls/hr IVPB Q6HR [facility] Rx#:[id number] Vancocin 1,000 MG In 0.9 % 250 / 250 Sodium Chloride 250 ML @ 167 mls/hr IVPB Q12H [facility] Rx#: [id number] Oral 240 / 240 Output: Urine 750 / 1625 Other: Meal Lunch Percent of Meal Consumed 50% # Voids 1 Weight 76.2 kg Blood Glucose* 150 152 Patient Weight 12/05/18 23:59 Weight 76.2 kg - Labs CBC & BMP: 12/04/18 05:35 12/04/18 05:35 Labs: Abnormal lab results RBC 3.68 M/mcL (4.19-5.50) L 12/04/18 05:35 Hgb 11.4 g/dL (12.9-16.9) L 12/04/18 05:35 Hct 35.0 % (37.5-50.1) L 12/04/18 05:35 Band Neutrophils % 9.0 % (0-4) H 12/01/18 09:42 Lymphocytes # 0.5 K/mcL (0.6-4.6) L 12/02/18 01:46 ESR 77 mm/hr (0-10) H 12/01/18 09:42 Sodium 134 mEq/L (136-145) L 12/04/18 05:35 Potassium 5.2 mEq/L (3.5-5.1) H D 12/02/18 01:46 Chloride 97 mEq/L (98-107) L 12/04/18 05:35 Carbon Dioxide 30 mEq/L (23-29) H 12/04/18 05:35 BUN 24 mg/dL (6-20) H 12/03/18 00:21 Glucose 120 mg/dL (70-105) H 12/04/18 05:35 POC Glucose 152 mg/dL (70-99) H 12/04/18 20:45 Calcium 8.5 mg/dL (8.6-10.3) L 12/04/18 05:35 C-Reactive Protein > 300 mg/L (Less than 10) H 12/01/18 09:42 Vancomycin Trough 12 mcg/mL (5-10) H 12/03/18 00:21 Urine Opiates Screen Positive ng/mL (Mdltna=596) H 12/02/18 06:04 U Marijuana (THC) Screen Positive ng/mL (Cutoff = 50) H 12/02/18 06:04 Consult Discharge Plan - Plan Referrals: Arie Black MD [Primary Care Provider] -
[2018-12-05 07:18] LABS: Hematocrit 36.4 % (37.5-50.1); Hemoglobin 11.7 g/dL (12.9-16.9); Mean Corpuscular HGB Conc 32.1 g/dL (31.6-35.5); Mean Corpuscular Hemoglobin 30.9 pg (28.0-33.3); Mean Platelet Volume 9.4 fL (9.4-12.4); Platelet Count 266 K/mcL (140-400); Red Blood Count 3.79 M/mcL (4.19-5.50); Red Cell Distribution Width 12.6 % (11.5-14.5); White Blood Count 6.4 K/mcL (4.3-11.1)
[2018-12-05 07:40] LABS: BUN/Creatinine Ratio 24 (6-26); Blood Urea Nitrogen 22 mg/dL (6-20); Calcium 8.8 mg/dL (8.6-10.3); Carbon Dioxide 31 mEq/L (23-29); Chloride 99 mEq/L (98-107); Glucose 208 mg/dL (70-105); Osmolality,Calculated 293 (280-300); Potassium 4.2 mEq/L (3.5-5.1); Sodium 137 mEq/L (136-145); eGFR For African Americans > 60 (> 60); eGFR For Non-African Americans > 60 (> 60)
[2018-12-05] MEDS: Insulin LISPRO 300 UNITS/3 ML VIAL SQ SCH ×7 (08:00→21:45)
[2018-12-05] MEDS: metroNIDAZOLE 500 MG TABLET PO SCH ×3 (08:00→21:46)
[2018-12-05] MEDS: Lactobacillus 1 EACH CAP.SPRINK PO SCH ×2 (08:00→21:46)
[2018-12-05] MEDS: Gabapentin 400 MG CAPSULE PO SCH ×3 (08:01→21:46)
[2018-12-05] MEDS: Aspirin Enteric Coated 81 MG Tablet PO SCH (08:01)
[2018-12-05] MEDS: Insulin DETEMIR 100 UNIT/ML X5UNITS SQ SCH ×2 (08:01→22:10)
[2018-12-05 09:50] LABS: Lymphocytes # 2.1 K/mcL (0.6-4.6); Monocytes # 0.5 K/mcL (0.0-1.3); Neutrophils # 3.8 K/mcL (1.6-8.9); Platelet Estimate Normal (Normal); Toxic Granulation Present (Not Present)
[2018-12-05] MEDS: Cefepime HCl 2,000 MG in Water for inj. (sterile) 20 ML IVP SCH ×2 (11:43→22:43)
--- NOTE | 2018-12-05 15:53 | Internal Med Progress Note ---
Hospitalist Progress Note - Encounter Date of Encounter: 12/05/18 Time of Encounter: 15:52 - Subjective Interval History: Evaluated patient earlier today. He reports that his pain is less intense than before but still lingering. Denies any fevers or chills overnight. Tolerating diet well. No nausea or vomiting. Does have some stiffness over his right upper extremity due to presence of bandage and swelling at site of surgery. - Exam Vitals: Temp Pulse Resp BP Pulse Ox 97.8 F 91 18 119/72 96 12/05/18 14:48 12/05/18 14:48 12/05/18 14:48 12/05/18 14:48 12/05/18 14:48 Exam: General: Patient is alert, no acute distress, oriented x 3 Respiratory: Good respiratory effort. Normal breath sounds. No wheezing or crackles. Cardiovascular: Regular rate and rhythm. s1 and s2 normal No clicks, rubs, gallops, or murmurs. No pedal edema Abdomen: Abdomen is soft, nontender. Bowel sounds are present Musculoskeletal: Spontaneously moving all extremities Skin: Right forearm bandaged. Erythema over his right 4th finger continues to improve Neuro: Alert oriented x 3 normal cranial nerves, no focal deficits - Assessment and Plan (1) Cellulitis of right upper extremity Current Visit: Yes Status: Acute (2) Diabetes Current Visit: Yes Status: Acute DVT Prophylaxis: Place patient on subcutaneous heparin - Summary of Assessment and Plan Summary of Assessment and Plan: Acute cellulitis and abscess involving the right upper extremity: Status post incision and drainage. Continue current antibiotics. Wound cultures still remain negative. Infectious disease has evaluated patient and recommended to continue current antibiotics. Possible transition to oral antibiotics and discharge tomorrow. We will continue to await finalization of culture results. Diabetes mellitus type 2: Remains blood sugars between 150 and 180. Continue current insulin regimen. Diabetic diet. Peripheral neuropathy: Continue gabapentin. Moderate risk for complications. - Time Spent with Patient Total time spent is greater than 50% in coordination of care (as documented) at patient's floor/unit and/or counseling patient: Internal Medicine: Result - Labs CBC & Chem 7: 12/05/18 06:46 12/05/18 06:46 Labs: Short CBC 12/05/18 Range/Units 06:46 WBC 6.4 (4.3-11.1) K/mcL Hgb 11.7 L (12.9-16.9) g/dL Hct 36.4 L (37.5-50.1) % Plt Count 266 (140-400) K/mcL Neutrophils # 3.8 (1.6-8.9) K/mcL BMP 12/05/18 06:46 Sodium 137 Potassium 4.2 Chloride 99 Carbon Dioxide 31 H BUN 22 H Creatinine 0.91 Glucose 208 H Calcium 8.8 Consult Discharge Plan - Plan Referrals: Arie Black MD [Primary Care Provider] - (2) Diabetes Qualifiers: Diabetes mellitus type: type 2 Diabetes mellitus exterminator termite insulin use: with exterminator termite use Diabetes mellitus complication status: with neurologic complications Diabetes mellitus complication detail: with polyneuropathy Qualified Code(s): E11.42 - Type 2 diabetes mellitus with diabetic polyneuropathy; Z79.4 - assisted (current) use of insulin
[2018-12-05] MEDS ORDERED: Gadolinium Contrast Agent (WT Based) IV PRN (19:08)
--- NOTE | 2018-12-05 19:44 | Orthopedics Progress Note ---
Date of Encounter: 12/05/18 Time of Encounter: 19:40 - Assessment and Plan (1) Cellulitis of right upper extremity Current Visit: Yes Status: Acute Subjective Interval history: S: Checked on the patient. The biggest complaint at this point is pain localized to the volar and radial aspect of the distal forearm region. The other areas have improved significantly since admission. O: Afebrile on the vital signs are stable All wounds are healing nicely without any drainage. All of the proximal cellulitis has completely resolved including around the proximal volar incision. The cellulitis has consolidated to a focal area on the volar radial forearm area just radial limb of the carpal tunnel incision that extends proximal to the volar wrist flexion crease. It is quite tender in this area and puffy. There is still cellulitis of the dorsal ring finger which has improved since admission. Improved flexion/extension to the digits overall. The fingertips are all grossly sensate and well-perfused, and the radial artery pulse is 2+. Cultures from the OR are negative Toxic granulation noted on labs. A: Overall clinical improvement after operative I&D and IV antibiotics There is an area of persistent cellulitis that was consolidated along the volar and radial aspect of the distal forearm. P: Continue antibiotics per the primary team; I will order an MRI of the forearm to further evaluate for any residual abscess. I will repeat labs tomorrow morning including ESR and CRP. Elevation of the right upper extremity Motion exercises to reduce the risk of stiffness Nothing by mouth after midnight for possible repeat I&D depending on nature of the MRI results, morning labs, and morning clinical exam. Objective Vital signs: Vital Signs Temp Pulse Resp BP Pulse Ox 12/05/18 14:48 97.8 F 91 18 119/72 96 12/05/18 10:21 97.5 F L 71 17 124/73 97 12/05/18 07:19 98.4 F 84 17 110/62 93 12/04/18 23:50 97.8 F 67 15 114/68 94 Intake and Output 12/05/18 12/05/18 12/05/18 07:59 15:59 23:59 Intake Total 350 / 1080 730 / 1080 Output Total 250 / 1850 1600 / 1850 Balance 100 / -770 -870 / -770 Intake: IV Fluids 350 / 350 Ofirmev 1,000 mg/100 ml 1,000 100 / 100 mg In 100 ml @ 400 mls/hr IVPB Q6HR [facility] Rx#:[id number] Vancocin 1,000 MG In 0.9 % 250 / 250 Sodium Chloride 250 ML @ 167 mls/hr IVPB Q12H [facility] Rx#: [id number] Oral 730 / 730 Output: Urine 250 / 1850 1600 / 1850 Other: Meal Lunch Percent of Meal Consumed 100% Weight 76.2 kg Blood Glucose* 171 180 Patient Weight 12/05/18 23:59 Weight 76.2 kg - Labs CBC & BMP: 12/05/18 06:46 12/05/18 06:46 Labs: Abnormal lab results RBC 3.79 M/mcL (4.19-5.50) L 12/05/18 06:46 Hgb 11.7 g/dL (12.9-16.9) L 12/05/18 06:46 Hct 36.4 % (37.5-50.1) L 12/05/18 06:46 Band Neutrophils % 6.0 % (0-4) H 12/05/18 06:46 Lymphocytes # 0.5 K/mcL (0.6-4.6) L 12/02/18 01:46 Toxic Granulation Present (Not Present) A 12/05/18 06:46 ESR 77 mm/hr (0-10) H 12/01/18 09:42 Sodium 134 mEq/L (136-145) L 12/04/18 05:35 Potassium 5.2 mEq/L (3.5-5.1) H D 12/02/18 01:46 Chloride 97 mEq/L (98-107) L 12/04/18 05:35 Carbon Dioxide 31 mEq/L (23-29) H 12/05/18 06:46 BUN 22 mg/dL (6-20) H 12/05/18 06:46 Glucose 208 mg/dL (70-105) H 12/05/18 06:46 POC Glucose 171 mg/dL (70-99) H 12/05/18 07:18 Calcium 8.5 mg/dL (8.6-10.3) L 12/04/18 05:35 C-Reactive Protein > 300 mg/L (Less than 10) H 12/01/18 09:42 Vancomycin Trough 12 mcg/mL (5-10) H 12/03/18 00:21 Urine Opiates Screen Positive ng/mL (Gmdeeg=839) H 12/02/18 06:04 U Marijuana (THC) Screen Positive ng/mL (Cutoff = 50) H 12/02/18 06:04 Consult Discharge Plan - Plan Referrals: Arie Black MD [Primary Care Provider] -
[2018-12-05] MEDS: *HR* HYDROcodone/Acet 5/325 mg TABLET PO PRN (21:46)
[2018-12-05] MEDS ORDERED: Acetaminophen IV 500 MG/50 ML INFUS..BTL IVPB ONE (23:58)
[2018-12-05] MEDS ORDERED: Melatonin 3 MG TABLET PO PRN (23:59)
[2018-12-06] MEDS: Acetaminophen IV 1,000 MG/100 ML INFUS..BTL IVPB SCH ×4 (00:03→20:58)
[2018-12-06] MEDS ORDERED: Acetaminophen 325 MG TABLET PO PRN (00:14)
[2018-12-06] MEDS ORDERED: Albuterol 2.5 MG/3 ML NEBULIZER IH ONE ×2 (00:15→17:09)
[2018-12-06] MEDS ORDERED: Albuterol 2.5 MG/3 ML NEBULIZER IH PRN (00:15)
[2018-12-06] MEDS: *HR* Heparin 5,000 UNIT/ML VIAL SQ SCH ×2 (00:46→21:33)
[2018-12-06 04:07] LABS: Basophils % 0.5 %; Eosinophils # 0.1 K/mcL (0.0-0.6); Eosinophils % 1.6 %; Hematocrit 33.2 % (37.5-50.1); Hemoglobin 10.8 g/dL (12.9-16.9); Immature Granulocytes % 2.8 % (0-4); Lymphocytes # 1.8 K/mcL (0.6-4.6); Lymphocytes % 29.5 %; Mean Corpuscular HGB Conc 32.5 g/dL (31.6-35.5); Mean Corpuscular Hemoglobin 31.5 pg (28.0-33.3); Mean Corpuscular Volume 96.8 fL (83.0-100.0); Mean Platelet Volume 9.3 fL (9.4-12.4); Monocytes # 0.4 K/mcL (0.0-1.3); Monocytes % 6.5 %; Neutrophils # 3.6 K/mcL (1.6-8.9); Platelet Count 314 K/mcL (140-400); Red Blood Count 3.43 M/mcL (4.19-5.50); Red Cell Distribution Width 12.4 % (11.5-14.5); Segmented Neutrophils % 59.1 %; White Blood Count 6.1 K/mcL (4.3-11.1)
[2018-12-06 04:19] LABS: BUN/Creatinine Ratio 27 (6-26); Blood Urea Nitrogen 25 mg/dL (6-20); Calcium 8.3 mg/dL (8.6-10.3); Carbon Dioxide 30 mEq/L (23-29); Chloride 99 mEq/L (98-107); Glucose 234 mg/dL (70-105); Osmolality,Calculated 294 (280-300); Sodium 136 mEq/L (136-145); eGFR For African Americans > 60 (> 60); eGFR For Non-African Americans > 60 (> 60)
--- NOTE | 2018-12-06 06:07 | Orthopedics Progress Note ---
Date of Encounter: 12/06/18 Time of Encounter: 06:04 - Assessment and Plan (1) Cellulitis of right upper extremity Current Visit: Yes Status: Acute Subjective Interval history: S: Checked on the patient. The biggest complaint at this point is pain localized to the volar and radial aspect of the distal forearm region. The other areas have improved significantly since admission. O: Afebrile on the vital signs are stable All wounds are healing nicely without any drainage. All of the proximal cellulitis has completely resolved including around the proximal volar incision. The cellulitis has consolidated to a focal area on the volar radial forearm area just radial limb of the carpal tunnel incision that extends proximal to the volar wrist flexion crease. It is quite tender in this area and puffy. There is still cellulitis of the dorsal ring finger which has improved since admission. Improved flexion/extension to the digits overall. The fingertips are all grossly sensate and well-perfused, and the radial artery pulse is 2+. Toxic granulation noted on labs from yesterday. CRP improved since admission. MRI notable for fluid around the palmaris longus and extensive edema in this area. A: Overall clinical improvement after operative I&D and IV antibiotics There is an area of persistent cellulitis that was consolidated along the volar and radial aspect of the distal forearm. P: Continue antibiotics per the primary team; Given the area of persistent puffiness and erythema and exquisite tenderness around the volar radial forearm region combined with MRI findings of fluid around the palmaris and extensive edema in this area will proceed with incision, drainage, irrigation, and debridement of this area later today. Objective Vital signs: Vital Signs Temp Pulse Resp BP Pulse Ox 12/06/18 03:37 98.5 F 74 16 94/56 94 12/06/18 00:01 98.9 F 83 16 118/73 92 12/05/18 21:20 97.6 F 93 17 129/73 96 12/05/18 14:48 97.8 F 91 18 119/72 96 12/05/18 10:21 97.5 F L 71 17 124/73 97 12/05/18 07:19 98.4 F 84 17 110/62 93 Intake and Output 12/05/18 12/05/18 12/06/18 15:59 23:59 07:59 Intake Total 730 / 1370 290 / 1370 50 / 50 Output Total 1600 / 1850 Balance -870 / -480 290 / -480 50 / 50 Intake: IV Fluids 290 / 640 50 / 50 Maxipime 2,000 MG In Water for 40 / 40 inj. (sterile) 20 ML @ 300 mls/ hr IVP Q12H [facility] Rx#:[id number] Ofirmev 1,000 mg/100 ml 500 mg 50 / 50 In 50 ml @ 200 mls/hr IVPB ONCE ONE Rx#:[id number] Vancocin 1,000 MG In 0.9 % 250 / 500 Sodium Chloride 250 ML @ 167 mls/hr IVPB Q12H [facility] Rx#: [id number] Oral 730 / 730 Output: Urine 1600 / 1850 Other: Meal Lunch Percent of Meal Consumed 100% # Voids 1 Blood Glucose* 180 149 - Labs CBC & BMP: 12/06/18 03:30 12/06/18 03:30 Labs: Abnormal lab results RBC 3.43 M/mcL (4.19-5.50) L 12/06/18 03:30 Hgb 10.8 g/dL (12.9-16.9) L 12/06/18 03:30 Hct 33.2 % (37.5-50.1) L 12/06/18 03:30 MPV 9.3 fL (9.4-12.4) L 12/06/18 03:30 Band Neutrophils % 6.0 % (0-4) H 12/05/18 06:46 Lymphocytes # 0.5 K/mcL (0.6-4.6) L 12/02/18 01:46 Toxic Granulation Present (Not Present) A 12/05/18 06:46 ESR 82 mm/hr (0-10) H 12/06/18 03:30 Sodium 134 mEq/L (136-145) L 12/04/18 05:35 Potassium 5.2 mEq/L (3.5-5.1) H D 12/02/18 01:46 Chloride 97 mEq/L (98-107) L 12/04/18 05:35 Carbon Dioxide 30 mEq/L (23-29) H 12/06/18 03:30 BUN 25 mg/dL (6-20) H 12/06/18 03:30 BUN/Creatinine Ratio 27 (6-26) H 12/06/18 03:30 Glucose 234 mg/dL (70-105) H 12/06/18 03:30 POC Glucose 149 mg/dL (70-99) H 12/05/18 21:19 Calcium 8.3 mg/dL (8.6-10.3) L 12/06/18 03:30 C-Reactive Protein 61 mg/L (Less than 10) H 12/06/18 03:30 Vancomycin Trough 12 mcg/mL (5-10) H 12/06/18 00:08 Urine Opiates Screen Positive ng/mL (Yxtbwb=181) H 12/02/18 06:04 U Marijuana (THC) Screen Positive ng/mL (Cutoff = 50) H 12/02/18 06:04 Consult Discharge Plan - Plan Referrals: Arie Black MD [Primary Care Provider] -
[2018-12-06] MEDS: Lactobacillus 1 EACH CAP.SPRINK PO SCH ×2 (09:57→21:33)
[2018-12-06] MEDS: metroNIDAZOLE 500 MG TABLET PO SCH ×3 (09:57→21:33)
[2018-12-06] MEDS: Insulin LISPRO 300 UNITS/3 ML VIAL SQ SCH ×2 (09:57)
[2018-12-06] MEDS: Cefepime HCl 2,000 MG in Water for inj. (sterile) 20 ML IVP SCH ×2 (09:58→21:34)
[2018-12-06] MEDS: Gabapentin 400 MG CAPSULE PO SCH ×3 (09:58→21:33)
[2018-12-06] MEDS: Insulin DETEMIR 100 UNIT/ML X5UNITS SQ SCH (09:58)
--- NOTE | 2018-12-06 10:06 | Infectious Disease Progress No ---
ID Progress Note Date of Encounter: 12/06/18 Time of Encounter: 10:03 - Subjective Subjective: Patient seen and examined. No acute events noted overnight. Patient continues complaining of persistent right wrist pain at the volar aspect. Denies fevers, chills, rigors. Denies chest pain, shortness of breath, or cough. Denies nausea, vomiting, diarrhea. Reports constipation states he has not had a bowel movement in 2 weeks. Denies abdominal pain or urinary complaints. States his appetite is good, but he is currently nothing by mouth for surgery later today. Denies oral thrush or skin rashes. - Objective CBC & Chem 7: 12/06/18 03:30 12/06/18 03:30 - Exam Vitals: Temp Pulse Resp BP Pulse Ox 97.8 F 83 18 122/75 96 12/06/18 07:44 12/06/18 07:44 12/06/18 07:44 12/06/18 07:44 12/06/18 07:44 Exam: Head: Atraumatic, normal inspection, normocephalic. Eye: EOMI, PERRLA, no scleral icterus noted. ENT: Mucous membranes moist. No odontogenic infection noted. Neck: Normal inspection, no meningismus. Respiratory: Clear to auscultation. No rales, respiratory distress, rhonchi, or wheezes noted. Cardiovascular: Regular rate and rhythm, S1 and S2 audible. No murmurs, rubs, or gallops. GI: Soft, nondistended, normal bowel sounds. Extremities: Right upper extremity dressing clean, dry, and intact. Positive motor and sensation to the distal extremity. Tenderness to palpation. Erythema and swelling receded from previous skin markings. Neurological: Alert, oriented 3, no focal deficits. Psychiatric: normal affect, normal mood. Skin: Dry, intact, warm. Normal color. No rashes. - Assessment and Plan (1) Sepsis Current Visit: Yes Status: Acute The patient had 2 sepsis criteria on admission. Likely secondary to right hand and forearm cellulitis. Improved. Bandemia resolved. Afebrile. Blood cultures drawn at outside hospital are negative 2 sets. Qualifiers: Sepsis type: sepsis due to unspecified organism Qualified Code(s): A41.9 - Sepsis, unspecified organism SNOMED Code(s): 03595441 (2) Cellulitis of right upper extremity Current Visit: Yes Status: Acute Location: Right upper extremity. Etiology: Unclear. Causative organism.: Unclear. Previous cultures positive for Klebsiella, Citrobacter, Morganella Enterococcus faecalis, and MRSA. It is unclear exactly how much IV antibiotics the patient completed after his previous infection as he did not follow-up with infectious disease as recommended. CT of the right hand 12/01/18 showed findings consistent with cellulitis without abscess or osteomyelitis. Orthopedics consult. Status post I&D revision 12/01/[address] Collado. Operative note reviewed. No gross purulence noted. Cultures are negative. Repeat MRI shows status post carpal tunnel release with proximal retraction of the palmaris longus tendon and moderate tenosynovitis about the distal tendon. There is extensive edema within the deep and superficial forearm muscle compartments with mild edema along the fascial planes most pronounced distally. No significant fascial thickening or non-enhancement to suggest necrotizing process. Findings are compatible with reactive versus infectious myositis/fasciitis, however, and necrotizing process is not confirmed. There is diffuse subcutaneous edema compatible with reactive edema versus cellulitis and no well defined drainable fluid collection or osseous abnormality was noted. Repeat ESR and CRP improved. Orthopedics planning repeat I&D later today. Currently on cefepime, Flagyl, and vancomycin. SNOMED Code(s): 963012503 (3) Nicotine use disorder Current Visit: No Status: Acute SNOMED Code(s): 36416664 (4) PTSD (post-traumatic stress disorder) Current Visit: No Status: Acute SNOMED Code(s): 37290539 (5) Tobacco abuse Current Visit: No Status: Acute Nicotine replacement therapy per the primary team. SNOMED Code(s): 190237513 (6) Penicillin allergy Current Visit: Yes Status: Acute Patient states he had anaphylaxis when he was very young. Tolerating cefepime currently and tolerated Rocephin in the past without a problem. SNOMED Code(s): 70554006 (7) Diabetes Current Visit: Yes Status: Chronic Recommend aggressive glucose monitoring and control to promote wound healing and prevent reinfection. Patient noncompliant with Accu-Cheks, but is agreeable to do twice daily Accu- Cheks. Management per the primary team. 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 Discussed with nursing. Management per the primary team. Qualifiers: Constipation type: unspecified constipation type Qualified Code(s): K59.00 - Constipation, unspecified SNOMED Code(s): 75178413 - Recommendations Recommendations: Await repeat Intra-Op findings. Will ask ortho to send for AFB and fungal cultures in addition to standard aerobic and anaerobic. Wound care per the orthopedics team. Bowel regimen per the primary team. Continue cefepime 2 g IV every 12 hours. Continue Flagyl 500 mg 3 times a day, but switched to by mouth. Continue vancomycin IV. Pharmacy to dose. Goal trough approximately 15. Duration of treatment with the clinical picture. Monitor renal function and for drug toxicity and dose adjust antibiotics. Contact precautions per hospital policy. Consult Discharge Plan - Plan Referrals: Arie Black MD [Primary Care Provider] - - Attending Attestation I have personally performed a face to face evaluation on this patient. I have reviewed and agree with the care plan. History and Exam by me shows: Assessment and plan: 1.Sepsis 2.Cellulitis of the right upper extremity causative organism not clear previous cultures were positive for Klebsiella, Citrobacter, Morganella, enterococcus and MRSA 3.status post I&D by Dr. Collado 12/01/2018 4.PTSD 5.Nicotine use disorder Recommendations Await intraoperative cultures to finalize. Wound care per the orthopedics team. Continue cefepime 2 g IV every 12 hours. Continue Flagyl 500 mg 3 times a day, but switched to by mouth. Continue vancomycin IV. Pharmacy to dose. Goal trough approximately 15. Duration of treatment with the clinical picture. Monitor renal function and for drug toxicity and dose adjust antibiotics. Contact precautions per hospital policy.
--- NOTE | 2018-12-06 13:31 | Internal Med Progress Note ---
Hospitalist Progress Note - Encounter Date of Encounter: 12/06/18 Time of Encounter: 12:15 - Subjective Interval History: Continues to complain of R distal forearm discomfort. Also refusing Accu-Cheks before meals and at bedtime despite understanding the risk of hyperglycemia and poorly controlled infection which can potentially lead to limb loss. No fever/chills or nausea/vomiting. - Exam Vitals: Temp Pulse Resp BP Pulse Ox 98.6 F 73 16 123/71 95 12/06/18 10:05 12/06/18 10:05 12/06/18 10:05 12/06/18 10:05 12/06/18 10:05 Exam: General: Patient is alert, no acute distress, oriented x 3 Respiratory: Good respiratory effort. Normal breath sounds. No wheezing or crackles. Cardiovascular: Regular rate and rhythm. s1 and s2 normal No clicks, rubs, gall ops, or murmurs. No pedal edema Abdomen: Abdomen is soft, nontender. Bowel sounds are present Musculoskeletal: Spontaneously moving all extremities Skin: Right forearm dressing c/d/i. Able to perform flexion/extension of the digits without significant difficulty Neuro: Alert oriented x 3 normal cranial nerves, no focal deficits - Assessment and Plan (1) Sepsis Current Visit: Yes Status: Acute Assessment and Plan: secondary to R UE cellulitis. Prior cultures positive for Klebsiella, C itrobacter, Morganella Enterococcus faecalis, and MRSA. Underwent I&D on 12/01, intraop wound culture was unremarkable. Clinically improving on Vanco/cefepime/Flagyl but has persistent cellulitis that was consolidated along the volar and radial aspect of the distal forearm appreciate ortho input, for repeat I&D today follow with ID for abx (2) Cellulitis of right upper extremity Current Visit: Yes Status: Acute Assessment and Plan: as above (3) Diabetes Current Visit: Yes Status: Chronic Assessment and Plan: Patient refuses accuchecks and sliding scale AC+HS despite understanding the risk of poorly controlled hyperglycemia and possibly worsening sepsis, limb loss, and even after lengthy discussion, pt is agreeable for at least accuchecks BID. It also appears that pt will not be able to afford insulin other than 70/30 will switch his insulin to 70/30 25U BID and perform accuchecks BID as well DVT Prophylaxis: SQ heparin - Time Spent with Patient Total time spent is greater than 50% in coordination of care (as documented) at patient's floor/unit and/or counseling patient: 25 - 35 minutes Internal Medicine: Result - Labs CBC & Chem 7: 12/06/18 03:30 12/06/18 03:30 Labs: Short CBC 12/06/18 Range/Units 03:30 WBC 6.1 (4.3-11.1) K/mcL Hgb 10.8 L (12.9-16.9) g/dL Hct 33.2 L (37.5-50.1) % Plt Count 314 (140-400) K/mcL Neutrophils # 3.6 (1.6-8.9) K/mcL BMP 12/06/18 03:30 Sodium 136 Potassium 4.0 Chloride 99 Carbon Dioxide 30 H BUN 25 H Creatinine 0.93 Glucose 234 H Calcium 8.3 L - Impressions Impressions Tibia/Fibula X-Ray 12/05/18 00:00 IMPRESSION: Negative study. D/ / Lala Dias Cha, MD / Lala Dias Cha, MD Interpreting Provider: Lala Dias Cha, MD Forearm MRI 12/05/18 19:08 IMPRESSION: 1. Status post carpal tunnel release with proximal retraction of the palmaris longus tendon and moderate tenosynovitis about the distal tendon. 2. Extensive edema within the deep and superficial forearm muscle compartments with mild edema along the fascial planes most pronounced distally. No significant fascial thickening or non-enhancement to suggest necrotizing process. Findings are compatible with reactive versus infectious myositis/fasciitis, however, a necrotizing process is not confirmed. 3. Diffuse subcutaneous edema compatible with reactive edema versus cellulitis. No well-defined drainable fluid collection. 4. No acute osseous abnormality. The findings were sent to the [facility] at 9:51 pm on 12/05/2018to be communicated to a licensed caregiver. 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
[2018-12-06] MEDS ORDERED: Insulin NPH/REG 70/30 100 UNIT/ML (x5UNIT) SQ SCH (16:30)
[2018-12-06] MEDS ORDERED: *HR* Propofol 200 MG/20 ML VIAL IVP ONE (16:41)
[2018-12-06] MEDS ORDERED: Lidocaine -MPF 2% 2 ML VIAL ONE (16:41)
[2018-12-06] MEDS ORDERED: Lidocaine/EPI 1:100k 1% 20 ML VIAL ONE (16:54)
[2018-12-06] MEDS ORDERED: Bupivacaine/EPI 1:200k 0.5%PF 10 ML VIAL ONE (16:54)
--- NOTE | 2018-12-06 17:13 | Anesthesia Evaluation PreOp ---
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 BUNDLER History: Denies Any Significant HX Other Medical History: Diabetes Type II, Other (Arthritis) Anesthesia History: No Prior Anesthetic Complications Alcohol Use: occasionally Drug use: marijuana Medications and Allergies Albuterol Neb [Proventil Neb] 2.5 mg IH TID PRN 10/04/18 [History] Albuterol Sulfate [Ventolin Hfa] 2 puff IH Q4H PRN 10/04/18 [History] Aspirin [Lo-Dose Aspirin EC] 81 mg PO DAILY 10/04/18 [History] Dapagliflozin Propanediol [Farxiga] 10 mg PO DAILY 10/04/18 [History] Gabapentin 800 mg PO TID 10/04/18 [History] Insulin Glargine [Lantus] 15 unit SQ DAILY 10/04/18 [History] Apple Cider Vinegar 30 ml PO BID 12/02/18 [History] Cholecalciferol (Vitamin D3) [Vitamin D] 2,000 unit PO DAILY 12/02/18 [History] Multivit-Min/FA/Lycopen/Lutein [Centrum Silver Tablet] 1 tab PO DAILY 12/02/18 [History] Sildenafil Citrate 100 mg PO AD PRN 12/02/18 [History] Tamsulosin HCl [Flomax] 0.4 mg PO HS 12/02/18 [History] Allergy/AdvReac Type Severity Reaction Status Date / Time Penicillins Allergy Anaphylaxis Verified 12/02/18 13:07 - Meds/Allergy Pre-op Review Medications Reviewed: Yes Allergies Reviewed: Yes Beta Blockers on Current Med List: No Anesthesia Results - Labs 12/06/18 03:30 12/06/18 03:30 Anesthesia Exam O2 Sat O2 Sat by Pulse Oximetry 96 O2 Sat by Pulse Oximetry 95 O2 Sat by Pulse Oximetry 96 O2 Sat by Pulse Oximetry 94 O2 Sat by Pulse Oximetry 92 O2 Sat by Pulse Oximetry 96 Vital Signs Temp Pulse Resp BP Pulse Ox 100.5 F H 93 18 106/66 94 12/01/18 05:23 12/01/18 05:23 12/01/18 05:23 12/01/18 05:23 12/01/18 05:23 Height: 5'8 Weight: 167 lbs NPO (# of Hours): MN Pain Scale: 0 - HEENT Pupil (Motor): Pupils equal, EOMI Mallampati: II Oral Opening: Greater than 3 - BROOM BUNDLER LOC: Oriented BROOM BUNDLER Motor: Normal RUE, Normal LUE, Normal RLE, Normal LLE, Normal Face BROOM BUNDLER Sensory: Normal: RUE, LUE, RLE, LLE, Face - Cardiac Rhythm: Regular Murmur: None JVD: No Carotid Bruit: No - Pulmonary Breath Sounds: bilateral Clear Respiratory Effort: Symmetrical Anesthesia Assess/Plan ASA Score: 3 (Hyperlipidemia DM Asthma COPD) Level of consciousness: Cooperative, Oriented Anesthetic Plan: General Autologous Blood: No Monitoring Plan: Standard Monitors Recovery Plan: PACU (Discussed GA, agrees to proceed)
[2018-12-06] MEDS ORDERED: Albuterol 2.5 MG/3 ML NEBULIZER ONE (17:17)
[2018-12-06] MEDS ORDERED: Acetaminophen IV 1,000 MG/100 ML INFUS..BTL ONE (17:20)
[2018-12-06] MEDS ORDERED: Famotidine 20 MG/2 ML VIAL ONE (17:20)
[2018-12-06] MEDS ORDERED: *HR* FentaNYL (PF) 100 MCG/2 ML VIAL ONE (17:22)
[2018-12-06] MEDS ORDERED: *HR* Midazolam HCl 5 MG/5 ML VIAL IVP ONE (17:22)
[2018-12-06] MEDS ORDERED: Dexamethasone 4 MG/ML VIAL ONE (17:47)
--- NOTE | 2018-12-06 18:23 | Orthopedic Operative Note ---
Date of procedure: 12/06/18 Procedure: OPERATIVE REPORT SURGEON: Henry Tate MD PREOPERATIVE DIAGNOSIS: Persistent right distal volar and radial forearm cellulitis with concern for underlying abscess POSTOPERATIVE DIAGNOSIS: Deep abscess in the right distal volar radial forearm region PROCEDURE: Incision, drainage, irrigation, and debridement of the right distal volar forearm abscess ANESTHESIA: Gen. anesthesia SPECIMENS: Two sets of swabs for aerobic, anaerobic, acid-fast, and fungal cultures PREOPERATIVE NOTE The surgical plan was reviewed with the patient. The risks, benefits, alternatives, and potential complications of this procedure were discussed with the patient including injury to veins, arteries, nerves, tendons, ligaments, and bone. Also discussed were the risks of infection, bleeding, pain, blood clots, the possible need for a blood transfusion, the possible need for further procedures, heart attack, stroke, and . Additional risks include persistent infection and the need for further debridements. All of this was explained in simple terms, and the patient verbalized understanding and wished to proceed. Consent was given to proceed with surgery. PROCEDURE: The patient was seen in the preoperative holding area where the identify and the consent were confirmed. The right forearm was marked. Final questions were answered. The patient was brought back to the operating room and placed supine on the operating room table. A huddle was performed with the patient and all vital surgical team members confirming patient identity, the correct procedure, and the correct operative site. Gen. anesthesia was administered. The operative extremity was prepped and draped in the usual sterile fashion. A surgical time out was performed immediately preceding the incision with all personnel in the operating room to confirm patient identity, the correct operative site and extremity, correct radiographic studies, availability of appropriate surgical equipment, and agreement on the planned procedure. The tourniquet was inflated and the previous carpal tunnel incision was spread open after removing the stitches. It was extended proximally about 4 cm and dissection proceeded through the subcutaneous tissue beginning proximally in the new area of dissection. Antebrachial fascia was opened and spread distally. The radial flap was elevated after carefully identifying and protecting the median nerve. The palmaris longus was identified and there was a tenosynovial sheath that was spread open decompressing copious amounts of purulent material which was swabbed for culture. This did spread into the deep space of the volar forearm. The palmaris longus itself had significant degeneration and wish sharply debrided. Dissection proceeded bluntly radially to identify the flexor carpi radialis which did not have any significant appearance of infection after opening the tenosynovial sheath. There was further necrotic tissue adhered to the fascia which was sharply debrided and the radial distal portion of the forearm fascia. A second set of swabs were performed in this area. There is a significant amount of nonpurulent tenosynovitis within the volar wrist flexor tendons which was sharply debrided all taking care to protect the median nerve. The interval between the flexor digitorum profundus and flexor digitorum superficialis muscle bellies was dissected bluntly and there was no purulence in this area. A total of 6 L of saline were flushed through the wound and the wound was loosely closed over 2 [place] drains, one tunneled through the radial flap to a small 1 cm incision. The other I&D sites were clean in appearance without concern for any persistent underlying infection and therefore were left intact. A soft, sterile dressing was applied. The instrument, sponge, and needle counts were correct after wound closure. POST OPERATIVE PLAN: Continue IV antibiotics per the primary team and follow clinically. Was there an executive marketing assistant present: No Estimated blood loss (cc): 1
[2018-12-06] MEDS ORDERED: *HR* OxyCODONE Immed Rel 5 MG TABLET PO PRN (18:49)
[2018-12-06] MEDS ORDERED: *HR* HYDROmorphone (PF) 1 MG/ML SYRINGE IVP PRN (18:52)
--- NOTE | 2018-12-06 19:49 | Anesthesia Evaluation Post Op ---
Date of Encounter: 12/06/18 Time of Encounter: 19:50 - Vital Signs Vital Signs: Vital Signs/O2 Sat/Glucose, Most Current Temp Pulse Resp BP Pulse Ox 12/06/18 19:25 98.1 F 73 18 158/83 99 12/06/18 19:15 71 16 151/76 97 12/06/18 19:05 68 16 159/99 93 12/06/18 18:55 97.6 F 68 16 171/78 95 12/06/18 18:45 69 14 157/75 97 12/06/18 18:35 70 16 115/67 93 12/06/18 18:25 97.4 F L 70 18 102/54 97 12/06/18 15:49 98.5 F 81 19 108/69 96 - Lungs Lungs: Clear Ascult./Percussion - Airway Airway: Non-obstructed - Cardiovascular Regular Rate - Mental Status Mental Status: Alert & Oriented, Answers Appropriately - Pain Pain Scale: 0 - Nausea Vomiting Nausea Vomiting: Not Present - Hydration Hydration: Ice chips, Has not voided - Discharge PostOp Status: Transfer Patient to floor
[2018-12-06] MEDS: *HR* HYDROcodone/Acet 5/325 mg TABLET PO PRN (21:33)
[2018-12-06] MEDS: Aspirin Enteric Coated 81 MG Tablet PO SCH (21:33)
[2018-12-06] MEDS ORDERED: Gadolinium Contrast Agent (WT Based) IV PRN (22:01)
[2018-12-06] MEDS ORDERED: Dextrose Gel 15 GM/37.5 ML TUBE PO PRN ×2 (22:01)
[2018-12-06] MEDS ORDERED: *HR* Dextrose 50 % in Water (Syg) 50 ML SYRINGE IVP PRN (22:01)
[2018-12-06] MEDS ORDERED: Naloxone 0.4 MG/ML INJ IVP PRN (22:01)
[2018-12-06] MEDS ORDERED: D5% in Water 1,000 ML IVC PRN (22:01)
[2018-12-06] MEDS ORDERED: Ringers Solution, Lactated 1,000 ML IVC SCH (22:01)
[2018-12-07] MEDS ORDERED: *HR* HYDROcodone/Acet 5/325 mg TABLET PO PRN (00:21)
[2018-12-07] MEDS ORDERED: Melatonin 3 MG TABLET PO PRN (00:22)
[2018-12-07] MEDS: Acetaminophen IV 1,000 MG/100 ML INFUS..BTL IVPB SCH ×4 (00:49→18:24)
[2018-12-07] MEDS: *HR* Heparin 5,000 UNIT/ML VIAL SQ SCH ×2 (05:02→18:25)
--- NOTE | 2018-12-07 07:08 | Orthopedics Progress Note ---
Date of Encounter: 12/07/18 Time of Encounter: 07:05 - Assessment and Plan (1) Cellulitis of right upper extremity Current Visit: Yes Status: Acute Subjective Interval history: S: Expected postoperative pain to the volar forearm region. No complaints otherwise O: AFVSS Right upper extremity dressing taken down Anselmo drains in place, with serosanguineous drainage No purulence Significant improvement in the swelling to the volar radial forearm region seen preoperatively Dissipation of the erythema Mild persistent erythema to the ring finger, with improvement Improved swelling to the hand and digits including the ring finger He can grossly flex and extend the digits A: Post I&D of the right upper extremity P: Follow intraoperative cultures We will pull the [place] drains tomorrow Motion exercises to reduce the risk of stiffness Elevation of the right upper extremity Objective Vital signs: Vital Signs Temp Pulse Resp BP Pulse Ox 12/07/18 03:56 97.5 F L 80 17 105/70 96 12/06/18 22:30 98.5 F 89 18 108/65 100 12/06/18 21:40 97.9 F 87 18 129/87 97 12/06/18 20:45 97.6 F 71 18 127/70 98 12/06/18 20:10 97.6 F 69 18 131/71 97 12/06/18 19:45 97.4 F L 73 18 125/60 96 12/06/18 19:25 98.1 F 73 18 158/83 99 12/06/18 19:15 71 16 151/76 97 12/06/18 19:05 68 16 159/99 93 12/06/18 18:55 97.6 F 68 16 171/78 95 12/06/18 18:45 69 14 157/75 97 12/06/18 18:35 70 16 115/67 93 12/06/18 18:25 97.4 F L 70 18 102/54 97 12/06/18 15:49 98.5 F 81 19 108/69 96 12/06/18 10:05 98.6 F 73 16 123/71 95 12/06/18 07:44 97.8 F 83 18 122/75 96 Intake and Output 12/06/18 12/06/18 12/07/18 15:59 23:59 07:59 Intake Total 120 / 420 250 / 250 Output Total 1000 / 1630 630 / 1630 Balance -880 / -1210 -630 / -1210 250 / 250 Intake: IV Fluids 120 / 420 250 / 250 Maxipime 2,000 MG In Water for 20 inj. (sterile) 20 ML @ 300 mls/ hr IVP Q12H [facility] Rx#:[id number] Ofirmev 1,000 mg/100 ml 1,000 100 / 100 mg In 100 ml @ 400 mls/hr IVPB Q6HR [facility] Rx#:[id number] Vancocin 1,000 MG In 0.9 % 250 / 250 Sodium Chloride 250 ML @ 167 mls/hr IVPB Q12H [facility] Rx#: [id number] Output: Urine 1000 / 1625 625 / 1625 Estimated Blood Loss 5 / Other: # Voids 1 Weight 76.5 kg Blood Glucose* 222 188 Patient Weight 12/07/18 23:59 Weight 76.5 kg - Labs CBC & BMP: 12/06/18 03:30 12/06/18 03:30 Labs: Abnormal lab results RBC 3.43 M/mcL (4.19-5.50) L 12/06/18 03:30 Hgb 10.8 g/dL (12.9-16.9) L 12/06/18 03:30 Hct 33.2 % (37.5-50.1) L 12/06/18 03:30 MPV 9.3 fL (9.4-12.4) L 12/06/18 03:30 Band Neutrophils % 6.0 % (0-4) H 12/05/18 06:46 Lymphocytes # 0.5 K/mcL (0.6-4.6) L 12/02/18 01:46 Toxic Granulation Present (Not Present) A 12/05/18 06:46 ESR 82 mm/hr (0-10) H 12/06/18 03:30 Sodium 134 mEq/L (136-145) L 12/04/18 05:35 Potassium 5.2 mEq/L (3.5-5.1) H D 12/02/18 01:46 Chloride 97 mEq/L (98-107) L 12/04/18 05:35 Carbon Dioxide 30 mEq/L (23-29) H 12/06/18 03:30 BUN 25 mg/dL (6-20) H 12/06/18 03:30 BUN/Creatinine Ratio 27 (6-26) H 12/06/18 03:30 Glucose 234 mg/dL (70-105) H 12/06/18 03:30 POC Glucose 149 mg/dL (70-99) H 12/05/18 21:19 Calcium 8.3 mg/dL (8.6-10.3) L 12/06/18 03:30 C-Reactive Protein 61 mg/L (Less than 10) H 12/06/18 03:30 Vancomycin Trough 12 mcg/mL (5-10) H 12/06/18 00:08 Urine Opiates Screen Positive ng/mL (Ckutdq=013) H 12/02/18 06:04 U Marijuana (THC) Screen Positive ng/mL (Cutoff = 50) H 12/02/18 06:04 Consult Discharge Plan - Plan Referrals: Arie Black MD [Primary Care Provider] -
[2018-12-07] MEDS ORDERED: Insulin NPH/REG 70/30 100 UNIT/ML (x5UNIT) SQ SCH ×3 (07:30→18:00)
[2018-12-07] MEDS ORDERED: Insulin NPH/REG 70/30 100 UNIT/ML (x5UNIT) SQ ONE (08:30)
[2018-12-07] MEDS: Lactobacillus 1 EACH CAP.SPRINK PO SCH ×2 (10:00→20:19)
[2018-12-07] MEDS: Aspirin Enteric Coated 81 MG Tablet PO SCH (10:00)
[2018-12-07] MEDS: Gabapentin 400 MG CAPSULE PO SCH ×3 (10:00→20:19)
[2018-12-07] MEDS: metroNIDAZOLE 500 MG TABLET PO SCH ×3 (10:00→20:20)
[2018-12-07] MEDS: Cefepime HCl 2,000 MG in Water for inj. (sterile) 20 ML IVP SCH ×2 (10:02→20:25)
--- NOTE | 2018-12-07 10:37 | Internal Med Progress Note ---
Hospitalist Progress Note - Encounter Date of Encounter: 12/07/18 Time of Encounter: 08:00 - Subjective Interval History: Underwent second I&D of R UE yesterday uneventfully. Denies any fever/chills or nausea/vomiting. RUE discomfort is bearable. - Exam Vitals: Temp Pulse Resp BP Pulse Ox 97.9 F 82 16 118/72 96 12/07/18 07:40 12/07/18 07:40 12/07/18 07:40 12/07/18 07:40 12/07/18 07:40 Exam: General: Patient is alert, no acute distress, oriented x 3 Respiratory: Good respiratory effort. Normal breath sounds. No wheezing or crackles. Cardiovascular: Regular rate and rhythm. s1 and s2 normal No clicks, rubs, gallops, or murmurs. No pedal edema Abdomen: Abdomen is soft, nontender. Bowel sounds are present Musculoskeletal: Spontaneously moving all extremities Skin: Right forearm dressing c/d/i. Able to perform flexion/extension of the digits without significant difficulty Neuro: Alert oriented x 3 normal cranial nerves, no focal deficits - Assessment and Plan (1) Sepsis Current Visit: Yes Status: Acute Assessment and Plan: secondary to R UE cellulitis. Prior cultures positive for Klebsiella, Citrobacter, Morganella Enterococcus faecalis, and MRSA. Underwent I&D on 12/01, intraop wound culture was unremarkable. Had repeat I&D on 12/06 when he was found to have deep abscess in the right distal volar radial forearm region Appreciate ID input, on Vanco/cefepime/Flagyl. Follow up on intraop wound culture from 12/06 (2) Abscess of right hand Current Visit: Yes Status: Acute Assessment and Plan: as above (3) Cellulitis of right upper extremity Current Visit: Yes Status: Acute Assessment and Plan: as above (4) Diabetes Current Visit: Yes Status: Chronic Assessment and Plan: Patient refuses accuchecks and sliding scale AC+HS despite understanding the risk of poorly controlled hyperglycemia and possibly worsening sepsis, limb loss, and even blood glucose was again elevated at 581 this morning. continues to refuse accuchecks and sliding scale coverage AC+HS increase insulin 70/30 to 40U BID DVT Prophylaxis: SQ heparin - Time Spent with Patient Total time spent is greater than 50% in coordination of care (as documented) at patient's floor/unit and/or counseling patient: 25 - 35 minutes Internal Medicine: Result - Labs CBC & Chem 7: 12/06/18 03:30 12/06/18 03:30 Consult Discharge Plan - Plan Referrals: Arie Black MD [Primary Care Provider] - (1) Sepsis Qualifiers: Sepsis type: sepsis due to unspecified organism Qualified Code(s): A41.9 - Sepsis, unspecified organism (4) Diabetes Qualifiers: Diabetes mellitus type: type 2 Diabetes mellitus intermediate designer insulin use: with intermediate designer use Diabetes mellitus complication status: with neurologic complications Diabetes mellitus complication detail: with polyneuropathy Q ualified Code(s): E11.42 - Type 2 diabetes mellitus with diabetic polyneuropathy; Z79.4 - shelter (current) use of insulin
--- NOTE | 2018-12-07 11:13 | Infectious Disease Progress No ---
ID Progress Note Date of Encounter: 12/07/18 Time of Encounter: 11:11 - Subjective Subjective: Patient seen and examined. No acute events noted overnight. States pain in the right wrist persists, but is better today. Denies fevers, chills, rigors. Denies chest pain, shortness of breath, or cough. Denies nausea, vomiting, diarrhea. Reports constipation states he has not had a bowel movement in 2 weeks. Denies abdominal pain or urinary complaints. States his appetite is good, but we are not feeding him enough. Denies oral thrush or skin rashes. Per nursing, patient is noncompliant with accu-checks, bed alarms, surgical dressing recommendations. Patient advocate and senior storage administrator cotton breeder were in to see the patient this morning per his request. - Objective CBC & Chem 7: 12/08/18 00:39 12/08/18 00:39 - Exam Vitals: Temp Pulse Resp BP Pulse Ox 97.9 F 82 16 118/72 96 12/07/18 07:40 12/07/18 07:40 12/07/18 07:40 12/07/18 07:40 12/07/18 07:40 Exam: Head: Atraumatic, normal inspection, normocephalic. Eye: EOMI, PERRLA, no scleral icterus noted. ENT: Mucous membranes moist. No odontogenic infection noted. Neck: Normal inspection, no meningismus. Respiratory: Clear to auscultation. No rales, respiratory distress, rhonchi, or wheezes noted. Cardiovascular: Regular rate and rhythm, S1 and S2 audible. No murmurs, rubs, or gallops. GI: Soft, nondistended, normal bowel sounds. Extremities: Right upper extremity dressing intact with small amount of bloody drainage noted. Positive motor and sensation to the distal extremity. Tenderness to palpation. Erythema and swelling receded from previous skin markings. ROM not assessed. Neurological: Alert, oriented 3, no focal deficits. Psychiatric: normal affect, normal mood. Skin: Dry, intact, warm. Normal color. No rashes. - Assessment and Plan (1) Sepsis Status: Acute The patient had 2 sepsis criteria on admission. Likely secondary to right hand and forearm cellulitis. Resolved. Bandemia resolved. Afebrile. Blood cultures drawn at outside hospital are negative 2 sets. Qualifiers: Sepsis type: sepsis due to unspecified organism Qualified Code(s): A41.9 - Sepsis, unspecified organism SNOMED Code(s): 38321849 (2) Cellulitis of right upper extremity Status: Acute Location: Right upper extremity. Etiology: Unclear. Causative organism.: Unclear. Previous cultures positive for Klebsiella, Citrobacter, Morganella Enterococcus faecalis, and MRSA. It is unclear exactly how much IV antibiotics the patient completed after his previous infection as he did not follow-up with infectious disease as recommended. CT of the right hand 12/01/18 showed findings consistent with cellulitis without abscess or osteomyelitis. Orthopedics consult. Status post I&D revision 12/01/[address] Collado. Operative note reviewed. No gross purulence noted. Cultures are negative. Repeat MRI shows status post carpal tunnel release with proximal retraction of the palmaris longus tendon and moderate tenosynovitis about the distal tendon. There is extensive edema within the deep and superficial forearm muscle compartments with mild edema along the fascial planes most pronounced distally. No significant fascial thickening or non-enhancement to suggest necrotizing process. Findings are compatible with reactive versus infectious myositis/fasciitis, however, and necrotizing process is not confirmed. There is diffuse subcutaneous edema compatible with reactive edema versus cellulitis and no well defined drainable fluid collection or osseous abnormality was noted. Repeat ESR and CRP improved. Status post repeat I&D and I&D of the right distal pole R radial forearm abscess 12/06/[address] Collado. Operative note reviewed. Deep abscess noted. Cultures are pending. Currently on cefepime, Flagyl, and vancomycin. SNOMED Code(s): 072676595 (3) Nicotine use disorder Status: Acute SNOMED Code(s): 11775230 (4) PTSD (post-traumatic stress disorder) Status: Acute SNOMED Code(s): 10524752 (5) Tobacco abuse Status: Acute Nicotine replacement therapy per the primary team. SNOMED Code(s): 700330787 (6) Penicillin allergy Status: Acute Patient states he had anaphylaxis when he was very young. Tolerating cefepime currently and tolerated Rocephin in the past without a problem. SNOMED Code(s): 51598994 (7) Diabetes Status: Chronic Recommend aggressive glucose monitoring and control to promote wound healing and prevent reinfection. Patient noncompliant with Accu-Cheks, but is agreeable to do twice daily Accu- Cheks. Management per the primary team. Qualifiers: Diabetes mellitus type: type 2 Diabetes mellitus rn team leader insulin use: with rn team leader 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 SNOMED Code(s): 77138511 (8) Constipation Status: Acute The patient states she has not had a bowel movement in 2 weeks. Discussed with nursing. Management per the primary team. Qualifiers: Constipation type: unspecified constipation type Qualified Code(s): K59.00 - Constipation, unspecified SNOMED Code(s): 20905471 - Recommendations Recommendations: Await repeat Intra-Op cultures. Wound care per the orthopedics team. Bowel regimen per the primary team. Continue cefepime 2 g IV every 12 hours. Continue Flagyl 500 mg 3 times a day, but switched to by mouth. Continue vancomycin IV. Pharmacy to dose. Goal trough approximately 15. Duration of treatment with the clinical picture. Monitor renal function and for drug toxicity and dose adjust antibiotics. Contact precautions per hospital policy. Consult Discharge Plan - Plan Instructions: Cellulitis (DC), Diabetes Mellitus Type 2 in Adults (DC), Sepsis (DC) Referrals: Glenna Maier CNP [Advanced Practice Nurse] - Arie Black MD [Primary Care Provider] - Henry Tate MD [Partnered Physician] - Prescriptions: metroNIDAZOLE [Flagyl] 500 mg PO TID 14 Days #42 tablet levoFLOXacin [Levaquin] 750 mg PO DAILY 14 Days #14 tablet Linezolid [Zyvox] 600 mg PO BID 14 Days #28 tablet - Attending Attestation I have personally performed a face to face evaluation on this patient. I have reviewed and agree with the care plan. History and Exam by me shows: Assessment and plan: 1.Sepsis 2.Cellulitis of the right upper extremity causative organism not clear previous cultures were positive for Klebsiella, Citrobacter, Morganella, enterococcus and MRSA 3.status post I&D by Dr. Collado 12/01/2018 4.PTSD 5.Nicotine use disorder Recommendations: Await repeat Intra-Op cultures. Wound care per the orthopedics team. Bowel regimen per the primary team. Continue cefepime 2 g IV every 12 hours. Continue Flagyl 500 mg 3 times a day, but switched to by mouth. Continue vancomycin IV. Pharmacy to dose. Goal trough approximately 15. Duration of treatment with the clinical picture. Monitor renal function and for drug toxicity and dose adjust antibiotics. Contact precautions per hospital policy.
[2018-12-07] MEDS: Insulin NPH/REG 70/30 100 UNIT/ML (x5UNIT) SQ SCH (16:34)
[2018-12-08 01:26] LABS: Basophils % 0.2 %; Eosinophils # 0.1 K/mcL (0.0-0.6); Eosinophils % 1.2 %; Hematocrit 33.8 % (37.5-50.1); Immature Granulocytes % 0.8 % (0-4); Lymphocytes # 2.4 K/mcL (0.6-4.6); Lymphocytes % 25.9 %; Mean Corpuscular HGB Conc 32.5 g/dL (31.6-35.5); Mean Corpuscular Hemoglobin 31.1 pg (28.0-33.3); Mean Corpuscular Volume 95.5 fL (83.0-100.0); Mean Platelet Volume 9.4 fL (9.4-12.4); Monocytes # 0.8 K/mcL (0.0-1.3); Monocytes % 8.1 %; Neutrophils # 5.9 K/mcL (1.6-8.9); Platelet Count 372 K/mcL (140-400); Red Blood Count 3.54 M/mcL (4.19-5.50); Red Cell Distribution Width 12.6 % (11.5-14.5); Segmented Neutrophils % 63.8 %
[2018-12-08 01:29] LABS: White Blood Count 9.3 K/mcL (4.3-11.1)
[2018-12-08 01:46] LABS: BUN/Creatinine Ratio 30 (6-26); Blood Urea Nitrogen 27 mg/dL (6-20); C-Reactive Protein 55 mg/L (Less than 10); Carbon Dioxide 28 mEq/L (23-29); Chloride 99 mEq/L (98-107); Glucose 173 mg/dL (70-105); Osmolality,Calculated 289 (280-300); Potassium 4.7 mEq/L (3.5-5.1); Sodium 135 mEq/L (136-145); eGFR For African Americans > 60 (> 60); eGFR For Non-African Americans > 60 (> 60)
[2018-12-08] MEDS: Acetaminophen IV 1,000 MG/100 ML INFUS..BTL IVPB SCH ×2 (02:00→05:35)
[2018-12-08] MEDS: *HR* Heparin 5,000 UNIT/ML VIAL SQ SCH (05:34)
--- NOTE | 2018-12-08 07:05 | Orthopedics Progress Note ---
Date of Encounter: 12/08/18 Time of Encounter: 07:01 - Assessment and Plan (1) Cellulitis of right upper extremity Current Visit: Yes Status: Acute Subjective Interval history: S: Improving pain to the right forearm. O: AFVSS Right upper extremity dressing taken down Anselmo drain pulled Similar swelling to the volar radial forearm with improved erythema and less tenderness. Erythema essentially resolved to the ring finger. He can grossly flex and extend the digits with moderate stiffness Fingertips sensate and well perfused. Cultures pending A: Post I&D of the right upper extremity P: Follow intraoperative cultures Continue IV antibiotics Motion exercises to reduce the risk of stiffness Elevation of the right upper extremity Objective Vital signs: Vital Signs Temp Pulse Resp BP Pulse Ox 12/07/18 22:11 98.0 F 80 17 112/68 96 12/07/18 19:00 98.6 F 90 16 110/75 98 12/07/18 11:12 98.2 F 80 16 132/86 94 12/07/18 07:40 97.9 F 82 16 118/72 96 Intake and Output 12/07/18 12/07/18 12/08/18 15:59 23:59 07:59 Intake Total 750 / 1000 Output Total 700 / 700 Balance 50 / 300 Intake: IV Fluids 270 / 520 Maxipime 2,000 MG In Water for inj. (sterile) 20 ML @ 300 mls/ hr IVP Q12H [facility] Rx#:[id number] Vancocin 1,000 MG In 0.9 % 250 / 500 Sodium Chloride 250 ML @ 167 mls/hr IVPB Q12H [facility] Rx#: [id number] Oral 480 / 480 Output: Urine 700 / 700 Other: Meal Breakfast Percent of Meal Consumed 100% # Voids 1 Weight 76.7 kg Blood Glucose* 383 354 Patient Weight 12/08/18 23:59 Weight 76.7 kg - Labs CBC & BMP: 12/08/18 00:39 12/08/18 00:39 Labs: Abnormal lab results RBC 3.54 M/mcL (4.19-5.50) L 12/08/18 00:39 Hgb 11.0 g/dL (12.9-16.9) L 12/08/18 00:39 Hct 33.8 % (37.5-50.1) L 12/08/18 00:39 MPV 9.3 fL (9.4-12.4) L 12/06/18 03:30 Band Neutrophils % 6.0 % (0-4) H 12/05/18 06:46 Lymphocytes # 0.5 K/mcL (0.6-4.6) L 12/02/18 01:46 Toxic Granulation Present (Not Present) A 12/05/18 06:46 ESR 94 mm/hr (0-10) H 12/08/18 00:39 Sodium 135 mEq/L (136-145) L 12/08/18 00:39 Potassium 5.2 mEq/L (3.5-5.1) H D 12/02/18 01:46 Chloride 97 mEq/L (98-107) L 12/04/18 05:35 Carbon Dioxide 30 mEq/L (23-29) H 12/06/18 03:30 BUN 27 mg/dL (6-20) H 12/08/18 00:39 BUN/Creatinine Ratio 30 (6-26) H 12/08/18 00:39 Glucose 173 mg/dL (70-105) H 12/08/18 00:39 POC Glucose 354 mg/dL (70-99) H 12/07/18 18:54 Calcium 8.3 mg/dL (8.6-10.3) L 12/06/18 03:30 C-Reactive Protein 55 mg/L (Less than 10) H 12/08/18 00:39 Vancomycin Trough 12 mcg/mL (5-10) H 12/06/18 00:08 Urine Opiates Screen Positive ng/mL (Yenmcf=167) H 12/02/18 06:04 U Marijuana (THC) Screen Positive ng/mL (Cutoff = 50) H 12/02/18 06:04 Consult Discharge Plan - Plan Referrals: Arie Black MD [Primary Care Provider] -
[2018-12-08] MEDS: Cefepime HCl 2,000 MG in Water for inj. (sterile) 20 ML IVP SCH (09:20)
[2018-12-08] MEDS: Lactobacillus 1 EACH CAP.SPRINK PO SCH (09:21)
[2018-12-08] MEDS: Gabapentin 400 MG CAPSULE PO SCH (09:21)
[2018-12-08] MEDS: metroNIDAZOLE 500 MG TABLET PO SCH (09:21)
[2018-12-08] MEDS: Insulin NPH/REG 70/30 100 UNIT/ML (x5UNIT) SQ SCH (09:22)
[2018-12-08] MEDS: Aspirin Enteric Coated 81 MG Tablet PO SCH (09:22)
[2018-12-08 10:49] VITALS: BP 112/67
--- NOTE | 2018-12-08 11:13 | Infectious Disease Progress No ---
ID Progress Note Date of Encounter: 12/08/18 Time of Encounter: 10:30 - Subjective Subjective: Patient seen and examined. No acute events noted overnight. States pain in the right wrist persists, but is better today. Denies fevers, chills, rigors. Denies chest pain, shortness of breath, or cough. Denies nausea, vomiting, diarrhea. Reports constipation states he has not had a bowel movement in over 2 weeks. Denies abdominal pain or urinary complaints. States his appetite is good, but we are not feeding him enough. Denies oral thrush or skin rashes. Patient states he wants to go home today. - Objective CBC & Chem 7: 12/08/18 00:39 12/08/18 00:39 - Exam Vitals: Temp Pulse Resp BP Pulse Ox 98.1 F 81 17 112/67 95 12/08/18 10:47 12/08/18 10:47 12/08/18 10:47 12/08/18 10:47 12/08/18 10:47 Exam: Head: Atraumatic, normal inspection, normocephalic. Eye: EOMI, PERRLA, no scleral icterus noted. ENT: Mucous membranes moist. No odontogenic infection noted. Neck: Normal inspection, no meningismus. Respiratory: Clear to auscultation. No rales, respiratory distress, rhonchi, or wheezes noted. Cardiovascular: Regular rate and rhythm, S1 and S2 audible. No murmurs, rubs, or gallops. GI: Soft, nondistended, normal bowel sounds. Extremities: Right upper extremity dressing intact with small amount of bloody drainage noted. Positive motor and sensation to the distal extremity. Tenderness to palpation. Erythema and swelling receded from previous skin markings. ROM not assessed. Neurological: Alert, oriented 3, no focal deficits. Psychiatric: normal affect, normal mood. Skin: Dry, intact, warm. Normal color. No rashes. - Assessment and Plan (1) Sepsis Status: Acute The patient had 2 sepsis criteria on admission. Likely secondary to right hand and forearm cellulitis. Resolved. WBC normal. Afebrile. Blood cultures drawn at outside hospital are negative 2 sets. Qualifiers: Sepsis type: sepsis due to unspecified organism Qualified Code(s): A41.9 - Sepsis, unspecified organism SNOMED Code(s): 02142441 (2) Cellulitis of right upper extremity Status: Acute Location: Right upper extremity. Etiology: Unclear. Causative organism.: Unclear. Previous cultures positive for Klebsiella, Citrobacter, Morganella Enterococcus faecalis, and MRSA. It is unclear exactly how much IV antibiotics the patient completed after his previous infection as he did not follow-up with infectious disease as recommended. CT of the right hand 12/01/18 showed findings consistent with cellulitis without abscess or osteomyelitis. Orthopedics consult. Status post I&D revision 12/01/[address] Collado. Operative note reviewed. No gross purulence noted. Cultures are negative. Repeat MRI shows status post carpal tunnel release with proximal retraction of t he palmaris longus tendon and moderate tenosynovitis about the distal tendon. There is extensive edema within the deep and superficial forearm muscle compartments with mild edema along the fascial planes most pronounced distally. No significant fascial thickening or non-enhancement to suggest necrotizing process. Findings are compatible with reactive versus infectious myositis/fasciitis, however, and necrotizing process is not confirmed. There is diffuse subcutaneous edema compatible with reactive edema versus cellulitis and no well defined drainable fluid collection or osseous abnormality was noted. Repeat ESR and CRP improved. Status post repeat I&D and I&D of the right distal pole R radial forearm abscess 12/06/[address] Collado. Operative note reviewed. Deep abscess noted. Cultures are pending. Gram stain added this morning. Shows few GPC and few GNR. Currently on cefepime, Flagyl, and vancomycin. SNOMED Code(s): 744167277 (3) Nicotine use disorder Status: Acute SNOMED Code(s): 01311098 (4) PTSD (post-traumatic stress disorder) Status: Acute SNOMED Code(s): 03175490 (5) Tobacco abuse Status: Acute Nicotine replacement therapy per the primary team. SNOMED Code(s): 003984954 (6) Penicillin allergy Status: Acute Patient states he had anaphylaxis when he was very young. Tolerating cefepime currently and tolerated Rocephin in the past without a problem. SNOMED Code(s): 71654268 (7) Diabetes Status: Chronic Recommend aggressive glucose monitoring and control to promote wound healing and prevent reinfection. Patient noncompliant with Accu-Cheks, but is agreeable to do twice daily Accu- Cheks. Management per the primary team. Qualifiers: Diabetes mellitus type: type 2 Diabetes mellitus fdc insulin use: with fdc use Diabetes mellitus complication status: with neurologic complications Diabetes mellitus complication detail: with polyneuropathy Qualified Code(s): E11.42 - Type 2 diabetes mellitus with diabetic polyneuropathy; Z79.4 - manager terminal (current) use of insulin SNOMED Code(s): 47678119 (8) Constipation Status: Acute The patient states she has not had a bowel movement in 2 weeks. Management per the primary team. Qualifiers: Constipation type: unspecified constipation type Qualified Code(s): K59.00 - Constipation, unspecified SNOMED Code(s): 26620333 - Recommendations Recommendations: Await repeat Intra-Op cultures. Wound care per the orthopedics team. Bowel regimen per the primary team. Continue cefepime 2 g IV every 12 hours. Continue Flagyl 500 mg 3 times a day, but switched to by mouth. Continue vancomycin IV. Pharmacy to dose. Goal trough approximately 15. Duration of treatment with the clinical picture. Discussed with Dr. Tate that the patient would benefit from IV antibiotics, which I agree with. However, I am not sure the patient is able to do the IV antibiotics at home and I believe there was a cost issue last time. Based on previous conversations, I don't think he will agree to ECF placement. We are limited in regards to oral options that would cover what grew on previous cultures due to his PCN allergy. Monitor renal function and for drug toxicity and dose adjust antibiotics. Contact precautions per hospital policy. Consult Discharge Plan - Plan Instructions: Cellulitis (DC), Diabetes Mellitus Type 2 in Adults (DC), Sepsis (DC) Referrals: Glenna Maier CNP [Advanced Practice Nurse] - Arie Black MD [Primary Care Provider] - Henry Tate MD [Partnered Physician] - Prescriptions: metroNIDAZOLE [Flagyl] 500 mg PO TID 14 Days #42 tablet levoFLOXacin [Levaquin] 750 mg PO DAILY 14 Days #14 tablet Linezolid [Zyvox] 600 mg PO BID 14 Days #28 tablet - Attending Attestation I have personally performed a face to face evaluation on this patient. I have reviewed and agree with the care plan. History and Exam by me shows: Assessment and plan: 1.Sepsis 2.Cellulitis of the right upper extremity causative organism not clear previous cultures were positive for Klebsiella, Citrobacter, Morganella, enterococcus and MRSA 3.status post I&D by Dr. Collado 12/01/2018 4.PTSD 5.Nicotine use disorder Patient apparently was offended by somebody. Not sure was. By the time I recommend the floor to evaluate him he was over the without referred standing in the hallway asking the nurse to remove his PICC line. Apparently the hospitalist team were aware of the patient wanted to leave" him prescription for oral antibiotics. Prognosis is guarded at best
--- NOTE | 2018-12-08 12:47 | Discharge Summary ---
- NOTES TO OUTPATIENT PROVIDER Notes to Outpatient Provider: Signed out AMA after being treated for R UE abscess/cellulitis with I&D x2 and IV Abx. Orders not resulted at time of discharge: Pending orders 12/06/18 17:57 Culture,Anaerobic [RM] Routine Culture,Wound [RM] Routine 12/07/18 11:15 AFB Culture, Body Fluid [TB] Routine Fungal Culture [MYC] Routine Date of Encounter: 12/08/18 Time of Encounter: 10:15 - Discharge Diagnosis (1) Sepsis Priority: Primary Status: Acute Qualifiers: Sepsis type: sepsis due to unspecified organism Qualified Code(s): A41.9 - Sepsis, unspecified organism (2) Abscess of right hand Priority: Secondary Status: Acute (3) Cellulitis of right upper extremity Priority: Secondary Status: Acute (4) Diabetes Priority: Secondary Status: Chronic Qualifiers: Diabetes mellitus type: type 2 Diabetes mellitus jail insulin use: with 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 Beaulieu is a 57 year old male with history of diabetes and recent polymicrobial R hand infection requiring surgical intervention and IV Abx who was again admitted for sepsis secondary to right upper extremity abscess. There was a concern on whether he adequately received treatment after the last discharge in September 2018. Underwent I&D twice during this hospitalization with the 2nd procedure on 12/06 showing deep abscess in the right distal volar radial forearm region. Clinically improved with broad-spectrum antibiotics. Both wound cultures have been negative for any bacterial growth. Patient was managed in consultation with orthopedics and infectious disease. Given the severe bout of infection last time (that may not have been adequately treated) and the findings of abscess intraoperatively as well as myositis on MRI, he was advised for 2 week course of IV antibiotics at [facility]. Unfortunately, patient declined despite understanding the risk of worsening infection, loss of limb, and possible and decided to sign out AMA as he did not want to be discharged to [facility]. AFter discussing with ID, scripts for Levaquin, Zyvox, and flagyl was provided to the patient and he was strongly recommended to follow up with ID and Orthopedics as outpatient. Documentation for continuing home health was also completed although he left AMA instead of being discharged. Discharge discussed with: patient, nurse, social work, hospice consultant - Time Spent with Patient Total time spent providing and/or coordinating discharge services: 36 mins - Discharge Medications Prescriptions: New metroNIDAZOLE [Flagyl] 500 mg PO TID 14 Days #42 tablet levoFLOXacin [Levaquin] 750 mg PO DAILY 14 Days #14 tablet Linezolid [Zyvox] 600 mg PO BID 14 Days #28 tablet Continued RX: Insulin Glargine [Lantus] 15 unit SQ DAILY RX: Gabapentin 800 mg PO TID RX: Dapagliflozin Propanediol [Farxiga] 10 mg PO DAILY RX: Aspirin [Lo-Dose Aspirin EC] 81 mg PO DAILY RX: Albuterol Sulfate [Ventolin Hfa] 2 puff IH Q4H PRN PRN Reason: Shortness Of Breath RX: Albuterol Neb [Proventil Neb] 2.5 mg IH TID PRN PRN Reason: Shortness Of Breath RX: Sildenafil Citrate 100 mg PO AD PRN PRN Reason: ERECTION RX: Multivit-Min/FA/Lycopen/Lutein [Centrum Silver Tablet] 1 tab PO DAILY Apple Cider Vinegar 30 ml PO BID RX: Tamsulosin HCl [Flomax] 0.4 mg PO HS RX: Cholecalciferol (Vitamin D3) [Vitamin D3] 2,000 unit PO DAILY Home Medications: RX: Albuterol Neb [Proventil Neb] 2.5 mg IH TID PRN 10/04/18 [History] RX: Albuterol Sulfate [Ventolin Hfa] 2 puff IH Q4H PRN 10/04/18 [History] RX: Aspirin [Lo-Dose Aspirin EC] 81 mg PO DAILY 10/04/18 [History] RX: Dapagliflozin Propanediol [Farxiga] 10 mg PO DAILY 10/04/18 [History] RX: Gabapentin 800 mg PO TID 10/04/18 [History] RX: Insulin Glargine [Lantus] 15 unit SQ DAILY 10/04/18 [History] Apple Cider Vinegar 30 ml PO BID 12/02/18 [History] RX: Cholecalciferol (Vitamin D3) [Vitamin D3] 2,000 unit PO DAILY 12/02/18 [History] RX: Multivit-Min/FA/Lycopen/Lutein [Centrum Silver Tablet] 1 tab PO DAILY 12/02/18 [History] RX: Sildenafil Citrate 100 mg PO AD PRN 12/02/18 [History] RX: Tamsulosin HCl [Flomax] 0.4 mg PO HS 12/02/18 [History] Linezolid [Zyvox] 600 mg PO BID 14 Days #28 tablet 12/08/18 [Rx] levoFLOXacin [Levaquin] 750 mg PO DAILY 14 Days #14 tablet 12/08/18 [Rx] metroNIDAZOLE [Flagyl] 500 mg PO TID 14 Days #42 tablet 12/08/18 [Rx] Allergies/Adverse Reactions: Allergy/AdvReac Type Severity Reaction Status Date / Time Penicillins Allergy Anaphylaxis Verified 12/02/18 13:07 Date of admission: 12/06/18 16:15 Primary care physician: Arie Black MD Consults: 12/01/18 09:31 Consult to Orthopedic Surgery [CONS] Routine Consulting Provider: [facility] Reason for Consult: Right hand cellulitis Time Notified: 09:31 Call Completed: Yes 12/04/18 13:50 Consult to Infectious Diseases [CONS] Routine Consulting Provider: [facility]ious [facility] Reason for Consult: Right hand cellulitis and Abscess Time Notified: 13:51 Call Completed: Yes 12/06/18 10:01 Consult to Pastoral Services [CONS] Routine Comment: Patient's request to have consult 12/06/18 12:00 Consult to Kinder Teacher [CONS] Routine Reason for SW Consult: Pt currently has HH, [facility] [place] with [facility]C planning - Constitutional Vitals: Temp Pulse Resp BP Pulse Ox 98.1 F 81 17 112/67 95 12/08/18 10:47 12/08/18 10:47 12/08/18 10:47 12/08/18 10:47 12/08/18 10:47 General appearance: Present: cooperative, mild distress, answers questions appropriately. Absent: pleasant Exam: General: Patient is alert, no acute distress, oriented x 3 Respiratory: Good respiratory effort. Normal breath sounds. No wheezing or crackles. Cardiovascular: Regular rate and rhythm. s1 and s2 normal No clicks, rubs, gallops, or murmurs. No pedal edema Abdomen: Abdomen is soft, nontender. Bowel sounds are present Musculoskeletal: Spontaneously moving all extremities Skin: Right forearm dressing c/d/i. Able to perform flexion/extension of the digits without significant difficulty Neuro: Alert oriented x 3 normal cranial nerves, no focal deficits - Patient Status Disposition: Left Against Medical Advice - Discharge Instructions Instructions: Cellulitis (DC), Sepsis (DC), Diabetes Mellitus Type 2 in Adults (DC) Follow Up With: Arie Black MD [Primary Care Provider] - Glenna Maier CNP [Advanced Practice Nurse] - Henry Tate MD [Partnered Physician] - - Diet and Activity Activity: resume usual activities as tolerated Diet: diabetic diet
--- NOTE | 2018-12-08 12:57 | Physician Discharge Referral ---
Home Health/Hosp Referral Info Transfer to: Home Health Provider in Charge Post Discharge: PCP - Diagnosis (1) Sepsis Priority: Primary Status: Acute (2) Abscess of right hand Priority: Secondary Status: Acute (3) Cellulitis of right upper extremity Priority: Secondary Status: Acute (4) Diabetes Priority: Secondary Status: Chronic - Respiratory Orders Smoking Cessation: Smoking cessation has been advised. For more information, call the [place] [employer] Quit Line at [phone]-NOW. - Services Needed Following services are medically necessary services: Nursing - Transfer Medications Prescriptions: metroNIDAZOLE [Flagyl] 500 mg PO TID 14 Days #42 tablet levoFLOXacin [Levaquin] 750 mg PO DAILY 14 Days #14 tablet Linezolid [Zyvox] 600 mg PO BID 14 Days #28 tablet Home Medications: Albuterol Neb [Proventil Neb] 2.5 mg IH TID PRN 10/04/18 [History] Albuterol Sulfate [Ventolin Hfa] 2 puff IH Q4H PRN 10/04/18 [History] Aspirin [Lo-Dose Aspirin EC] 81 mg PO DAILY 10/04/18 [History] Dapagliflozin Propanediol [Farxiga] 10 mg PO DAILY 10/04/18 [History] Gabapentin 800 mg PO TID 10/04/18 [History] Insulin Glargine [Lantus] 15 unit SQ DAILY 10/04/18 [History] Apple Cider Vinegar 30 ml PO BID 12/02/18 [History] Cholecalciferol (Vitamin D3) [Vitamin D3] 2,000 unit PO DAILY 12/02/18 [History] Multivit-Min/FA/Lycopen/Lutein [Centrum Silver Tablet] 1 tab PO DAILY 12/02/18 [History] Sildenafil Citrate 100 mg PO AD PRN 12/02/18 [History] Tamsulosin HCl [Flomax] 0.4 mg PO HS 12/02/18 [History] Linezolid [Zyvox] 600 mg PO BID 14 Days #28 tablet 12/08/18 [Rx] levoFLOXacin [Levaquin] 750 mg PO DAILY 14 Days #14 tablet 12/08/18 [Rx] metroNIDAZOLE [Flagyl] 500 mg PO TID 14 Days #42 tablet 12/08/18 [Rx] Allergies/Adverse Reactions: Allergy/AdvReac Type Severity Reaction Status Date / Time Penicillins Allergy Anaphylaxis Verified 12/02/18 13:07 Certification: Further, I certify that my clinical findings support that this patient is homebound (i.e. absences from home require considerable and taxing effort and are for medical reasons or jainism services or infrequently or short duration when for other reasons) because: Homebound Reason: Patient requires assistance of a person or device to safely leave home Attestation: My signature below is to certify that this patient is under my care and that I, or nurse practitioner, or a physician's respiratory therapy assistant working with me, has a [id number] encounter with this patient.
[2018-12-08] MEDS ORDERED: Insulin LISPRO 300 UNITS/3 ML VIAL SQ SCH ×4 (13:00→21:00)
[2018-12-08] MEDS ORDERED: Aminoglycoside Consult 1 EACH MC ONE (13:25)
== END 2018-12-08 13:26 | disposition left against medical advice (07) | DRG 854 ==
LOC: 3NENU → SUATTDRO 05:11
PROVIDERS: ADMIT Family Medicine; ATTEND Internal Medicine